=== PATIENT | female | born 1950 | race Caucasian/White ===

== ENCOUNTER 2020-06-20 19:58 | Inpatient (IN) ==
--- OUTSIDE RECORDS SUMMARY | 2020-06-20 20:01 | External Medical Summary | Continuity of Care Document ---
:1950 Author Name Kathy Alves Address Unavailable Unavailable , Care Team Providers Name Role Phone Peewee SAENZ Unavailable [email or web address] Unavailable Problems Active medical history not documented Allergies and Adverse Reactions Codeine Derivatives (Allergy) Reaction: Itching Darvocet-N 100 TABS (Allergy) Reaction: Itching Erythromycin TABS (Allergy) Reaction: It zoraida Imitrex TABS (Allergy) Reaction: Itching Penicillins (Allergy) Reaction: Itching Medications Tessalon Perles 100 MG Oral Capsule; TAKE 1 CAPSULE 3 TIMES DAILY. Refills: 0 clonazePAM 0.5 MG Oral Tablet; TAKE 1 TABLET 3 TIMES DAILY A S NEEDED. Refills: 0 Maxalt 10 MG Oral Tablet; TAKE 1 TABLET AT ONSET OF HEADACHE. MAY REPEAT EVERY 2 HOURS NEEDED. MAXIMUM 3 TABLETS IN 24 HOURS. Refills: 0 Ventolin HFA 108 (90 Base) MCG/ACT Inhal ation Aerosol Solution; INHALE 1 TO 2 PUFFS EVERY 4 TO 6 HOURS NEEDED. Refills: 0 Albuterol Sulfate NEBU Refills: 0 traMADol HCl - 50 MG Oral Tablet; once daily. Refills: 0 traZODone HCl - 150 MG Oral Tablet; TAKE 2 TABLETS AT BEDTIM E. Refills: 0 Mirtazapine 45 MG Oral Tablet; TAKE 1 TABLET AT BEDTIME. Refills: 0 PriLOSEC OTC 20 MG Oral Tablet Delayed Release; TAKE 1 TABLE T DAILY. Refills: 0 Glimepiride 1 MG Oral Tablet; once daily. Refills: 0 Effexor XR 150 MG Oral Capsule Extended Release 24 Hour; MARIN E 1 CAPSULE DAILY. Refills: 0 Simvastatin 40 MG Oral Tablet; TAKE 1 TABLET DAILY AT BEDTIM E. Quantity: 90 Refills: 3 Advair Diskus 500-50 MCG/DOSE Inhalation Aerosol Powder Breath Activated; INHALE 1 PUFF TWICE DAILY. Refills: 0 Magnesium Oxide 400 MG Oral Tablet; TAKE 1 TABLET TWICE CLAYTON Y. Refills: 0 Fenofibrate 134 MG Oral Capsule; TAKE 1 CAPSULE DAILY. Refills: 0 Procedures Procedures not documented Immunizations Immunizations not documented Plan of Treatment Planned Observations Planned Goals not documented Results No Known Results Results not documented Encounters Appointment; Ronda Vides PA-C 04-Dec-2014 15:10 Encounter Diagnosis: Problem not documented
--- NOTE | 2020-06-20 20:06 | Emergency Department Note ---
Impression & Plan Hypoglycemia, COVID-19 ED Provider Note NAME: KANA PACKER AGE: 69 SEX: F : 1950 ARRIVES VIA: Ambulance INFORMANT: Patient, ED PROVIDER(S): Patrick Hamm MD Chief Complaint: Hypoglycemia HPI: Patient reportedly was brought in by EMS due to concern for hypoglycemia. The patient did have a blood sugar in the 30s subsequently 20s was given D10 in route and upon arrival was in the 120s. Patient does take glimepiride as well as Metformin. Patient states she is had no recent changes in her medications. The patient denies any chest pain or shortness of breath. The patient does have a dry nonproductive cough and had a recent inpatient stay in quarantine after Covid. The patient was most recently discharged from [facility]. Patient is a non-smoker. Patient denies any recent travel dysuria hematuria. Patient does have chronic constipation. The patient states that she has been eating normally although she thinks her last meal was lunch time. Patient denies any diarrheal symptoms or vomiting. ROS: See HPI for pertinent positives and negatives. A total of 10 systems were reviewed and otherwise negative. Past medical history: See below Surgical history: See below Social history: See below Physical Exam: GENERAL: Wearing glasses. NAD, non-toxic. EYE EXAM: Normal conjunctiva. PERRL, no anisocoria and EOM's grossly intact w/o pain. NECK: Supple, no nuchal rigidity, no adenopathy, non-tender. No signs of meningismus. LUNGS: Clear to auscultation. Normal chest wall mechanics. HEART: Tachycardic and regular, no MRG. ABDOMEN: Abdomen soft, non-tender, normo-active bowel sounds, no masses, no rebound or guarding. BACK: No CVA TTP. SKIN: No rashes and no bruising. UPPER EXTREMITIES: Upper extremities are grossly normal. LOWER EXTREMITIES: Grossly normal, no edema. NEURO EXAM: A&O x3, cranial nerves II-XII grossly intact, normal speech, moves all 4 extremities on command w/o issue. Differential diagnoses: Infection, dehydration, metabolic abnormality, hypo/hyperglycemia, electrolyte disturbance, anemia, hypoxia, cardiac sources, intracerebral event, toxicologic, neurologic, as well as other pathologies. Course: Patient was seen and evaluated the bedside. Full history physical exam was performed. EKG: Indication: Weakness Sinus tachycardia, rate of 106, normal intervals, left axis deviation. No obvious ST changes. Imaging Studies: 1 view chest x-ray No obvious consolidation, pneumothorax or pleural effusion. Cardiac monitoring: An order was placed for continuous cardiac monitoring. The monitor shows a rate of 102 with sinus tachycardia rhythm. MDM: Patient was seen due to concern for hypoglycemia. Blood work was obtained and the patient was ordered repeat BSG in 1 hour. Patient has a normal white count H&H and platelet count. Patient did have a glucose of 45 and was given an amp of D50. The patient was started on D5 half. Repeat BSG at 302 D5 was stopped. I did speak with the patient's daughter with the patient's permission, who stated that just prior to dinnertime the patient was confused and not making sense. No recent changes in any medications but was recently discharged last from [facility] due to weakness and a week prior had been admitted due to concern for Covid. Patient with normal white count H&H and platelet count. Patient's kidney function is unremarkable. Troponin not detectable. Urinalysis without signs of obvious infection. Patient does have leuk esterase and WBCs but with numerous epithelial cells. The patient denied any dysuria. The patient still positive for Covid negative flu and RSV. Given the patient's intermittent hypoglycemia and the fact that the patient is on sulfonylureas, I did speak with the on-call hospitalist. The patient was admitted to the medicine service by Dr. Gale Critical Care: I have personally spent 37 minutes of critical care time in direct management of this patient. This includes bedside care, interpretation of diagnostic studies, and testing, discussion with consultants, patient, and family members, and other require inpatient management activities. This 37 minutes is in excess of all separately billable procedures. Past Med/Surg History Medical History Diabetes GERD (gastroesophageal reflux disease) HLD (hyperlipidemia) Social History Smoking Status: Never smoker Preferred Language: German Feels Safe at Home: Yes Allergies Allergies Allergy/AdvReac Type Severity Reaction Status Date / Time codeine Allergy Unknown Itchiness Verified 06/20/20 20:52 erythromycin base Allergy Unknown Itchiness Verified 06/20/20 20:52 Penicillins Allergy Unknown Itchiness Verified 06/20/20 20:52 propoxyphene Allergy Unknown UNKNOWN Verified 06/20/20 20:52 sumatriptan Allergy Unknown Unknown Verified 06/20/20 20:52 adhesive tape AdvReac Mild "Rips skin Unverified 06/20/20 20:52 off with it" Home Meds Home Medications Medication Instructions Recorded Confirmed albuterol sulfate 2 puff INHALATION DIRECTED PRN 06/20/20 06/20/20 celecoxib 200 mg PO QAM 06/20/20 06/20/20 cholecalciferol (vitamin D3) 2,000 unit PO QAM 06/20/20 06/20/20 [Vitamin D3] cyclobenzaprine 10 mg PO TID PRN 06/20/20 06/20/20 fenofibrate micronized 134 mg PO QAM 06/20/20 06/20/20 fluticasone propionate 1 spray INTRANASAL QAM 06/20/20 06/20/20 gabapentin 300 mg PO TID 06/20/20 06/20/20 glimepiride 4 mg PO BID 06/20/20 06/20/20 linaclotide [Linzess] 145 mcg PO QAM 06/20/20 06/20/20 magnesium oxide 400 mg PO BID 06/20/20 06/20/20 metformin 500 mg PO BID 06/20/20 06/20/20 piroxicam 20 mg PO QAM 06/20/20 06/20/20 rizatriptan 10 mg PO DIRECTED PRN 06/20/20 06/20/20 rosuvastatin 40 mg PO PM 06/20/20 06/20/20 tramadol 50 mg PO Q6H PRN 06/20/20 06/20/20 venlafaxine 150 mg PO QAM 06/20/20 06/20/20 Results & Data (ED) Vital Signs Vital Signs - 24 hr 06/20/20 20:12 06/20/20 20:27 06/20/20 20:30 Temperature Temperature Source Pulse Rate 92 H 92 H 92 H Pulse Rate [Bilateral Apical] Pulse Rate from SpO2 Sensor 91 H 92 H 92 H Pulse Rhythm Respiratory Rate 17 24 16 Respiratory Effort / Characteristics Respiratory Depth Blood Pressure 147/96 H Blood Pressure [Left Arm] Blood Pressure Mean 113 Blood Pressure Mean [Left Arm] Blood Pressure Position Pulse Oximetry 95 95 97 Oxygen Delivery Method Sepsis Recent Fever Within 48 Hours Sepsis New/Unexplained Change in Mental Status Sepsis Action Taken by Nursing 06/20/20 20:45 06/20/20 20:50 06/20/20 21:00 Temperature 36.8 C Temperature Source Oral Pulse Rate 97 H 98 H 98 H Pulse Rate [Bilateral Apical] Pulse Rate from SpO2 Sensor Pulse Rhythm Regular Respiratory Rate 20 20 19 Respiratory Effort / Characteristics Non-Labored Respiratory Depth Normal Blood Pressure Blood Pressure [Left Arm] Blood Pressure Mean Blood Pressure Mean [Left Arm] Blood Pressure Position Lying Pulse Oximetry 93 93 Oxygen Delivery Method Room Air Room Air Sepsis Recent Fever Within 48 Hours No Sepsis New/Unexplained Change in Mental Status No Sepsis Action Taken by Nursing No Action Required 06/20/20 21:16 06/20/20 21:30 06/20/20 21:31 Temperature Temperature Source Pulse Rate 100 H 97 H 96 H Pulse Rate [Bilateral Apical] Pulse Rate from SpO2 Sensor 102 H 97 H Pulse Rhythm Respiratory Rate 18 18 16 Respiratory Effort / Characteristics Respiratory Depth Blood Pressure 138/78 136/80 Blood Pressure [Left Arm] Blood Pressure Mean 98 98 Blood Pressure Mean [Left Arm] Blood Pressure Position Pulse Oximetry 96 94 Oxygen Delivery Method Sepsis Recent Fever Within 48 Hours Sepsis New/Unexplained Change in Mental Status Sepsis Action Taken by Nursing 06/20/20 22:00 06/20/20 22:01 06/20/20 23:23 Temperature Temperature Source Pulse Rate 98 H 98 H Pulse Rate [Bilateral Apical] 78 Pulse Rate from SpO2 Sensor 98 H 98 H Pulse Rhythm Respiratory Rate 20 22 20 Respiratory Effort / Characteristics Respiratory Depth Blood Pressure 137/78 Blood Pressure [Left Arm] 133/78 Blood Pressure Mean 97 Blood Pressure Mean [Left Arm] 96 Blood Pressure Position Pulse Oximetry 91 90 95 Oxygen Delivery Method Sepsis Recent Fever Within 48 Hours Sepsis New/Unexplained Change in Mental Status Sepsis Action Taken by [facility] Medications Current Medication List: was personally reviewed by me Laboratory Data Attestation: I reviewed the patient's lab results. Result diagrams: 06/20/20 19:30 06/20/20 21:08 Lab Results 06/20/20 06/20/20 06/20/20 Range/Units 19:30 19:30 19:30 WBC 7.64 (4.8-10.8) K/uL RBC 4.68 (4.2-5.4) M/uL Hgb 14.2 (12.0-16.0) g/dL Hct 40.8 (37-47) % MCV 87.2 (80-100) fL MCH 30.3 (25-34) pg MCHC 34.8 (32-36) g/dL RDW Std Deviation 45.7 (36.4-46.3) fL RDW Coeff of Rufus 14.6 H (11.5-14.5) % Plt Count 377 (130-400) K/uL MPV 10.3 (7.4-10.4) fL Immature Gran % (Auto) 0.1 % Neut % (Auto) 60.8 % Lymph % (Auto) 30.9 % Moca % (Auto) 5.8 % Eos % (Auto) 2.1 % Baso % (Auto) 0.3 % Neut # (Auto) 4.65 (1.4-6.5) K/uL Lymph # (Auto) 2.36 (1.2-3.4) K/uL Moca # (Auto) 0.44 (0.11-0.59) K/uL Eos # (Auto) 0.16 (0-0.5) K/uL Baso # (Auto) 0.02 (0-0.2) K/uL Immature Gran # (Auto) 0.01 (0.00-0.02) K/uL PT 10.6 (9.0-12.0) Seconds INR 1.0 (0.9-1.1) Sodium Cancelled Potassium Cancelled Chloride Cancelled Carbon Dioxide Cancelled Anion Gap Cancelled BUN Cancelled Creatinine Cancelled Est Cr Clr Drug Dosing Cancelled Est GFR ( Amer) Cancelled Est GFR (Non-Af Amer) Cancelled BUN/Creatinine Ratio Cancelled Glucose Cancelled POC Glucose (70-99) mg/dl Calcium Cancelled Magnesium Cancelled Total Bilirubin Cancelled AST Cancelled ALT Cancelled Alkaline Phosphatase Cancelled Troponin I Cancelled Total Protein Cancelled Albumin Cancelled Globulin Cancelled Albumin/Globulin Ratio Cancelled TSH Cancelled Urine Color Urine Appearance (Clear) Urine pH (4.5-7.5) Ur Specific Kevil (1.000-1.030) Urine Protein (Negative) Urine Glucose (UA) (Negative) Urine Ketones (Negative) Urine Blood (Negative) Urine Nitrite (Negative) Urine Bilirubin (Negative) Urine Urobilinogen (Negative) Ur Leukocyte Esterase (Negative) Urine WBC (Auto) (0-5) /hpf Urine RBC (Auto) (0-4) /hpf U Hyaline Cast (Auto) (0-5) /lpf U Epithel Cells (Auto) (0-5) /lpf Urine Bacteria (Auto) (Negative) COVID-19 Eval Order SARS-CoV-2 (PCR) (Negative) Influenza Type A (PCR) (Neg) Influenza Type B (PCR) (Neg) RSV (RT-PCR) (Neg) 06/20/20 06/20/20 06/20/20 Range/Units 20:09 20:35 20:35 WBC (4.8-10.8) K/uL RBC (4.2-5.4) M/uL Hgb (12.0-16.0) g/dL Hct (37-47) % MCV (80-100) fL MCH (25-34) pg MCHC (32-36) g/dL RDW Std Deviation (36.4-46.3) fL RDW Coeff of Rufus (11.5-14.5) % Plt Count (130-400) K/uL MPV (7.4-10.4) fL Immature Gran % (Auto) % Neut % (Auto) % Lymph % (Auto) % Moca % (Auto) % Eos % (Auto) % Baso % (Auto) % Neut # (Auto) (1.4-6.5) K/uL Lymph # (Auto) (1.2-3.4) K/uL Moca # (Auto) (0.11-0.59) K/uL Eos # (Auto) (0-0.5) K/uL Baso # (Auto) (0-0.2) K/uL Immature Gran # (Auto) (0.00-0.02) K/uL PT (9.0-12.0) Seconds INR (0.9-1.1) Sodium Potassium Chloride Carbon Dioxide Anion Gap BUN Creatinine Est Cr Clr Drug Dosing Est GFR ( Amer) Est GFR (Non-Af Amer) BUN/Creatinine Ratio Glucose POC Glucose 127 H (70-99) mg/dl Calcium Magnesium Total Bilirubin AST ALT Alkaline Phosphatase Troponin I Total Protein Albumin Globulin Albumin/Globulin Ratio TSH Urine Color Urine Appearance (Clear) Urine pH (4.5-7.5) Ur Specific Kevil (1.000-1.030) Urine Protein (Negative) Urine Glucose (UA) (Negative) Urine Ketones (Negative) Urine Blood (Negative) Urine Nitrite (Negative) Urine Bilirubin (Negative) Urine Urobilinogen (Negative) Ur Leukocyte Esterase (Negative) Urine WBC (Auto) (0-5) /hpf Urine RBC (Auto) (0-4) /hpf U Hyaline Cast (Auto) (0-5) /lpf U Epithel Cells (Auto) (0-5) /lpf Urine Bacteria (Auto) (Negative) COVID-19 Eval Order CovFluRsv at [facility] SARS-CoV-2 (PCR) POSITIVE A* (Negative) Influenza Type A (PCR) Negative (Neg) Influenza Type B (PCR) Negative (Neg) RSV (RT-PCR) Negative (Neg) 06/20/20 06/20/20 06/20/20 Range/Units 21:00 21:08 21:32 WBC (4.8-10.8) K/uL RBC (4.2-5.4) M/uL Hgb (12.0-16.0) g/dL Hct (37-47) % MCV (80-100) fL MCH (25-34) pg MCHC (32-36) g/dL RDW Std Deviation (36.4-46.3) fL RDW Coeff of Rufus (11.5-14.5) % Plt Count (130-400) K/uL MPV (7.4-10.4) fL Immature Gran % (Auto) % Neut % (Auto) % Lymph % (Auto) % Moca % (Auto) % Eos % (Auto) % Baso % (Auto) % Neut # (Auto) (1.4-6.5) K/uL Lymph # (Auto) (1.2-3.4) K/uL Moca # (Auto) (0.11-0.59) K/uL Eos # (Auto) (0-0.5) K/uL Baso # (Auto) (0-0.2) K/uL Immature Gran # (Auto) (0.00-0.02) K/uL PT (9.0-12.0) Seconds INR (0.9-1.1) Sodium 142 Potassium 3.6 Chloride 110 H Carbon Dioxide 26 Anion Gap 6.0 BUN 15 Creatinine 1.14 Est Cr Clr Drug Dosing 36.8 Est GFR ( Amer) 56.8 Est GFR (Non-Af Amer) 49.0 BUN/Creatinine Ratio 13.4 Glucose 39 L* POC Glucose 45 L* 321 H* (70-99) mg/dl Calcium 8.4 L Magnesium 2.1 Total Bilirubin 0.4 AST 34 ALT 36 Alkaline Phosphatase 39 L Troponin I < 0.015 Total Protein 6.1 L Albumin 3.6 Globulin 2.5 Albumin/Globulin Ratio 1.4 TSH 0.832 Urine Color Urine Appearance (Clear) Urine pH (4.5-7.5) Ur Specific Kevil (1.000-1.030) Urine Protein (Negative) Urine Glucose (UA) (Negative) Urine Ketones (Negative) Urine Blood (Negative) Urine Nitrite (Negative) Urine Bilirubin (Negative) Urine Urobilinogen (Negative) Ur Leukocyte Esterase (Negative) Urine WBC (Auto) (0-5) /hpf Urine RBC (Auto) (0-4) /hpf U Hyaline Cast (Auto) (0-5) /lpf U Epithel Cells (Auto) (0-5) /lpf Urine Bacteria (Auto) (Negative) COVID-19 Eval Order SARS-CoV-2 (PCR) (Negative) Influenza Type A (PCR) (Neg) Influenza Type B (PCR) (Neg) RSV (RT-PCR) (Neg) 06/20/20 06/20/20 Range/Units 22:32 22:40 WBC (4.8-10.8) K/uL RBC (4.2-5.4) M/uL Hgb (12.0-16.0) g/dL Hct (37-47) % MCV (80-100) fL MCH (25-34) pg MCHC (32-36) g/dL RDW Std Deviation (36.4-46.3) fL RDW Coeff of Rufus (11.5-14.5) % Plt Count (130-400) K/uL MPV (7.4-10.4) fL Immature Gran % (Auto) % Neut % (Auto) % Lymph % (Auto) % Moca % (Auto) % Eos % (Auto) % Baso % (Auto) % Neut # (Auto) (1.4-6.5) K/uL Lymph # (Auto) (1.2-3.4) K/uL Moca # (Auto) (0.11-0.59) K/uL Eos # (Auto) (0-0.5) K/uL Baso # (Auto) (0-0.2) K/uL Immature Gran # (Auto) (0.00-0.02) K/uL PT (9.0-12.0) Seconds INR (0.9-1.1) Sodium Potassium Chloride Carbon Dioxide Anion Gap BUN Creatinine Est Cr Clr Drug Dosing Est GFR ( Amer) Est GFR (Non-Af Amer) BUN/Creatinine Ratio Glucose POC Glucose 212 H (70-99) mg/dl Calcium Magnesium Total Bilirubin AST ALT Alkaline Phosphatase Troponin I Total Protein Albumin Globulin Albumin/Globulin Ratio TSH Urine Color Yellow Urine Appearance Clear (Clear) Urine pH 6.5 (4.5-7.5) Ur Specific Kevil 1.006 (1.000-1.030) Urine Protein Negative (Negative) Urine Glucose (UA) 1+ H (Negative) Urine Ketones Negative (Negative) Urine Blood Negative (Negative) Urine Nitrite Negative (Negative) Urine Bilirubin Negative (Negative) Urine Urobilinogen Negative (Negative) Ur Leukocyte Esterase Trace H (Negative) Urine WBC (Auto) 5-10 H (0-5) /hpf Urine RBC (Auto) 0-4 (0-4) /hpf U Hyaline Cast (Auto) 0 (0-5) /lpf U Epithel Cells (Auto) >30 H (0-5) /lpf Urine Bacteria (Auto) Negative (Negative) COVID-19 Eval Order SARS-CoV-2 (PCR) (Negative) Influenza Type A (PCR) (Neg) Influenza Type B (PCR) (Neg) RSV (RT-PCR) (Neg) Administered Medications Dextrose/Sodium Chloride (D5w And 1/2nss) 1,000 mls @ 250 mls/hr IV .Q4H MARTINA Stop: 07/20/20 21:14 Last Infusion: 06/20/20 21:44 Dose: 0 mls/hr Documented by: [id number] Admin: 06/20/20 21:16 Dose: 250 mls/hr Documented by: [id number] Discontinued Medications Dextrose (Dextrose 50% 50 Ml Syringe) Confirm Administered Dose 50 ml IV .STK- MED ONE Stop: 06/20/20 21:04 Last Admin: 06/20/20 21:06 Dose: 50 ml Documented by: [id number] Dextrose (Dextrose 50% 50 Ml Syringe) 50 ml IV NOW STA Stop: 06/20/20 21:05 Last Admin: 06/20/20 21:07 Dose: Not Given Documented by: [id number] Sodium Chloride (Nss 1000ml) 1,000 mls @ 999 mls/hr IV .Q1H1M MARTINA Stop: 06/20/20 21:30 Last Infusion: 06/20/20 21:20 Dose: 0 mls/hr Documented by: [id number] Infusion: 06/20/20 21:08 Dose: 0 mls/hr Documented by: [id number] Admin: 06/20/20 20:32 Dose: 999 mls/hr Documented by: [id number] Ondansetron HCl (Ondansetron Inj 2 Mg/Ml 2 Ml Vial) 4 mg IV NOW STA Stop: 06/20/20 20:17 Last Admin: 06/20/20 20:29 Dose: 4 mg Documented by: [id number] Discharge Plan Visit Data Chief Complaint: Hypoglycemia Stated Complaint: UNRESPONSIVE ED Provider: Patrick Hamm Discharge Problem: Hypoglycemia, COVID-19 Forms Stand Alone Forms: [facility] [employer] Prescriptions Prescriptions: No Action celecoxib 200 mg capsule 200 mg PO QAM RF: 0 cyclobenzaprine 10 mg tablet 10 mg PO TID PRN (Reason: muscle spasms) RF: 0 metformin 500 mg tablet 500 mg PO BID RF: 0 rizatriptan 10 mg tablet 10 mg PO DIRECTED PRN (Reason: Migraine Headache) RF: 0 venlafaxine 150 mg capsule,extended release 24hr 150 mg PO QAM RF: 0 tramadol 50 mg tablet 50 mg PO Q6H PRN (Reason: Pain) RF: 0 fenofibrate micronized 134 mg capsule 134 mg PO QAM RF: 0 magnesium oxide 400 mg (241.3 mg magnesium) tablet 400 mg PO BID RF: 0 glimepiride 4 mg tablet 4 mg PO BID RF: 0 gabapentin 300 mg capsule 300 mg PO TID RF: 0 albuterol sulfate 90 mcg/actuation HFA aerosol inhaler 2 puff INHALATION DIRECTED PRN (Reason: Shortness Of Breath) RF: 0 piroxicam 20 mg capsule 20 mg PO QAM RF: 0 fluticasone propionate 50 mcg/actuation spray,suspension 1 spray INTRANASAL QAM RF: 0 rosuvastatin 40 mg tablet 40 mg PO PM RF: 0 cholecalciferol (vitamin D3) [Vitamin D3] 50 mcg (2,000 unit) tablet 2,000 unit PO QAM RF: 0 Linzess 145 mcg capsule 145 mcg PO QAM RF: 0
[2020-06-20] MEDS ORDERED: ONDANSETRON INJ 2 MG/ML 2 ML VIAL IV STA (20:16)
[2020-06-20] MEDS ORDERED: SODIUM CHLORIDE 0.9% 1000ML 1,000 ML IV SCH (20:30)
[2020-06-20 20:33] LABS: Basophils # (auto) 0.02 K/uL (0-0.2); Basophils % (auto) 0.3 %; Eosinophils # (auto) 0.16 K/uL (0-0.5); Eosinophils % (auto) 2.1 %; Hematocrit (blood only) 40.8 % (37-47); Hemoglobin 14.2 g/dL (12.0-16.0); Immature Granulocytes # (auto) 0.01 K/uL (0.00-0.02); Immature Granulocytes % (auto) 0.1 %; Lymphocytes # (auto) 2.36 K/uL (1.2-3.4); Lymphocytes % (auto) 30.9 %; Mean Corpuscular Hemoglobin 30.3 pg (25-34); Mean Corpuscular Hgb Conc 34.8 g/dL (32-36); Mean Corpuscular Volume 87.2 fL (80-100); Mean Platelet Volume 10.3 fL (7.4-10.4); Monocytes # (auto) 0.44 K/uL (0.11-0.59); Monocytes % (auto) 5.8 %; Neutrophils # (auto) 4.65 K/uL (1.4-6.5); Neutrophils % (auto) 60.8 %; Platelet Count 377 K/uL (130-400); RDW Coefficient of Variation 14.6 % (11.5-14.5); RDW Standard Deviation 45.7 fL (36.4-46.3); Red Blood Count 4.68 M/uL (4.2-5.4); White Blood Count 7.64 K/uL (4.8-10.8)
[2020-06-20 20:43] LABS: Prothrombin Time 10.6 Seconds (9.0-12.0)
[2020-06-20] MEDS ORDERED: DEXTROSE 50% 50 ML SYRINGE IV ONE (21:03)
[2020-06-20] MEDS ORDERED: DEXTROSE 50% 50 ML SYRINGE IV STA (21:04)
[2020-06-20] MEDS ORDERED: D5W AND 1/2NSS 1,000 ML IV SCH (21:15)
[2020-06-20 21:26] LABS: Influenza A virus by PCR Negative (Neg); Influenza B virus by PCR Negative (Neg); RSV by PCR Negative (Neg)
[2020-06-20 21:39] LABS: Alanine Aminotransferase 36 U/L (12-78); Albumin Level 3.6 gm/dl (3.4-5.0); Aspartate Aminotransferase 34 U/L (15-37); BUN Creatinine Ratio 13.4 (10-20); Blood Urea Nitrogen 15 mg/dl (7-18); Calcium 8.4 mg/dl (8.5-10.1); Carbon Dioxide 26 mmol/L (21-32); Chloride 110 mmol/L (98-107); Creatinine Clr Calc Pharmacy 36.8 ml/min; Est GFR (African American) 56.8; Glucose 39 mg/dl (70-99); Magnesium 2.1 mg/dl (1.8-2.4); Potassium 3.6 mmol/L (3.5-5.1); Sodium 142 mmol/L (136-145)
[2020-06-20 21:39] LABS: SARS CoV2 RNA(COVID-19) InHosp POSITIVE (Negative)
[2020-06-20 21:51] LABS: Albumin Globulin Ratio 1.4 (0.9-2); Alkaline Phosphatase 39 U/L (45-117); Bilirubin,Total 0.4 mg/dl (0.2-1); Globulin 2.5 gm/dl (2.5-4.0); Thyroid Stimulating Hormone 0.832 uIu/ml (0.300-4.500); Total Protein 6.1 gm/dl (6.4-8.2); Troponin I < 0.015 ng/ml (0-0.045)
[2020-06-20 22:49] LABS: Appearance Urine Clear (Clear); Bilirubin Urine Negative (Negative); Blood Urine Negative (Negative); Color Urine Yellow; Glucose Urine UA 1+ (Negative); Ketones Urine Negative (Negative); Leukocyte Esterase Urine Trace (Negative); Nitrite Urine Negative (Negative); Protein Urine Negative (Negative); Specific Gravity Urine 1.006 (1.000-1.030); Urobilinogen Urine Negative (Negative); pH Urine 6.5 (4.5-7.5)
[2020-06-20 23:00] LABS: Bacteria Urine Automated Negative (Negative); Cast Urine Automated 0 /lpf (0-5); Epithelial Cell Urine Auto >30 /lpf (0-5); RBC Urine Automated 0-4 /hpf (0-4)
--- NOTE | 2020-06-20 23:52 | History & Physical Report ---
Date of Service June 20, 2020 Assessment & Plan (1) Diabetes mellitus with hypoglycemia: Hold glimepiride and Metformin. Place on D5 normal saline plus KCl 20 mEq at [address] on Accu-Cheks before meals and at bedtime with NovoLog coverage for scale Check hemoglobin A1c Unclear at this time as to why patient became hypoglycemic. She did report decreased oral intake earlier today, and patient was somewhat confused about medications when talking with the techs in the ED Present on Admission?: Yes (2) COVID-19: COVID-19 infection with hypoxia- Chest x-ray appears normal, however, will keep in isolation at this time until records can be reviewed Pulse ox on room air variable from 90 to 95%. Nasal cannula oxygen, titrate to keep pulse ox 94 to 95% Patient reportedly was in [facility] twice in the recent interval, with most recent discharge a few days ago, for treatment of COVID-19. Patient does test positive for COVID-19 in the ED this evening, but does not appear to have significant symptoms at this time. Zinc sulfate 220 mg p.o. every morning Vitamin D 2000 international units p.o. every morning Ventolin HFA 2 puffs every 2 hours as needed, and DuoNebs every 2 hours as needed. Present on Admission?: Yes (3) Hypoxia: See above Present on Admission?: Yes (4) HLD (hyperlipidemia): Continue fenofibrate 145 mg p.o. daily and rosuvastatin 40 mg p.o. every evening Present on Admission?: Yes (5) Depression: Continue venlafaxine 150 mg p.o. daily in the a.m. Present on Admission?: Yes (6) Muscle spasm: Continue cyclobenzaprine 10 mg p.o. 3 times daily as needed Present on Admission?: Yes (7) Migraine headache: Continue rizatriptan as needed Present on Admission?: Yes (8) Peripheral neuropathy: Continue gabapentin 300 mg p.o. 3 times daily Present on Admission?: Yes (9) Arthritis: Continue Celebrex 200 mg p.o. every morning. Hold piroxicam. Continue tramadol 50 mg p.o. every 6 hours as needed moderate pain Present on Admission?: Yes History of Present Illness Chief Complaint: The patient was brought into the emergency department by EMS after having a blood sugar in the 20s and 30s in the outpatient setting. Primary Care Provider: PT DECLINED The patient is a 69-year-old female with a past medical history including muscle spasm, hyperlipidemia, peripheral neuropathy, diabetes mellitus, diabetic gastroparesis, osteoarthritis, migraine headache, depression and chronic pain syndrome. Her HPI is somewhat limited as the patient is confused in the emergency department, but she was brought into the emergency department by EMS due to low blood sugars in the 20s to 30sand after being given D10 en route her blood sugar was 120s upon arrival in the ED. The patient denies taking any extra diabetic medications, and she does remember eating oatmeal for breakfast in the morning, but cannot contributing further at this point. She does report that she was in [facility] twice for treatment for COVID-19 infection, and was discharged from there a few days ago. She cannot say how she was treated and for what interval of times. Allergies Allergy/AdvReac Type Severity Reaction Status Date / Time codeine Allergy Unknown Itchiness Verified 06/20/20 20:52 erythromycin base Allergy Unknown Itchiness Verified 06/20/20 20:52 Penicillins Allergy Unknown Itchiness Verified 06/20/20 20:52 propoxyphene Allergy Unknown UNKNOWN Verified 06/20/20 20:52 sumatriptan Allergy Unknown Unknown Verified 06/20/20 20:52 adhesive tape AdvReac Mild "Rips skin Unverified 06/20/20 20:52 off with it" Home Medications Medication Instructions Recorded Confirmed Type albuterol sulfate 2 puff INHALATION DIRECTED PRN 06/20/20 06/20/20 History celecoxib 200 mg PO QAM 06/20/20 06/20/20 History cholecalciferol (vitamin D3) 2,000 unit PO QAM 06/20/20 06/20/20 History [Vitamin D3] cyclobenzaprine 10 mg PO TID PRN 06/20/20 06/20/20 History fenofibrate micronized 134 mg PO QAM 06/20/20 06/20/20 History fluticasone propionate 1 spray INTRANASAL QAM 06/20/20 06/20/20 History gabapentin 300 mg PO TID 06/20/20 06/20/20 History glimepiride 4 mg PO BID 06/20/20 06/20/20 History linaclotide [Linzess] 145 mcg PO QAM 06/20/20 06/20/20 History magnesium oxide 400 mg PO BID 06/20/20 06/20/20 History metformin 500 mg PO BID 06/20/20 06/20/20 History piroxicam 20 mg PO QAM 06/20/20 06/20/20 History rizatriptan 10 mg PO DIRECTED PRN 06/20/20 06/20/20 History rosuvastatin 40 mg PO PM 06/20/20 06/20/20 History tramadol 50 mg PO Q6H PRN 06/20/20 06/20/20 History venlafaxine 150 mg PO QAM 06/20/20 06/20/20 History Past Med/Surg History Medical History Diabetes GERD (gastroesophageal reflux disease) HLD (hyperlipidemia) Social History Smoking Status: Never smoker Hx Alcohol Use: No Hx Substance Use: No Preferred Language: [place]ijani Communication Ability: Effective Solution Spec Required: No Beliefs That Will Affect Care: None Current Living Situation: Alone Other Information That Helps Us Care for You: No Feels Safe at Home: Yes Safety Concerns: Feels Safe At This Time Assistive Devices: Denture - Upper and Glasses Review of Systems Review of Systems: Unobtainable due to cognitive status Physical Exam Physical Exam: The patient is awake, confused, normocephalic and atraumatic, lying in bed and in no acute distress. HEENT--PERRL, EOMI, mucous membranes and oropharynx dry. Neck--supple. No JVD. No bruits. Thyroid normal, trachea midline, no adenopathy. Heart--normal S1 and S2. No murmurs, rubs or gallops. Lungs--clear bilaterally, no respiratory distress, no accessory muscle use. Abdomen--normal bowel sounds and soft. Nontender. Nondistended, no hernias or masses, no organomegaly. Extremities--no cyanosis or clubbing. No edema. Dermatologic--normal skin turgor, normal color, no abnormal lymph nodes, no rash. Neurologic--cranial nerves II through XII grossly intact. Rheumatologic--normal range of motion. Psychiatric--normal affect, but confused Results & Data Results & Data ([place]) Vital Signs (Past 12 Hours) Vital Signs Temp Pulse Pulse Resp BP BP Pulse Ox 06/20/20 23:23 78 20 133/78 95 06/20/20 22:01 98 H 22 90 06/20/20 22:00 98 H 20 137/78 91 06/20/20 21:31 96 H 16 06/20/20 21:30 97 H 18 136/80 94 06/20/20 21:16 100 H 18 138/78 96 06/20/20 21:00 98 H 19 06/20/20 20:50 98 H 20 93 06/20/20 20:45 98.2 F 97 H 20 93 06/20/20 20:30 92 H 16 97 06/20/20 20:27 92 H 24 95 06/20/20 20:12 92 H 17 147/96 H 95 Laboratory Results Laboratory Results WBC 7.64 K/uL (4.8-10.8) 06/20/20 19:30 RBC 4.68 M/uL (4.2-5.4) 06/20/20 19:30 Hgb 14.2 g/dL (12.0-16.0) 06/20/20 19:30 Hct 40.8 % (37-47) 06/20/20 19:30 MCV 87.2 fL (80-100) 06/20/20 19:30 MCH 30.3 pg (25-34) 06/20/20 19:30 MCHC 34.8 g/dL (32-36) 06/20/20 19:30 RDW Std Deviation 45.7 fL (36.4-46.3) 06/20/20 19:30 RDW Coeff of Rufus 14.6 % (11.5-14.5) H 06/20/20 19:30 Plt Count 377 K/uL (130-400) 06/20/20 19:30 MPV 10.3 fL (7.4-10.4) 06/20/20 19:30 Immature Gran % (Auto) 0.1 % 06/20/20 19:30 Neut % (Auto) 60.8 % 06/20/20 19:30 Lymph % (Auto) 30.9 % 06/20/20 19:30 Orange % (Auto) 5.8 % 06/20/20 19:30 Eos % (Auto) 2.1 % 06/20/20 19:30 Baso % (Auto) 0.3 % 06/20/20 19:30 Neut # (Auto) 4.65 K/uL (1.4-6.5) 06/20/20 19:30 Lymph # (Auto) 2.36 K/uL (1.2-3.4) 06/20/20 19:30 Orange # (Auto) 0.44 K/uL (0.11-0.59) 06/20/20 19:30 Eos # (Auto) 0.16 K/uL (0-0.5) 06/20/20 19:30 Baso # (Auto) 0.02 K/uL (0-0.2) 06/20/20 19:30 Immature Gran # (Auto) 0.01 K/uL (0.00-0.02) 06/20/20 19:30 PT 10.6 Seconds (9.0-12.0) 06/20/20 19: INR 1.0 (0.9-1.1) 06/20/20 19:30 Sodium 142 mmol/L (136-145) 06/20/20 21:08 Potassium 3.6 mmol/L (3.5-5.1) 06/20/20 21:08 Chloride 110 mmol/L (98-107) H 06/20/20 21:08 Carbon Dioxide 26 mmol/L (21-32) 06/20/20 21:08 Anion Gap 6.0 (3-11) 06/20/20 21:08 BUN 15 mg/dl (7-18) 06/20/20 21:08 Creatinine 1.14 mg/dl (0.6-1.2) 06/20/20 21:08 Est Cr Clr Drug Dosing 36.8 ml/min 06/20/20 21:08 Est GFR ( Amer) 56.8 06/20/20 21:08 Est GFR (Non-Af Amer) 49.0 06/20/20 21:08 BUN/Creatinine Ratio 13.4 (10-20) 06/20/20 21:08 Glucose 39 mg/dl (70-99) L* 06/20/20 21:08 POC Glucose 150 mg/dl (70-99) H 06/21/20 02:00 Calcium 8.4 mg/dl (8.5-10.1) L 06/20/20 21:08 Magnesium 2.1 mg/dl (1.8-2.4) 06/20/20 21:08 Total Bilirubin 0.4 mg/dl (0.2-1) 06/20/20 21:08 AST 34 U/L (15-37) 06/20/20 21:08 ALT 36 U/L (12-78) 06/20/20 21:08 Alkaline Phosphatase 39 U/L (45-117) L 06/20/20 21:08 Troponin I < 0.015 ng/ml (0-0.045) 06/20/20 21:08 Total Protein 6.1 gm/dl (6.4-8.2) L 06/20/20 21:08 Albumin 3.6 gm/dl (3.4-5.0) 06/20/20 21:08 Globulin 2.5 gm/dl (2.5-4.0) 06/20/20 21:08 Albumin/Globulin Ratio 1.4 (0.9-2) 06/20/20 21:08 TSH 0.832 uIu/ml (0.300-4.500) 06/20/20 21:08 Urine Color Yellow 06/20/20 22:40 Urine Appearance Clear (Clear) 06/20/20 22:40 Urine pH 6.5 (4.5-7.5) 06/20/20 22:40 Ur Specific [place] 1.006 (1.000-1.030) 06/20/20 22:40 Urine Protein Negative (Negative) 06/20/20 22:40 Urine Glucose (UA) 1+ (Negative) H 06/20/20 22:40 Urine Ketones Negative (Negative) 06/20/20 22:40 Urine Blood Negative (Negative) 06/20/20 22:40 Urine Nitrite Negative (Negative) 06/20/20 22:40 Urine Bilirubin Negative (Negative) 06/20/20 22:40 Urine Urobilinogen Negative (Negative) 06/20/20 22:40 Ur Leukocyte Esterase Trace (Negative) H 06/20/20 22:40 Urine WBC (Auto) 5-10 /hpf (0-5) H 06/20/20 22:40 Urine RBC (Auto) 0-4 /hpf (0-4) 06/20/20 22:40 U Hyaline Cast (Auto) 0 /lpf (0-5) 06/20/20 22:40 U Epithel Cells (Auto) >30 /lpf (0-5) H 06/20/20 22:40 Urine Bacteria (Auto) Negative (Negative) 06/20/20 22:40 COVID-19 Eval Order CovFluRsv at [facility] 06/20/20 20:35 SARS-CoV-2 (PCR) POSITIVE (Negative) A* 06/20/20 20:35 Influenza Type A (PCR) Negative (Neg) 06/20/20 20:35 Influenza Type B (PCR) Negative (Neg) 06/20/20 20:35 RSV (RT-PCR) Negative (Neg) 06/20/20 20:35 Code Status & VTE Plan Code Status Full code VTE Prophylaxis Plan VTE Prophylaxis will be ordered: Yes PG Care Time/CCT Total # of Minutes Spent Total Time Spent with Patient: Total time spent is greater than 50% in coordination of care (as documented) at patient's floor/unit and/or counseling patient: Coding Level of Care Code 35480 Initial Inpt Care Lvl 3 Diagnoses Diabetes mellitus with hypoglycemia E11.649 COVID-19 U07.1 Hypoxia R09.02 HLD (hyperlipidemia) E78.5 Depression F32.9 Muscle spasm M62.838 Migraine headache G43.909 Peripheral neuropathy G62.9 Arthritis M19.90
[2020-06-21] MEDS ORDERED: traMADol HCL 50 MG TABLET PO PRN (01:06)
[2020-06-21] MEDS ORDERED: GLUCAGON FOR INJ 1 MG VIAL SQ PRN (01:06)
[2020-06-21] MEDS ORDERED: RIZATRIPTAN BENZOATE 10 MG TAB PO PRN (01:06)
[2020-06-21] MEDS ORDERED: GLUCOSE 10 TABS/TUBE PO PRN (01:06)
[2020-06-21] MEDS ORDERED: ONDANSETRON INJ 2 MG/ML 2 ML VIAL IV PRN (01:06)
[2020-06-21] MEDS ORDERED: GLUCOSE 40% GEL 15 GM TUBE PO PRN (01:06)
[2020-06-21] MEDS ORDERED: ALBUTEROL HFA 8 GM INHALER INH PRN (01:06)
[2020-06-21] MEDS ORDERED: ACETAMINOPHEN 325 MG TAB PO PRN (01:06)
[2020-06-21] MEDS ORDERED: CARBOHYDRATES FOR HYPOGLYCEMIA PO PRN (01:06)
[2020-06-21] MEDS ORDERED: DEXTROSE 50% 50 ML SYRINGE IV ONE (01:08)
[2020-06-21] MEDS ORDERED: CYCLOBENZAPRINE HCL 10 MG TAB PO PRN (01:09)
[2020-06-21] MEDS: DEXTROSE 50% 50 ML SYRINGE IV PRN ×2 (01:12→04:10)
[2020-06-21] MEDS: D5NSS + 20MEQ KCL 20 MEQ/1,000 ML BAG IV SCH ×2 (01:23→10:22)
--- NOTE | 2020-06-21 07:08 | XRay Report ---
XR chest 1V portable CLINICAL HISTORY: weakness COMPARISON STUDY: Chest radiograph and chest CT November 02, 2014. FINDINGS: Lung volumes are normal. Linear bilateral opacities favor atelectasis or scarring. There is no pneumothorax or pleural effusion. Cardiac size is normal. Mediastinal contours are normal. There is no evidence for pulmonary edema. IMPRESSION: No acute cardiopulmonary findings. ACT 112: Negative or not required by law. Electronically signed by: Fausto Yoon M.D. 06/21/2020 7:06 AM
[2020-06-21 08:08] LABS: Basophils # (auto) 0.02 K/uL (0-0.2); Basophils % (auto) 0.3 %; Eosinophils # (auto) 0.22 K/uL (0-0.5); Eosinophils % (auto) 3.7 %; Hematocrit (blood only) 35.9 % (37-47); Hemoglobin 12.2 g/dL (12.0-16.0); Immature Granulocytes # (auto) 0.01 K/uL (0.00-0.02); Immature Granulocytes % (auto) 0.2 %; Lymphocytes # (auto) 2.56 K/uL (1.2-3.4); Lymphocytes % (auto) 43.1 %; Mean Corpuscular Volume 88.4 fL (80-100); Mean Platelet Volume 9.9 fL (7.4-10.4); Monocytes # (auto) 0.47 K/uL (0.11-0.59); Monocytes % (auto) 7.9 %; Neutrophils # (auto) 2.66 K/uL (1.4-6.5); Neutrophils % (auto) 44.8 %; Platelet Count 317 K/uL (130-400); RDW Coefficient of Variation 14.9 % (11.5-14.5); RDW Standard Deviation 47.5 fL (36.4-46.3); Red Blood Count 4.06 M/uL (4.2-5.4); White Blood Count 5.94 K/uL (4.8-10.8)
[2020-06-21] MEDS: TRICOR~ORDER AWAITING ACTION SCH ×3 (08:12→21:53)
[2020-06-21] MEDS: MAGNESIUM OXIDE 400 MG TAB PO SCH ×2 (08:13→19:59)
[2020-06-21] MEDS: VENLAFAXINE HCL XR 150 MG CAPXR PO SCH (08:13)
[2020-06-21] MEDS: ZINC SULFATE 220 MG CAPSULE PO SCH (08:13)
[2020-06-21] MEDS: CeleBREX 200 MG CAP PO SCH (08:13)
[2020-06-21] MEDS: GABAPENTIN 300 MG CAP PO SCH ×3 (08:13→19:59)
[2020-06-21] MEDS: CHOLECALCIFEROL 1,000 UNITS 25 MCG TAB PO SCH (08:13)
[2020-06-21] MEDS: LINACLOTIDE 145 MCG CAPSULE PO SCH (08:14)
[2020-06-21] MEDS: INSULIN ASPART 100 UNITS/ML 3 ML PEN SC SCH ×4 (08:18→20:57)
[2020-06-21 08:46] LABS: Albumin Level 3.4 gm/dl (3.4-5.0); BUN Creatinine Ratio 12.4 (10-20); Calcium 8.7 mg/dl (8.5-10.1); Creatinine Clr Calc Pharmacy 39.6 ml/min; Est GFR (Non-African American) 53.5; Potassium 3.8 mmol/L (3.5-5.1)
[2020-06-21 08:49] LABS: Albumin Globulin Ratio 1.4 (0.9-2); Bilirubin,Total 0.4 mg/dl (0.2-1); Globulin 2.5 gm/dl (2.5-4.0); Total Protein 5.9 gm/dl (6.4-8.2)
[2020-06-21 09:00] LABS: Estimated Average Glucose 157 mg/dl; Hemoglobin A1C 7.1 % (4.5-5.6)
--- NOTE | 2020-06-21 12:24 | Electrocardiogram Report ---
Test Reason : Blood Pressure : / mmHG Vent. Rate : 106 BPM Atrial Rate : 106 BPM P-R Int : 168 ms QRS Dur : 074 ms QT Int : 334 ms P-R-T Axes : 040 -53 036 degrees QTc Int : 443 ms Sinus tachycardia Left axis deviation Anterior infarct (cited on or before 02-NOV-2014) Abnormal ECG When compared with ECG of 02-NOV-2014 21:11, No significant change was found Confirmed by Bimal Zuniga ([id number]) on 06/21/2020 12:24:46 PM Referred By: REFERRED SELF Confirmed By:Bimal Zuniga
--- NOTE | 2020-06-21 17:10 | Magnetic Resonance Report ---
MRI OF THE BRAIN WITHOUT IV CONTRAST CLINICAL HISTORY: Migraine headache. Shaking spells. Recent Covid infection. COMPARISON STUDY: No priors. TECHNIQUE: MRI of the brain was performed utilizing various T1 and T2-weighted sequences in the axial , sagittal, and coronal planes. IV contrast was not administered for this examination. FINDINGS: Brain parenchyma: There is age-related involutional change noting moderate subcortical and periventri cular microangiopathic disease. There is no hemorrhage or mass effect. There is no restricted diffusi on to suggest acute ischemia. Ritchie-white matter differentiation is preserved. No extra-axial fluid co llection is seen. The cerebellar tonsils are normal in configuration. Mineralization is noted in the basal ganglia. Ventricles, sulci, and cisterns: Prominent secondary to involutional change. Pituitary and sella: Unremarkable. Intracranial vasculature: Normal flow voids are maintained at the skull base. Orbits: The bony orbits are grossly intact. Orbital contents are normal in appearance noting bilatera l ocular lens implants. Sinuses and mastoids: There is a 1.4 cm retention cyst in the left maxillary antrum. The paranasal si nuses are otherwise clear. The mastoid air cells are well pneumatized. Calvarium: Unremarkable. Cervical cord: Partially visualized cervical spinal cord is normal in morphology and signal intensity . IMPRESSION: No acute intracranial abnormality. ACT 112: Negative or not required by law. Electronically signed by: Zeeshan Weeks M.D. 06/21/2020 5:08 PM
[2020-06-21] MEDS ORDERED: dexAMETHasone 4 MG TAB PO ONE (19:00)
[2020-06-21] MEDS: ROSUVASTATIN CALCIUM 20 MG TAB PO SCH (19:59)
[2020-06-21] MEDS ORDERED: ENOXAPARIN INJ 40 MG/0.4 ML SYR SQ ONE (20:45)
--- NOTE | 2020-06-21 21:09 | Hospitalist Progress Note ---
Date of Service June 21, 2020 Assessment & Plan (1) Seizure-like activity: Daughter witnessed 3 discrete episodes of such. Very well could have been tremors/shakiness from severe hypoglycemia or actual seizure events from same. Cannot rule out seizure like activity in the setting of COVID infection and [employer]OCK[employer] effects from such. MRI brain ordered. EEG ordered. (2) Diabetes mellitus with hypoglycemia: a1c 7.1% daughter reports patient had been on additional meds beyond metformin and glimepiride - those additional meds were stopped sometime in the recent past. presenting severe hypoglycemia - suspect combination of anorexia in the setting of COVID illness along with sulfonylurea use. oral meds now on hold. hypoglycemia resolved. stop IV fluids. suspect BSGs will now become elevated with steroid use for COVID - see below. obtain DM education consult. (3) COVID-19: dx 06/06/20 upon admission to [facility]. Hospitalized 06/06/20 to 06/08/20, d/c to home. Readmitted to [facility] 06/15 and d/c again back to home on 06/17. Was sick with COVID symptoms several days prior to 06/06/20. Although cxr was negative at admission, she has ongoing cough along with b/l rales on exam c/w pneumonitis. I cannot find record of dexamethasone use during the above admissions nor from pharmacy records. Thus, start dexamethasone 6mg po daily x 10 days, first dose now. Albuterol prn. Consider adding low-dose aspirin for the next several weeks to prevent complications from COVID. can d/c airborne - 15-20 days out from start of illness. d/w infection quality control representative. (4) Metabolic encephalopathy: 2nd to hypoglycemia. Resolved. Mental status seems to be at baseline today. (5) HLD (hyperlipidemia): Continue fenofibrate 145 mg p.o. daily and rosuvastatin 40 mg p.o. every evening (6) Depression: Continue venlafaxine 150 mg p.o. daily in the a.m. (7) Muscle spasm: Continue cyclobenzaprine 10 mg p.o. 3 times daily as needed (8) Migraine headache: Continue rizatriptan as needed (9) Peripheral neuropathy: Continue gabapentin 300 mg p.o. 3 times daily Presumed diabetic polyneuropathy (10) Arthritis: Continue Celebrex 200 mg p.o. every morning. Hold piroxicam. Continue tramadol 50 mg p.o. every 6 hours as needed moderate pain. (11) DVT prophylaxis: lovenox daily daughter updated by phone today Admission and Anticipated Discharge Date Admission Date: June 20, 2020 Subjective Patient's daughter reports that patient had 3 "staring spells" in the 24 hours leading up to this admission. First episode was Sunday pm, then had 1 yesterday am and another yesterday afternoon. Arms/legs would shake, was altered during these spells, then would become lethargic after. Shaking spells lasted about 15 minutes each. Lethargy was 30-60 minutes or more after spell. Upon EMS arrival to her home yesterday her BSG was 34. Since early this am her BSGs have been wnl. Patient was hospitalized twice since 06/06 for COVID illness at [facility]. Patient reports no dexamethasone use upon discharge from either hospitalization. Med rec history also does not show steroids. She continues with cough - mainly dry, and has SMITH. No dyspnea at rest. Has been a diabetic "for a long time" and also reports a personal history of asthma. Review of Systems Constitutional: + fatigue and + anorexia; no fever, no chills and no body aches Ear, Nose, Mouth, Throat: denies loss of taste/smell Respiratory: no sputum production Cardiovascular: no chest pain Gastrointestinal: no abdominal pain and no diarrhea/loose stools Physical Exam Constitutional: + thin; no acute distress, not ill appearing and no altered mental status coughing ENMT: external ear and nose normal, oropharynx normal Respiratory: no respiratory distress Auscultation: + rales; no wheezes Cardiovascular: Rate/Rhythm: regular rhythm and + tachycardic Heart Sounds: normal S1 and normal S2; no murmur Vessels: posterior tibial pulses present and dorsalis pedis pulses present; no JVD Extremities: no edema Gastrointestinal (Abdomen): normal bowel sounds, soft, nontender, no hepatosplenomegaly Neurologic: moves all extremities and awake; no focal motor deficits and not confused Psychiatric: A+Ox3, euthymic affect Results & Data Results & Data ([facility]) Vital Signs (Past 12 Hours) Vital Signs Temp Pulse Pulse Pulse Resp BP BP 06/21/20 20:00 37 C 101 H 18 161/88 H 06/21/20 16:00 99 H 06/21/20 15:45 37.2 C 99 H 20 146/90 H 06/21/20 12:27 37.3 C 98 H 18 135/77 Pulse Ox 06/21/20 20:00 95 06/21/20 16:00 06/21/20 15:45 93 06/21/20 12:27 95 Laboratory Results Laboratory Results - last 24 hr 06/20/20 06/20/20 06/20/20 20:35 21:08 21:32 WBC RBC Hgb Hct MCV MCH MCHC RDW Std Deviation RDW Coeff of Rufus Plt Count MPV Immature Gran % (Auto) Neut % (Auto) Lymph % (Auto) Victoria % (Auto) Eos % (Auto) Baso % (Auto) Neut # (Auto) Lymph # (Auto) Victoria # (Auto) Eos # (Auto) Baso # (Auto) Immature Gran # (Auto) Sodium 142 Potassium 3.6 Chloride 110 H Carbon Dioxide 26 Anion Gap 6.0 BUN 15 Creatinine 1.14 Est Cr Clr Drug Dosing 36.8 Est GFR ( Amer) 56.8 Est GFR (Non-Af Amer) 49.0 BUN/Creatinine Ratio 13.4 Glucose 39 L* POC Glucose 321 H* Estimat Average Glucose Hemoglobin A1c Calcium 8.4 L Magnesium 2.1 Total Bilirubin 0.4 AST 34 ALT 36 Alkaline Phosphatase 39 L Troponin I < 0.015 Total Protein 6.1 L Albumin 3.6 Globulin 2.5 Albumin/Globulin Ratio 1.4 TSH 0.832 Urine Color Urine Appearance Urine pH Ur Specific Fork Urine Protein Urine Glucose (UA) Urine Ketones Urine Blood Urine Nitrite Urine Bilirubin Urine Urobilinogen Ur Leukocyte Esterase Urine WBC (Auto) Urine RBC (Auto) U Hyaline Cast (Auto) U Epithel Cells (Auto) Urine Bacteria (Auto) SARS-CoV-2 (PCR) POSITIVE A* Influenza Type A (PCR) Negative Influenza Type B (PCR) Negative RSV (RT-PCR) Negative 06/20/20 06/20/20 06/20/20 22:32 22:40 23:21 WBC RBC Hgb Hct MCV MCH MCHC RDW Std Deviation RDW Coeff of Rufus Plt Count MPV Immature Gran % (Auto) Neut % (Auto) Lymph % (Auto) Victoria % (Auto) Eos % (Auto) Baso % (Auto) Neut # (Auto) Lymph # (Auto) Victoria # (Auto) Eos # (Auto) Baso # (Auto) Immature Gran # (Auto) Sodium Potassium Chloride Carbon Dioxide Anion Gap BUN Creatinine Est Cr Clr Drug Dosing Est GFR ( Amer) Est GFR (Non-Af Amer) BUN/Creatinine Ratio Glucose POC Glucose 212 H 182 H Estimat Average Glucose Hemoglobin A1c Calcium Magnesium Total Bilirubin AST ALT Alkaline Phosphatase Troponin I Total Protein Albumin Globulin Albumin/Globulin Ratio TSH Urine Color Yellow Urine Appearance Clear Urine pH 6.5 Ur Specific Fork 1.006 Urine Protein Negative Urine Glucose (UA) 1+ H Urine Ketones Negative Urine Blood Negative Urine Nitrite Negative Urine Bilirubin Negative Urine Urobilinogen Negative Ur Leukocyte Esterase Trace H Urine WBC (Auto) 5-10 H Urine RBC (Auto) 0-4 U Hyaline Cast (Auto) 0 U Epithel Cells (Auto) >30 H Urine Bacteria (Auto) Negative SARS-CoV-2 (PCR) Influenza Type A (PCR) Influenza Type B (PCR) RSV (RT-PCR) 06/21/20 06/21/20 06/21/20 00:13 01:04 01:26 WBC RBC Hgb Hct MCV MCH MCHC RDW Std Deviation RDW Coeff of Rufus Plt Count MPV Immature Gran % (Auto) Neut % (Auto) Lymph % (Auto) Victoria % (Auto) Eos % (Auto) Baso % (Auto) Neut # (Auto) Lymph # (Auto) Victoria # (Auto) Eos # (Auto) Baso # (Auto) Immature Gran # (Auto) Sodium Potassium Chloride Carbon Dioxide Anion Gap BUN Creatinine Est Cr Clr Drug Dosing Est GFR ( Amer) Est GFR (Non-Af Amer) BUN/Creatinine Ratio Glucose POC Glucose 99 33 L* 171 H Estimat Average Glucose Hemoglobin A1c Calcium Magnesium Total Bilirubin AST ALT Alkaline Phosphatase Troponin I Total Protein Albumin Globulin Albumin/Globulin Ratio TSH Urine Color Urine Appearance Urine pH Ur Specific Fork Urine Protein Urine Glucose (UA) Urine Ketones Urine Blood Urine Nitrite Urine Bilirubin Urine Urobilinogen Ur Leukocyte Esterase Urine WBC (Auto) Urine RBC (Auto) U Hyaline Cast (Auto) U Epithel Cells (Auto) Urine Bacteria (Auto) SARS-CoV-2 (PCR) Influenza Type A (PCR) Influenza Type B (PCR) RSV (RT-PCR) 06/21/20 06/21/20 06/21/20 02:00 03:01 04:06 WBC RBC Hgb Hct MCV MCH MCHC RDW Std Deviation RDW Coeff of Rufus Plt Count MPV Immature Gran % (Auto) Neut % (Auto) Lymph % (Auto) Victoria % (Auto) Eos % (Auto) Baso % (Auto) Neut # (Auto) Lymph # (Auto) Victoria # (Auto) Eos # (Auto) Baso # (Auto) Immature Gran # (Auto) Sodium Potassium Chloride Carbon Dioxide Anion Gap BUN Creatinine Est Cr Clr Drug Dosing Est GFR ( Amer) Est GFR (Non-Af Amer) BUN/Creatinine Ratio Glucose POC Glucose 150 H 117 H 57 L* Estimat Average Glucose Hemoglobin A1c Calcium Magnesium Total Bilirubin AST ALT Alkaline Phosphatase Troponin I Total Protein Albumin Globulin Albumin/Globulin Ratio TSH Urine Color Urine Appearance Urine pH Ur Specific Fork Urine Protein Urine Glucose (UA) Urine Ketones Urine Blood Urine Nitrite Urine Bilirubin Urine Urobilinogen Ur Leukocyte Esterase Urine WBC (Auto) Urine RBC (Auto) U Hyaline Cast (Auto) U Epithel Cells (Auto) Urine Bacteria (Auto) SARS-CoV-2 (PCR) Influenza Type A (PCR) Influenza Type B (PCR) RSV (RT-PCR) 06/21/20 06/21/20 06/21/20 04:23 05:00 06:00 WBC RBC Hgb Hct MCV MCH MCHC RDW Std Deviation RDW Coeff of Rufus Plt Count MPV Immature Gran % (Auto) Neut % (Auto) Lymph % (Auto) Victoria % (Auto) Eos % (Auto) Baso % (Auto) Neut # (Auto) Lymph # (Auto) Victoria # (Auto) Eos # (Auto) Baso # (Auto) Immature Gran # (Auto) Sodium Potassium Chloride Carbon Dioxide Anion Gap BUN Creatinine Est Cr Clr Drug Dosing Est GFR ( Amer) Est GFR (Non-Af Amer) BUN/Creatinine Ratio Glucose POC Glucose 123 H 80 98 Estimat Average Glucose Hemoglobin A1c Calcium Magnesium Total Bilirubin AST ALT Alkaline Phosphatase Troponin I Total Protein Albumin Globulin Albumin/Globulin Ratio TSH Urine Color Urine Appearance Urine pH Ur Specific Fork Urine Protein Urine Glucose (UA) Urine Ketones Urine Blood Urine Nitrite Urine Bilirubin Urine Urobilinogen Ur Leukocyte Esterase Urine WBC (Auto) Urine RBC (Auto) U Hyaline Cast (Auto) U Epithel Cells (Auto) Urine Bacteria (Auto) SARS-CoV-2 (PCR) Influenza Type A (PCR) Influenza Type B (PCR) RSV (RT-PCR) 06/21/20 06/21/20 06/21/20 07:11 07:31 07:31 WBC 5.94 RBC 4.06 L Hgb 12.2 Hct 35.9 L MCV 88.4 MCH 30.0 MCHC 34.0 RDW Std Deviation 47.5 H RDW Coeff of Rufus 14.9 H Plt Count 317 MPV 9.9 Immature Gran % (Auto) 0.2 Neut % (Auto) 44.8 Lymph % (Auto) 43.1 Victoria % (Auto) 7.9 Eos % (Auto) 3.7 Baso % (Auto) 0.3 Neut # (Auto) 2.66 Lymph # (Auto) 2.56 Victoria # (Auto) 0.47 Eos # (Auto) 0.22 Baso # (Auto) 0.02 Immature Gran # (Auto) 0.01 Sodium 145 Potassium 3.8 Chloride 114 H Carbon Dioxide 27 Anion Gap 5.0 BUN 13 Creatinine 1.06 Est Cr Clr Drug Dosing 39.6 Est GFR ( Amer) 62.0 Est GFR (Non-Af Amer) 53.5 BUN/Creatinine Ratio 12.4 Glucose 113 H POC Glucose 116 H Estimat Average Glucose Hemoglobin A1c Calcium 8.7 Magnesium Total Bilirubin 0.4 AST 29 ALT 33 Alkaline Phosphatase 40 L Troponin I Total Protein 5.9 L Albumin 3.4 Globulin 2.5 Albumin/Globulin Ratio 1.4 TSH Urine Color Urine Appearance Urine pH Ur Specific Fork Urine Protein Urine Glucose (UA) Urine Ketones Urine Blood Urine Nitrite Urine Bilirubin Urine Urobilinogen Ur Leukocyte Esterase Urine WBC (Auto) Urine RBC (Auto) U Hyaline Cast (Auto) U Epithel Cells (Auto) Urine Bacteria (Auto) SARS-CoV-2 (PCR) Influenza Type A (PCR) Influenza Type B (PCR) RSV (RT-PCR) 06/21/20 06/21/20 06/21/20 07:31 08:10 09:30 WBC RBC Hgb Hct MCV MCH MCHC RDW Std Deviation RDW Coeff of Rufus Plt Count MPV Immature Gran % (Auto) Neut % (Auto) Lymph % (Auto) Victoria % (Auto) Eos % (Auto) Baso % (Auto) Neut # (Auto) Lymph # (Auto) Victoria # (Auto) Eos # (Auto) Baso # (Auto) Immature Gran # (Auto) Sodium Potassium Chloride Carbon Dioxide Anion Gap BUN Creatinine Est Cr Clr Drug Dosing Est GFR ( Amer) Est GFR (Non-Af Amer) BUN/Creatinine Ratio Glucose POC Glucose 122 H 106 H Estimat Average Glucose 157 Hemoglobin A1c 7.1 H Calcium Magnesium Total Bilirubin AST ALT Alkaline Phosphatase Troponin I Total Protein Albumin Globulin Albumin/Globulin Ratio TSH Urine Color Urine Appearance Urine pH Ur Specific Fork Urine Protein Urine Glucose (UA) Urine Ketones Urine Blood Urine Nitrite Urine Bilirubin Urine Urobilinogen Ur Leukocyte Esterase Urine WBC (Auto) Urine RBC (Auto) U Hyaline Cast (Auto) U Epithel Cells (Auto) Urine Bacteria (Auto) SARS-CoV-2 (PCR) Influenza Type A (PCR) Influenza Type B (PCR) RSV (RT-PCR) 06/21/20 06/21/20 06/21/20 10:24 11:32 12:33 WBC RBC Hgb Hct MCV MCH MCHC RDW Std Deviation RDW Coeff of Rufus Plt Count MPV Immature Gran % (Auto) Neut % (Auto) Lymph % (Auto) Victoria % (Auto) Eos % (Auto) Baso % (Auto) Neut # (Auto) Lymph # (Auto) Victoria # (Auto) Eos # (Auto) Baso # (Auto) Immature Gran # (Auto) Sodium Potassium Chloride Carbon Dioxide Anion Gap BUN Creatinine Est Cr Clr Drug Dosing Est GFR ( Amer) Est GFR (Non-Af Amer) BUN/Creatinine Ratio Glucose POC Glucose 110 H 105 H 102 H Estimat Average Glucose Hemoglobin A1c Calcium Magnesium Total Bilirubin AST ALT Alkaline Phosphatase Troponin I Total Protein Albumin Globulin Albumin/Globulin Ratio TSH Urine Color Urine Appearance Urine pH Ur Specific Fork Urine Protein Urine Glucose (UA) Urine Ketones Urine Blood Urine Nitrite Urine Bilirubin Urine Urobilinogen Ur Leukocyte Esterase Urine WBC (Auto) Urine RBC (Auto) U Hyaline Cast (Auto) U Epithel Cells (Auto) Urine Bacteria (Auto) SARS-CoV-2 (PCR) Influenza Type A (PCR) Influenza Type B (PCR) RSV (RT-PCR) 06/21/20 06/21/20 06/21/20 13:41 14:31 15:42 WBC RBC Hgb Hct MCV MCH MCHC RDW Std Deviation RDW Coeff of Rufus Plt Count MPV Immature Gran % (Auto) Neut % (Auto) Lymph % (Auto) Victoria % (Auto) Eos % (Auto) Baso % (Auto) Neut # (Auto) Lymph # (Auto) Victoria # (Auto) Eos # (Auto) Baso # (Auto) Immature Gran # (Auto) Sodium Potassium Chloride Carbon Dioxide Anion Gap BUN Creatinine Est Cr Clr Drug Dosing Est GFR ( Amer) Est GFR (Non-Af Amer) BUN/Creatinine Ratio Glucose POC Glucose 128 H 128 H 120 H Estimat Average Glucose Hemoglobin A1c Calcium Magnesium Total Bilirubin AST ALT Alkaline Phosphatase Troponin I Total Protein Albumin Globulin Albumin/Globulin Ratio TSH Urine Color Urine Appearance Urine pH Ur Specific Fork Urine Protein Urine Glucose (UA) Urine Ketones Urine Blood Urine Nitrite Urine Bilirubin Urine Urobilinogen Ur Leukocyte Esterase Urine WBC (Auto) Urine RBC (Auto) U Hyaline Cast (Auto) U Epithel Cells (Auto) Urine Bacteria (Auto) SARS-CoV-2 (PCR) Influenza Type A (PCR) Influenza Type B (PCR) RSV (RT-PCR) 06/21/20 06/21/20 16:22 20:48 WBC RBC Hgb Hct MCV MCH MCHC RDW Std Deviation RDW Coeff of Rufus Plt Count MPV Immature Gran % (Auto) Neut % (Auto) Lymph % (Auto) Victoria % (Auto) Eos % (Auto) Baso % (Auto) Neut # (Auto) Lymph # (Auto) Victoria # (Auto) Eos # (Auto) Baso # (Auto) Immature Gran # (Auto) Sodium Potassium Chloride Carbon Dioxide Anion Gap BUN Creatinine Est Cr Clr Drug Dosing Est GFR ( Amer) Est GFR (Non-Af Amer) BUN/Creatinine Ratio Glucose POC Glucose 127 H 172 H Estimat Average Glucose Hemoglobin A1c Calcium Magnesium Total Bilirubin AST ALT Alkaline Phosphatase Troponin I Total Protein Albumin Globulin Albumin/Globulin Ratio TSH Urine Color Urine Appearance Urine pH Ur Specific Fork Urine Protein Urine Glucose (UA) Urine Ketones Urine Blood Urine Nitrite Urine Bilirubin Urine Urobilinogen Ur Leukocyte Esterase Urine WBC (Auto) Urine RBC (Auto) U Hyaline Cast (Auto) U Epithel Cells (Auto) Urine Bacteria (Auto) SARS-CoV-2 (PCR) Influenza Type A (PCR) Influenza Type B (PCR) RSV (RT-PCR) PG Care Time/CCT Total # of Minutes Spent Total Time Spent with Patient: Total time spent is greater than 50% in coordination of care (as documented) at patient's floor/unit and/or counseling patient: Coding Level of Care Code 41004 Subseq Hosp Care Lvl 3 Diagnoses Seizure-like activity R56.9 Diabetes mellitus with hypoglycemia E11.649 COVID-19 U07.1 Metabolic encephalopathy G93.41 HLD (hyperlipidemia) E78.5 Depression F32.9 Muscle spasm M62.838 Migraine headache G43.909 Peripheral neuropathy G62.9 Arthritis M19.90 DVT prophylaxis Z29.9
[2020-06-22 06:11] LABS: Basophils # (auto) 0.03 K/uL (0-0.2); Basophils % (auto) 0.5 %; Eosinophils # (auto) 0.01 K/uL (0-0.5); Eosinophils % (auto) 0.2 %; Hematocrit (blood only) 41.9 % (37-47); Hemoglobin 14.7 g/dL (12.0-16.0); Immature Granulocytes # (auto) 0.01 K/uL (0.00-0.02); Immature Granulocytes % (auto) 0.2 %; Lymphocytes # (auto) 0.92 K/uL (1.2-3.4); Lymphocytes % (auto) 16.6 %; Mean Corpuscular Hemoglobin 30.9 pg (25-34); Mean Corpuscular Hgb Conc 35.1 g/dL (32-36); Mean Corpuscular Volume 88.2 fL (80-100); Mean Platelet Volume 10.2 fL (7.4-10.4); Monocytes # (auto) 0.06 K/uL (0.11-0.59); Monocytes % (auto) 1.1 %; Neutrophils % (auto) 81.4 %; Platelet Count 316 K/uL (130-400); RDW Coefficient of Variation 14.5 % (11.5-14.5); RDW Standard Deviation 46.3 fL (36.4-46.3); Red Blood Count 4.75 M/uL (4.2-5.4); White Blood Count 5.53 K/uL (4.8-10.8)
[2020-06-22 06:17] LABS: D Dimer 350 ug/L FEU (0-500)
[2020-06-22 06:41] LABS: BUN Creatinine Ratio 17.1 (10-20); Calcium 9.3 mg/dl (8.5-10.1); Creatinine Clr Calc Pharmacy 38.2 ml/min; Est GFR (African American) 59.3; Est GFR (Non-African American) 51.2; Potassium 4.7 mmol/L (3.5-5.1)
[2020-06-22 06:43] LABS: Albumin Globulin Ratio 1.1 (0.9-2); Bilirubin,Total 0.6 mg/dl (0.2-1); Globulin 3.7 gm/dl (2.5-4.0); Total Protein 7.7 gm/dl (6.4-8.2)
[2020-06-22] MEDS: TRICOR~ORDER AWAITING ACTION SCH ×2 (07:56→15:59)
[2020-06-22] MEDS ORDERED: dexAMETHasone 1 MG TAB PO SCH (09:00)
[2020-06-22] MEDS ORDERED: INSULIN GLARGINE SOLOSTAR 100 UNITS/ML 3 ML PEN SC SCH (09:00)
[2020-06-22] MEDS: VENLAFAXINE HCL XR 150 MG CAPXR PO SCH (09:08)
[2020-06-22] MEDS: MAGNESIUM OXIDE 400 MG TAB PO SCH ×2 (09:08→19:44)
[2020-06-22] MEDS: CHOLECALCIFEROL 1,000 UNITS 25 MCG TAB PO SCH (09:08)
[2020-06-22] MEDS: CeleBREX 200 MG CAP PO SCH (09:08)
[2020-06-22] MEDS: ZINC SULFATE 220 MG CAPSULE PO SCH (09:09)
[2020-06-22] MEDS: LINACLOTIDE 145 MCG CAPSULE PO SCH (09:09)
[2020-06-22] MEDS: GABAPENTIN 300 MG CAP PO SCH ×3 (09:09→19:44)
[2020-06-22] MEDS: INSULIN ASPART 100 UNITS/ML 3 ML PEN SC SCH ×4 (09:11→21:34)
--- NOTE | 2020-06-22 09:18 | Electroencephalogram ---
EEG Procedure Note Date of Service June 22, 2020 Start / End Times Start Time: 6:18 AM End Time: 6:38 AM Referring Physician Edu Medina History Seizure-like episode Home Medication List Medication Instructions Recorded Confirmed Type albuterol sulfate 2 puff INHALATION DIRECTED PRN 06/20/20 06/20/20 History celecoxib 200 mg PO QAM 06/20/20 06/20/20 History cholecalciferol (vitamin D3) 2,000 unit PO QAM 06/20/20 06/20/20 History [Vitamin D3] cyclobenzaprine 10 mg PO TID PRN 06/20/20 06/20/20 History fenofibrate micronized 134 mg PO QAM 06/20/20 06/20/20 History fluticasone propionate 1 spray INTRANASAL QAM 06/20/20 06/20/20 History gabapentin 300 mg PO TID 06/20/20 06/20/20 History glimepiride 4 mg PO BID 06/20/20 06/20/20 History linaclotide [Linzess] 145 mcg PO QAM 06/20/20 06/20/20 History magnesium oxide 400 mg PO BID 06/20/20 06/20/20 History metformin 500 mg PO BID 06/20/20 06/20/20 History piroxicam 20 mg PO QAM 06/20/20 06/20/20 History rizatriptan 10 mg PO DIRECTED PRN 06/20/20 06/20/20 History rosuvastatin 40 mg PO PM 06/20/20 06/20/20 History tramadol 50 mg PO Q6H PRN 06/20/20 06/20/20 History venlafaxine 150 mg PO QAM 06/20/20 06/20/20 History Inpatient Medication List Celecoxib (Celebrex 200 Mg Cap) 200 mg PO QAM MARTINA Stop: 07/21/20 08:59 Last Admin: 06/22/20 09:08 Dose: 200 mg Documented by: [id number] Admin: 06/21/20 08:13 Dose: 200 mg Documented by: [id number] Dextrose (Dextrose 50% 50 Ml Syringe) 25 - 50 ml IV UD PRN; Protocol PRN Reason: Hypoglycemia Protocol Stop: 07/21/20 01:05 Last Admin: 06/21/20 04:10 Dose: 25 ml Documented by: [id number] Admin: 06/21/20 01:12 Dose: 50 ml Documented by: [id number] Gabapentin (Gabapentin 300 Mg Cap) 300 mg PO TID [facility] Stop: 07/21/20 08:59 Last Admin: 06/22/20 09:09 Dose: 300 mg Documented by: [id number] Admin: 06/21/20 19:59 Dose: 300 mg Documented by: [id number] Admin: 06/21/20 13:56 Dose: 300 mg Documented by: [id number] Admin: 06/21/20 08:13 Dose: 300 mg Documented by: [id number] Insulin Aspart (Insulin Aspart 100 Units/Ml 3 Ml Pen) 0 units SC ACHS MARTINA Stop: 07/21/20 07:29 Last Admin: 06/21/20 20:57 Dose: Not Given Documented by: [id number] Admin: 06/21/20 17:19 Dose: Not Given Documented by: [id number] Admin: 06/21/20 12:43 Dose: Not Given Documented by: [id number] Admin: 06/21/20 08:18 Dose: Not Given Documented by: [id number] Linaclotide (Linaclotide 145 Mcg Capsule) 145 mcg PO QAM [facility] Stop: 07/21/20 08:59 Last Admin: 06/22/20 09:09 Dose: 145 mcg Documented by: [id number] Admin: 06/21/20 08:14 Dose: 145 mcg Documented by: [id number] Magnesium Oxide (Magnesium Oxide 400 Mg Tab) 400 mg PO BID [facility] Stop: 07/21/20 08:59 Last Admin: 06/22/20 09:08 Dose: 400 mg Documented by: [id number] Admin: 06/21/20 19:59 Dose: 400 mg Documented by: [id number] Admin: 06/21/20 08:13 Dose: 400 mg Documented by: [id number] Miscellaneous (Tricor~Order Awaiting Action) 1 ea N/A QS [facility] Stop: 07/21/20 07:59 Last Admin: 06/22/20 07:56 Dose: Not Given Documented by: [id number] Admin: 06/21/20 21:53 Dose: Not Given Documented by: [id number] Admin: 06/21/20 16:35 Dose: Not Given Documented by: [id number] Admin: 06/21/20 08:12 Dose: Not Given Documented by: [id number] Rosuvastatin Calcium (Rosuvastatin Calcium 20 Mg Tab) 40 mg PO PM MARTINA Stop: 07/21/20 20:59 Last Admin: 06/21/20 19:59 Dose: 40 mg Documented by: [id number] Venlafaxine HCl (Venlafaxine Hcl Xr 150 Mg Capxr) 150 mg PO [facility] Stop: 07/21/20 08:59 Last Admin: 06/22/20 09:08 Dose: 150 mg Documented by: [id number] Admin: 06/21/20 08:13 Dose: 150 mg Documented by: [id number] Vitamin D (Cholecalciferol 1,000 Units 25 Mcg Tab) 2,000 units PO [facility] Stop: 07/21/20 08:59 Last Admin: 06/22/20 09:08 Dose: 2,000 units Documented by: [id number] Admin: 06/21/20 08:13 Dose: 2,000 units Documented by: [id number] Zinc Sulfate (Zinc Sulfate 220 Mg Capsule) 220 mg PO [facility] Stop: 07/21/20 08:59 Last Admin: 06/22/20 09:09 Dose: 220 mg Documented by: [id number] Admin: 06/21/20 08:13 Dose: 220 mg Documented by: [id number] Discontinued Medications Dexamethasone (Dexamethasone 4 Mg Tab) 6 mg PO NOW ONE Stop: 06/21/20 19:01 Last Admin: 06/21/20 19:55 Dose: 6 mg Documented by: [id number] Dextrose (Dextrose 50% 50 Ml Syringe) Confirm Administered Dose 50 ml IV .STK- MED ONE Stop: 06/20/20 21:04 Last Admin: 06/20/20 21:06 Dose: 50 ml Documented by: [id number] Dextrose (Dextrose 50% 50 Ml Syringe) 50 ml IV NOW STA Stop: 06/20/20 21:05 Last Admin: 06/20/20 21:07 Dose: Not Given Documented by: [id number] Dextrose (Dextrose 50% 50 Ml Syringe) Confirm Administered Dose 50 ml IV .STK- MED ONE Stop: 06/21/20 01:09 Last Admin: 06/21/20 01:13 Dose: Not Given Documented by: [id number] Enoxaparin Sodium (Enoxaparin Inj 40 Mg/0.4 Ml Syr) 40 mg SQ NOW ONE Stop: 06/21/20 20:46 Last Admin: 06/21/20 21:23 Dose: 40 mg Documented by: [id number] Sodium Chloride (Nss 1000ml) 1,000 mls @ 999 mls/hr IV .Q1H1M MARTINA Stop: 06/20/20 21:30 Last Infusion: 06/20/20 21:20 Dose: 0 mls/hr Documented by: [id number] Infusion: 06/20/20 21:08 Dose: 0 mls/hr Documented by: [id number] Admin: 06/20/20 20:32 Dose: 999 mls/hr Documented by: [id number] Dextrose/Sodium Chloride (D5w And 1/2nss) 1,000 mls @ 250 mls/hr IV .Q4H [facility]INA Stop: 07/20/20 21:14 Last Infusion: 06/21/20 01:33 Dose: 0 mls/hr Documented by: [id number] Infusion: 06/20/20 21:44 Dose: 0 mls/hr Documented by: [id number] Admin: 06/20/20 21:16 Dose: 250 mls/hr Documented by: [id number] Potassium Chloride/Dextrose/Sod Cl (D5nss + 20meq Kcl) 20 meq in 1,000 mls @ 100 mls/hr IV .Q10H MARTINA Stop: 07/21/20 01:05 Last Infusion: 06/21/20 19:40 Dose: 0 mls/hr Documented by: [id number] Admin: 06/21/20 10:22 Dose: 100 mls/hr Documented by: [id number] Infusion: 06/21/20 10:22 Dose: 100 mls/hr Documented by: [id number] Admin: 06/21/20 01:23 Dose: 100 mls/hr Documented by: [id number] Ondansetron HCl (Ondansetron Inj 2 Mg/Ml 2 Ml Vial) 4 mg IV NOW STA Stop: 06/20/20 20:17 Last Admin: 06/20/20 20:29 Dose: 4 mg Documented by: [id number] Description This is a 21 electrode EEG with a single channel dedicated to limited EKG. The electrodes were placed in accordance with the International 10-20 system. There is a posterior dominant rhythm of 10 Hz which is symmetrically distributed and attenuates with eye opening. There is a normal anterior to posterior organization. Photic stimulation is unremarkable. Hyperventilation was not performed. There is a symmetric frontal beta rhythm. There is admixed generalized polymorphic theta activity. No focal or lateralized slowing. No changes suggestive of sleep. Interpretation Normal-appearing awake/drowsy EEG. A normal EEG does not completely exclude a diagnosis of epilepsy. Further clinical correlation may be needed. [facility] EEG Procedure Codes Indication for Procedure (1) Seizure-like activity: Neurology Neurology: 29769 EEG include record awake & drowsy
--- NOTE | 2020-06-22 15:26 | Hospitalist Progress Note ---
Date of Service June 22, 2020 Assessment & Plan (1) Seizure-like activity: Daughter witnessed 3 discrete episodes of such before admission. Very well could have been tremors/shakiness from severe hypoglycemia or actual seizure events from same. 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 Again when EMS arrived to pt's house BSG was 34 and daughter had just witnessed one of the spells. Thus, likely hypoglycemic-related. (2) Diabetes mellitus with hypoglycemia: a1c 7.1% presenting severe hypoglycemia - suspect combination of anorexia in the setting of COVID illness along with sulfonylurea use. oral meds now on hold. hypoglycemia resolved. now hyperglycemic from steroids. patient's body habitus and lability suggest T1DM. safest option for her post-d/c may be basal-bolus insulin. will continue to monitor. DM education consult appreciated. (3) COVID-19: dx 06/06/20 upon admission to [facility]. Hospitalized 06/06/20 to 06/08/20, d/c to home. Readmitted to [facility] 06/15 and d/c again back to home on 06/17. Was sick with COVID symptoms several days prior to 06/06/20. Although cxr was negative at admission, she has ongoing cough along with b/l rales on exam c/w pneumonitis. I cannot find record of dexamethasone use during the above admissions nor from pharmacy records. Thus, started dexamethasone 6mg po daily x 10 days yesterday. This was lowered to 4mg today due to severe hyperglycemia - continue with 4mg dose. Albuterol prn. Consider adding low-dose aspirin for the next several weeks to prevent complications from COVID. can d/c airborne - 15-20 days out from start of illness. 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 (4) Metabolic encephalopathy: 2nd to hypoglycemia. Resolved. (5) HLD (hyperlipidemia): Continue fenofibrate 145 mg p.o. daily and rosuvastatin 40 mg p.o. every evening (6) Depression: Continue venlafaxine 150 mg p.o. daily in the a.m. (7) Muscle spasm: Continue cyclobenzaprine 10 mg p.o. 3 times daily as needed (8) Migraine headache: Continue rizatriptan as needed (9) Peripheral neuropathy: Continue gabapentin 300 mg p.o. 3 times daily Presumed diabetic polyneuropathy (10) Arthritis: Continue Celebrex 200 mg p.o. every morning. Hold piroxicam. Continue tramadol 50 mg p.o. every 6 hours as needed moderate pain. (11) DVT prophylaxis: lovenox daily daughter updated by phone 06/21 and 06/22 if BSGs are reasonable tomorrow possible d/c then Admission and Anticipated Discharge Date Admission Date: June 20, 2020 Subjective pt's cough much improved tachycardic on monitoring but patient w/o symptoms or palpitations appetite better today no further low sugars - now high due to steroids worked with PT/OT - did well, home PT/OT advised overall she is progressing Review of Systems Constitutional: + fatigue; no fever, no chills and no anorexia Respiratory: + cough; no sputum production Cardiovascular: no chest pain Gastrointestinal: no abdominal pain, no nausea, no vomiting and no diarrhea/loose stools Physical Exam Constitutional: + thin; no acute distress, not ill appearing and no altered mental status ENMT: external ear and nose normal, oropharynx normal Respiratory: no respiratory distress Auscultation: + rales (Minimum today); no wheezes Cardiovascular: Rate/Rhythm: regular rhythm and + tachycardic Heart Sounds: normal S1 and normal S2; no murmur Vessels: posterior tibial pulses present and dorsalis pedis pulses present; no JVD Extremities: no edema Gastrointestinal (Abdomen): normal bowel sounds, soft, nontender, no hepatosplenomegaly Neurologic: moves all extremities; no focal motor deficits Psychiatric: A+Ox3, euthymic affect Results & Data Results & Data ([facility]) Vital Signs (Past 12 Hours) Vital Signs Temp Pulse Pulse Resp BP BP Pulse Ox 06/22/20 12:58 98 06/22/20 12:04 36.9 C 120 H 20 128/68 97 06/22/20 07:37 36.6 C 103 H 16 147/87 H 95 06/22/20 07:00 102 H 06/22/20 04:00 36.7 C 104 H 20 151/95 H 93 Laboratory Results Laboratory Results - last 24 hr 06/21/20 06/21/20 06/21/20 15:42 16:22 20:48 WBC RBC Hgb Hct MCV MCH MCHC RDW Std Deviation RDW Coeff of Rufus Plt Count MPV Immature Gran % (Auto) Neut % (Auto) Lymph % (Auto) [place] % (Auto) Eos % (Auto) Baso % (Auto) Neut # (Auto) Lymph # (Auto) [place] # (Auto) Eos # (Auto) Baso # (Auto) Immature Gran # (Auto) D-Dimer Sodium Potassium Chloride Carbon Dioxide Anion Gap BUN Creatinine Est Cr Clr Drug Dosing Est GFR ( Amer) Est GFR (Non-Af Amer) BUN/Creatinine Ratio Glucose POC Glucose 120 H 127 H 172 H Calcium Total Bilirubin AST ALT Alkaline Phosphatase Total Protein Albumin Globulin Albumin/Globulin Ratio 06/22/20 06/22/20 06/22/20 03:20 05:51 05:51 WBC 5.53 RBC 4.75 Hgb 14.7 Hct 41.9 MCV 88.2 MCH 30.9 MCHC 35.1 RDW Std Deviation 46.3 RDW Coeff of Rufus 14.5 Plt Count 316 MPV 10.2 Immature Gran % (Auto) 0.2 Neut % (Auto) 81.4 Lymph % (Auto) 16.6 [place] % (Auto) 1.1 Eos % (Auto) 0.2 Baso % (Auto) 0.5 Neut # (Auto) 4.50 Lymph # (Auto) 0.92 L [place] # (Auto) 0.06 L Eos # (Auto) 0.01 Baso # (Auto) 0.03 Immature Gran # (Auto) 0.01 D-Dimer Sodium 138 Potassium 4.7 D Chloride 110 H Carbon Dioxide 26 Anion Gap 2.0 L BUN 19 H Creatinine 1.10 Est Cr Clr Drug Dosing 38.2 Est GFR ( Amer) 59.3 Est GFR (Non-Af Amer) 51.2 BUN/Creatinine Ratio 17.1 Glucose 267 H POC Glucose 235 H Calcium 9.3 Total Bilirubin 0.6 AST 20 ALT 36 Alkaline Phosphatase 59 Total Protein 7.7 D Albumin 4.0 Globulin 3.7 Albumin/Globulin Ratio 1.1 06/22/20 06/22/20 06/22/20 05:51 07:33 11:28 WBC RBC Hgb Hct MCV MCH MCHC RDW Std Deviation RDW Coeff of Rufus Plt Count MPV Immature Gran % (Auto) Neut % (Auto) Lymph % (Auto) [place] % (Auto) Eos % (Auto) Baso % (Auto) Neut # (Auto) Lymph # (Auto) [place] # (Auto) Eos # (Auto) Baso # (Auto) Immature Gran # (Auto) D-Dimer 350 Sodium Potassium Chloride Carbon Dioxide Anion Gap BUN Creatinine Est Cr Clr Drug Dosing Est GFR ( Amer) Est GFR (Non-Af Amer) BUN/Creatinine Ratio Glucose POC Glucose 233 H 344 H* Calcium Total Bilirubin AST ALT Alkaline Phosphatase Total Protein Albumin Globulin Albumin/Globulin Ratio 06/22/20 11:29 WBC RBC Hgb Hct MCV MCH MCHC RDW Std Deviation RDW Coeff of Rufus Plt Count MPV Immature Gran % (Auto) Neut % (Auto) Lymph % (Auto) [place] % (Auto) Eos % (Auto) Baso % (Auto) Neut # (Auto) Lymph # (Auto) [place] # (Auto) Eos # (Auto) Baso # (Auto) Immature Gran # (Auto) D-Dimer Sodium Potassium Chloride Carbon Dioxide Anion Gap BUN Creatinine Est Cr Clr Drug Dosing Est GFR ( Amer) Est GFR (Non-Af Amer) BUN/Creatinine Ratio Glucose POC Glucose 368 H* Calcium Total Bilirubin AST ALT Alkaline Phosphatase Total Protein Albumin Globulin Albumin/Globulin Ratio PG Care Time/CCT Total # of Minutes Spent Total Time Spent with Patient: Total time spent is greater than 50% in coordination of care (as documented) at patient's floor/unit and/or counseling patient: Coding Level of Care Code 82961 Subseq Hosp Care Lvl 3 Diagnoses Seizure-like activity R56.9 Diabetes mellitus with hypoglycemia E11.649 COVID-19 U07.1 Metabolic encephalopathy G93.41 HLD (hyperlipidemia) E78.5 Depression F32.9 Muscle spasm M62.838 Migraine headache G43.909 Peripheral neuropathy G62.9 Arthritis M19.90 DVT prophylaxis Z29.9
[2020-06-22] MEDS: ROSUVASTATIN CALCIUM 20 MG TAB PO SCH (19:44)
[2020-06-22] MEDS: ENOXAPARIN INJ 40 MG/0.4 ML SYR SQ SCH (19:44)
[2020-06-22] MEDS ORDERED: PHARMACY GLYCEMIC MGMT CONSULT PRN (20:41)
[2020-06-22] MEDS ORDERED: INSULIN HUMAN REGULAR PER UNIT 5 UNITS in SYRINGE 4.95 ML IV ONE (21:15)
[2020-06-22] MEDS: INSULIN GLARGINE SOLOSTAR 100 UNITS/ML 3 ML PEN SC SCH (21:35)
[2020-06-23] MEDS: TRICOR~ORDER AWAITING ACTION SCH ×3 (00:04→17:10)
[2020-06-23] MEDS: INSULIN ASPART 100 UNITS/ML 3 ML PEN SC SCH ×6 (04:19→21:06)
[2020-06-23 08:06] LABS: Est GFR (African American) 62.8; Est GFR (Non-African American) 54.1; Potassium 4.2 mmol/L (3.5-5.1)
[2020-06-23] MEDS: VENLAFAXINE HCL XR 150 MG CAPXR PO SCH (08:08)
[2020-06-23] MEDS: GABAPENTIN 300 MG CAP PO SCH ×3 (08:08→21:09)
[2020-06-23] MEDS: CHOLECALCIFEROL 1,000 UNITS 25 MCG TAB PO SCH (08:08)
[2020-06-23] MEDS: LINACLOTIDE 145 MCG CAPSULE PO SCH (08:08)
[2020-06-23] MEDS: CeleBREX 200 MG CAP PO SCH (08:08)
[2020-06-23] MEDS: ZINC SULFATE 220 MG CAPSULE PO SCH (08:08)
[2020-06-23] MEDS: MAGNESIUM OXIDE 400 MG TAB PO SCH ×2 (08:08→21:08)
[2020-06-23] MEDS ORDERED: dexAMETHasone 4 MG TAB PO SCH (09:00)
[2020-06-23] MEDS: INSULIN GLARGINE SOLOSTAR 100 UNITS/ML 3 ML PEN SC SCH (09:18)
[2020-06-23] MEDS ORDERED: INSULIN GLARGINE SOLOSTAR 100 UNITS/ML 3 ML PEN SC ONE (12:15)
--- NOTE | 2020-06-23 13:16 | Hospitalist Progress Note ---
Date of Service June 23, 2020 Assessment & Plan (1) Seizure-like activity: Daughter witnessed 3 discrete episodes of such before admission. Very well could have been tremors/shakiness from severe hypoglycemia or actual seizure events from same. 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 Again when EMS arrived to pt's house BSG was 34 and daughter had just witnessed one of the spells. Thus, likely hypoglycemic-related. (2) Diabetes mellitus with hypoglycemia: a1c 7.1% presenting severe hypoglycemia - suspect combination of anorexia in the setting of COVID illness along with sulfonylurea use. Sulfonylurea has been discontinued. Lantus dosage has been down titrated. Restart Metformin. Hypoglycemia resolve. DM education consult appreciated. (3) COVID-19: dx 06/06/20 upon admission to [facility]. Hospitalized 06/06/20 to 06/08/20, d/c to home. Readmitted to [facility] 06/15 and d/c again back to home on 06/17. Was sick with COVID symptoms several days prior to 06/06/20. Now asymptomatic. Dexamethasone discontinued. On room air. (4) Metabolic encephalopathy: 2nd to hypoglycemia. Resolved. (5) HLD (hyperlipidemia): Continue fenofibrate 145 mg p.o. daily and rosuvastatin 40 mg p.o. every evening (6) Depression: Continue venlafaxine 150 mg p.o. daily in the a.m. (7) Muscle spasm: Continue cyclobenzaprine 10 mg p.o. 3 times daily as needed (8) Migraine headache: Continue rizatriptan as needed (9) Peripheral neuropathy: Continue gabapentin 300 mg p.o. 3 times daily Presumed diabetic polyneuropathy (10) Arthritis: Continue Celebrex 200 mg p.o. every morning. Hold piroxicam. Continue tramadol 50 mg p.o. every 6 hours as needed moderate pain. (11) DVT prophylaxis: lovenox daily Dispo: Probable discharge to home tomorrow, June 24 Admission and Anticipated Discharge Date Admission Date: June 20, 2020 Subjective Alert and oriented. Diabetic teaching informs me that the patient takes Lantus 80 units daily at bedtime. This has been down titrated this admission. Sulfony lurea has been discontinued. Metformin will be restarted. Decadron discontinued. Original Covid diagnosis June 06. If she remains stable, she will go home tomorrow, June 24 Review of Systems Review of Systems: All systems reviewed & are unremarkable except as noted in HPI & below Physical Exam Constitutional: WD/WN, vitals as above Eyes: PERRL, conjunctivae normal, anicteric sclerae ENMT: external ear and nose normal, oropharynx normal Neck: trachea midline, no thyromegaly Respiratory: normal respiratory effort, lungs clear to auscultation Cardiovascular: Rate/Rhythm: regular rate and regular rhythm Gastrointestinal (Abdomen): normal bowel sounds, soft, nontender, no hepatosplenomegaly Musculoskeletal: no cyanosis or clubbing, extremities motor strength 5/5 Skin: no rashes, warm and dry Neurologic: CN's II-XI intact bilaterally and moves all extremities Results & Data Results & Data ([facility] [place]) Vital Signs (Past 12 Hours) Vital Signs Temp Pulse Pulse Resp BP BP Pulse Ox 06/23/20 11:15 37.1 C 96 H 18 151/92 H 98 06/23/20 07:55 36.9 C 76 18 141/84 H 94 06/23/20 07:30 67 06/23/20 04:00 36.6 C 77 18 134/74 94 Laboratory Results 06/22/20 05:51 06/23/20 06:43 PG Care Time/CCT Total # of Minutes Spent Total Time Spent with Patient: Total time spent is greater than 50% in human resources project coordinator rdination of care (as documented) at patient's floor/unit and/or counseling patient: Coding Level of Care Code 42591 Subseq Hosp Care Lvl 3 Diagnoses Seizure-like activity R56.9 Diabetes mellitus with hypoglycemia E11.649 COVID-19 U07.1 Metabolic encephalopathy G93.41 HLD (hyperlipidemia) E78.5 Depression F32.9 Muscle spasm M62.838 Migraine headache G43.909 Peripheral neuropathy G62.9 Arthritis M19.90 DVT prophylaxis Z29.9
--- NOTE | 2020-06-23 15:08 | Pharmacy Report ---
Pharmacy Glycemic Short Note 2 - Date of Service June 23, 2020 - Glycemic Short BSG Results (Last 24 hours): 06/22/20 06/22/20 06/22/20 16:41 16:45 20:24 Glucose POC Glucose 404 H* 411 H* 426 H* 06/22/20 06/22/20 06/23/20 20:26 23:56 03:43 Glucose POC Glucose 396 H* 252 H 177 H 06/23/20 06/23/20 06/23/20 06:43 07:52 11:26 Glucose 150 H POC Glucose 141 H 339 H* 06/23/20 06/23/20 11:27 11:27 Glucose POC Glucose 258 H 295 H OUTPATIENT ANTIDIABETIC REGIMEN: * metformin, glimepiride ASSESSMENT: * 69 year old admitted with possible seizure activity, possibly related from severe hypoglycemia. Also with COVID infection. * Patient received total of 52 units of insulin yesterday, of which 20 units were basal insulin * Fasting BSG 141 mg/dL - increase to basal this AM to help with steroid coverage, also tighten CF/CR * Add scale for basal at HS if still elevated PLAN FOR INPATIENT GLYCEMIC CONTROL: * Hold outpatient oral diabetes medications * Basal insulin * Lantus 15 units Qam * Lantus 0-10 units Qpm * Bolus insulin * NovoLog per scale ACHS or Q6hrs while NPO * Goal Range: Low 110 mg/dL - High 140 mg/dL * Correction Factor: 30 mg/dL/unit * Nutritional / Prandial insulin per carb ratio of 1 unit per 8 grams CHO consumed PLAN FOR DISCHARGE: * tbd
[2020-06-23] MEDS ORDERED: INSULIN HUMAN REGULAR PER UNIT 5 UNITS in SYRINGE 4.95 ML IV ONE ×2 (15:15→21:15)
[2020-06-23] MEDS: metFORMIN HCL 500 MG TAB PO SCH (17:29)
--- NOTE | 2020-06-23 19:00 | OB/GYN Consultation ---
Date of Consultation June 23, 2020 Assessment & Plan (1) H/O cold sores: (2) Herpetic ulcer of vulva: History and lesion appearance classic for prodromal symptoms followed by onset of genital HSV lesion. Would recommend valtrex 500mg PO BID orally x5 days, and can use barrier ointment to prevent painful sticking of the lesion to diapers if patient prefers. Lesion HPV culture not indicated unless it doesn't respond to treatment, given poor sensitivity of the test and high pretest proba bility of correct diagnosis. Serum tests for HSV1/HSV2 not expected to be helpful given known oral HSV lesions in the past, which can be caused by either or both viral strains. Will sign off of patient care unless further needs are expressed by primary team. History of Present Illness Reason for Consultation: Left Labial Lesion Requesting Physician: Davy Wyman MD Attending Physician: Talia Comer MD FACOG History of Present Illness 69yo admitted to medicine service for acute hypoglycemia, recent COVID illness and multiple medical comorbidities. She has been here for 2 days and nursing staff noted today that there is a lesion on the left labium majus, for which INSTRUCTIONAL DESIGNER consultation was requested. Patient notes that she developed tingling and itching at the site of the lesion several days ago, then a red spot developed, and in the last day or so it has ulcerated and become very painful, sticking to her diaper at times. She denies ever having a lesion like this before on her bottom, but notes that she does have a history of cold sores on her mouth that feel, look and progress like this. She "did not realize you could get cold sores on your bottom." She has not been sexually active since 2005 when she from her ex-, but has been sexually active with men in this lifetime and cannot rule out having been infected with genital herpes at some point. She has been four times, with three vaginal births and one miscarriage. She has also not had gynecologic care in "can't remember how long," but does know that she had a complete hysterectomy in the past for heavy menses, and believes her ovaries were removed as well. Allergies Allergy/AdvReac Type Severity Reaction Status Date / Time codeine Allergy Unknown Itchiness Verified 06/20/20 20:52 erythromycin base Allergy Unknown Itchiness Verified 06/20/20 20:52 Penicillins Allergy Unknown Itchiness Verified 06/20/20 20:52 propoxyphene Allergy Unknown UNKNOWN Verified 06/20/20 20:52 sumatriptan Allergy Unknown Unknown Verified 06/20/20 20:52 adhesive tape AdvReac Mild "Rips skin Unverified 06/20/20 20:52 off with it" Home Medications Medication Instructions Recorded Confirmed Type albuterol sulfate 2 puff INHALATION DIRECTED PRN 06/20/20 06/20/20 History celecoxib 200 mg PO QAM 06/20/20 06/20/20 History cholecalciferol (vitamin D3) 2,000 unit PO QAM 06/20/20 06/20/20 History [Vitamin D3] cyclobenzaprine 10 mg PO TID PRN 06/20/20 06/20/20 History fenofibrate micronized 134 mg PO QAM 06/20/20 06/20/20 History fluticasone propionate 1 spray INTRANASAL QAM 06/20/20 06/20/20 History gabapentin 300 mg PO TID 06/20/20 06/20/20 History glimepiride 4 mg PO BID 06/20/20 06/20/20 History linaclotide [Linzess] 145 mcg PO QAM 06/20/20 06/20/20 History magnesium oxide 400 mg PO BID 06/20/20 06/20/20 History metformin 500 mg PO BID 06/20/20 06/20/20 History piroxicam 20 mg PO QAM 06/20/20 06/20/20 History rizatriptan 10 mg PO DIRECTED PRN 06/20/20 06/20/20 History rosuvastatin 40 mg PO PM 06/20/20 06/20/20 History tramadol 50 mg PO Q6H PRN 06/20/20 06/20/20 History venlafaxine 150 mg PO QAM 06/20/20 06/20/20 History insulin glargine U-300 conc 80 unit SUBCUT DAILY 06/23/20 06/23/20 History [Toujeo SoloStar U-300 Insulin] liraglutide [Victoza 3-Rush] 1.8 mg SUBCUT DAILY 06/23/20 06/23/20 History Patient History Medical History (Updated 06/23/20 @ 18:54 by Talia Comer MD) Arthritis Depression Diabetes GERD (gastroesophageal reflux disease) HLD (hyperlipidemia) Migraine headache Muscle spasm Peripheral neuropathy Social History Smoking Status: Never smoker Hx Alcohol Use: No Hx Substance Use: No Preferred Language: [place] Islander Communication Ability: Effective Montessori Teacher Required: No Beliefs That Will Affect Care: None Current Living Situation: Alone Other Information That Helps Us Care for You: No Feels Safe at Home: Yes Safety Concerns: Feels Safe At This Time Assistive Devices: Denture - Upper and Glasses Physical Exam Genitourinary: External genitalia with 1mm ulcer, surrounded by 3mm erythematous base, located at the medial edge of the left labium majus at its superior aspect. No other lesions. No internal exam done as patient has no relevant complaints. Results & Data ([facility]) Vital Signs (Past 12 Hours) Vital Signs Temp Pulse Pulse Resp BP Pulse Ox 06/23/20 15:18 98.6 F 100 H 18 164/90 H 94 06/23/20 11:15 98.8 F 96 H 18 151/92 H 98 06/23/20 07:55 98.4 F 76 18 141/84 H 94 06/23/20 07:30 67
[2020-06-23] MEDS ORDERED: INSULIN GLARGINE SOLOSTAR 100 UNITS/ML 3 ML PEN SC SCH (21:00)
[2020-06-23] MEDS ORDERED: MELATONIN 3 MG TAB PO SCH (21:00)
[2020-06-23] MEDS: ROSUVASTATIN CALCIUM 20 MG TAB PO SCH (21:07)
[2020-06-23] MEDS: ENOXAPARIN INJ 40 MG/0.4 ML SYR SQ SCH (21:09)
[2020-06-24] MEDS ORDERED: INSULIN ASPART 100 UNITS/ML 3 ML PEN SC SCH
[2020-06-24] MEDS: INSULIN ASPART 100 UNITS/ML 3 ML PEN SC SCH ×4 (00:16→12:11)
[2020-06-24] MEDS: GABAPENTIN 300 MG CAP PO SCH (08:43)
[2020-06-24] MEDS: CHOLECALCIFEROL 1,000 UNITS 25 MCG TAB PO SCH (08:43)
[2020-06-24] MEDS: ZINC SULFATE 220 MG CAPSULE PO SCH (08:43)
[2020-06-24] MEDS: MAGNESIUM OXIDE 400 MG TAB PO SCH (08:43)
[2020-06-24] MEDS: VENLAFAXINE HCL XR 150 MG CAPXR PO SCH (08:43)
[2020-06-24] MEDS: LINACLOTIDE 145 MCG CAPSULE PO SCH (08:43)
[2020-06-24] MEDS: CeleBREX 200 MG CAP PO SCH (08:43)
[2020-06-24] MEDS: metFORMIN HCL 500 MG TAB PO SCH (08:44)
[2020-06-24] MEDS ORDERED: FENOFIBRATE NANOCRYSTALLIZED 145 MG TABLET PO SCH (09:00)
[2020-06-24] MEDS ORDERED: valACYclovir HCL 500 MG TABLET PO SCH (09:45)
--- NOTE | 2020-06-24 11:25 | Pharmacy Report ---
Pharmacy Glycemic Short Note 2 - Date of Service June 24, 2020 - Glycemic Short BSG Results (Last 24 hours): 06/23/20 06/23/20 06/23/20 11:26 11:27 11:27 POC Glucose 339 H* 258 H 295 H 06/23/20 06/23/20 06/23/20 15:05 16:30 20:24 POC Glucose 326 H* 238 H 342 H* 06/23/20 06/24/20 06/24/20 20:25 00:13 04:14 POC Glucose 356 H* 284 H 173 H 06/24/20 06/24/20 07:51 11:15 POC Glucose 108 H 274 H OUTPATIENT ANTIDIABETIC REGIMEN: * metformin, glimepiride ASSESSMENT: 06/24 * Pt has received 66 units of insulin over the past 24hrs * 25 units of basal with Lantus * 41 units of bolus with NovoLog * BSGs [phone] mg/dl * Pt with sustained hyperglycemia secondary to dexamethasone 4mg PO QAM. Last dose was 06/23 AM. DC steroids should yield an improvement in BSGs. Will start to taper insulin. 06/23 * 69 year old admitted with possible seizure activity, possibly related from severe hypoglycemia. Also with COVID infection. * Patient received total of 52 units of insulin yesterday, of which 20 units were basal insulin * Fasting BSG 141 mg/dL - increase to basal this AM to help with steroid coverage, also tighten CF/CR * Add scale for basal at HS if still elevated PLAN FOR INPATIENT GLYCEMIC CONTROL: * Hold outpatient oral diabetes medications * Basal insulin * DC AM Lantus * Continue Lantus HS - dose based on BSG * BSG < 160 mg/dl: give Lantus 10 units (0.2 units/kg) * BSG 160 mg/dl or above: give Lantus 15 units (0.3 units/kg) * Bolus insulin: tighten CR for elevated post-prandial BSGs * NovoLog per scale ACHS or Q6hrs while NPO * Goal Range: Low 110 mg/dL - High 140 mg/dL * Correction Factor: 30 mg/dL/unit * Nutritional / Prandial insulin per carb ratio of 1 unit per 9 grams CHO consumed PLAN FOR DISCHARGE: * A1c = 7.1 % on 06/21/20 * Goal A1c = <7 % based on age and comorbidities * No changes needed to outpatient regimen as A1c is in goal range.
--- NOTE | 2020-06-24 11:55 | Hospitalist Progress Note ---
Date of Service June 24, 2020 Assessment & Plan (1) Seizure-like activity: Daughter witnessed 3 discrete episodes of such before admission. Due to severe hypoglycemia MRI brain negative, EEG negative. When EMS arrived to pt's house BSG was 34 and daughter had just witnessed one of the spells. (2) Diabetes mellitus with hypoglycemia: a1c 7.1% presenting severe hypoglycemia - suspect combination of anorexia in the setting of COVID illness along with sulfonylurea use. Sulfonylurea has been discontinued. Victoza discontinued. Lantus dosage has been down titrated. Restarted Metformin. Hypoglycemia resolved. DM education consult appreciated. (3) COVID-19: dx 06/06/20 upon admission to [facility]. Hospitalized 06/06/20 to 06/08/20, d/c to home. Readmitted to [facility] 06/15 and d/c again back to home on 06/17. Was sick with COVID symptoms several days prior to 06/06/20. Now asymptomatic. Dexamethasone discontinued. On room air. (4) Metabolic encephalopathy: 2nd to hypoglycemia. Resolved. (5) HLD (hyperlipidemia): Continue fenofibrate 145 mg p.o. daily and rosuvastatin 40 mg p.o. every evening (6) Depression: Continue venlafaxine 150 mg p.o. daily in the a.m. (7) Muscle spasm: Continue cyclobenzaprine 10 mg p.o. 3 times daily as needed (8) Migraine headache: Continue rizatriptan as needed (9) Peripheral neuropathy: Continue gabapentin 300 mg p.o. 3 times daily Presumed diabetic polyneuropathy (10) Arthritis: Continue Celebrex 200 mg p.o. every morning. Hold piroxicam. Continue tramadol 50 mg p.o. every 6 hours as needed moderate pain. (11) DVT prophylaxis: lovenox daily Dispo: Probable discharge to home tomorrow, June 24 (12) Herpes genitalis: valtrex for 5 days per Visual And Stock Associate content management consultant Admission and Anticipated Discharge Date Admission Date: June 20, 2020 Subjective Visual And Stock Associate consult noted. valtrex recommended for herpetic vulvar lesion. Glucose stable. Home today. Victoza and sulfonylurea discontinued. Review of Systems Review of Systems: All systems reviewed & are unremarkable except as noted in HPI & below Physical Exam Constitutional: WD/WN, vitals as above Eyes: PERRL, conjunctivae normal, anicteric sclerae ENMT: external ear and nose normal, oropharynx normal Neck: trachea midline, no thyromegaly Respiratory: normal respiratory effort, lungs clear to auscultation Cardiovascular: Rate/Rhythm: regular rate and regular rhythm Gastrointestinal (Abdomen): normal bowel sounds, soft, nontender, no hepatosplenomegaly Musculoskeletal: no cyanosis or clubbing, extremities motor strength 5/5 Skin: no rashes, warm and dry Neurologic: CN's II-XI intact bilaterally and moves all extremities Psychiatric: A+Ox3, euthymic affect Results & Data Results & Data ([facility]) Vital Signs (Past 12 Hours) Vital Signs Temp Pulse Pulse Resp BP Pulse Ox 06/24/20 11:02 37.1 C 115 H 20 136/81 92 06/24/20 07:51 36.9 C 90 20 127/85 96 06/24/20 07:49 71 06/24/20 04:17 36.9 C 65 16 129/66 96 06/23/20 23:59 105 H Laboratory Results 06/22/20 05:51 06/23/20 06:43 PG Care Time/CCT Total # of Minutes Spent Total Time Spent with Patient: Total time spent is greater than 50% in coordination of care (as documented) at patient's floor/unit and/or counseling patient: Coding Level of Care Code 06811 Subseq Hosp Care Lvl 3 Diagnoses Seizure-like activity R56.9 Diabetes mellitus with hypoglycemia E11.649 COVID-19 U07.1 Metabolic encephalopathy G93.41 HLD (hyperlipidemia) E78.5 Depression F32.9 Muscle spasm M62.838 Migraine headache G43.909 Peripheral neuropathy G62.9 Arthritis M19.90 DVT prophylaxis Z29.9 Herpes genitalis A60.00
--- NOTE | 2020-06-30 09:18 | Coding Query ---
To promote full compliance with coding requirements relating to patient care, provider participation is requested in all cases of conservation policy analyst uncertainty. Please assist us with the question(s) below: Coding Question(s): The diagnosis below was documented in the 06/21 and 06/22 Progress Notes, then subsequently fell off all further documentation. Please indicate if it is still a possible diagnosis or ruled out. Physician's Response(s): PNEUMONITIS - (documentation under (3) COVID-19 on Progress Notes 06/21 & 06/22 of, "Although cxr was negative at admission, she has ongoing cough along with b/l rales on exam c/w pneumonitis") ( ) Diagnosed and POA ( ) Diagnosed and not POA ( x ) Ruled out ( ) Other (please specify) MTDD
--- NOTE | 2020-06-30 09:22 | Coding Query ---
CODING QUERY To promote full compliance with coding requirements relating to patient care, provider participation is requested in all cases of grain blender uncertainty. Please assist us with the question(s) below: Coding Question(s): Diabetes is documented in the record with documentation on 06/22/20 Progress Note of, "patient's body habitus and lability suggest T1DM. safest option for her post-d/c may be basal-bolus insulin". Please specify below, in your clinical opinion, regarding the Type of Diabetes. ( ) Diabetes, Type 1 ( x ) Diabetes, Type 2 ( ) Diabetes, Other Type. Please Specify ( ) Diabetes, Unknown Likely Type Physician's Response(s): Thank you Azalea Turpin Principal Diagnosis: "that condition established after study, to be chiefly responsible for occasioning the admission of the patient to the hospital for care." Co-Existing Principal Diagnosis: "when two or more diagnoses equally meet the criteria for principal diagnosis as determined by the circumstances of admission, diagnostic work up, and/or therapy provided, and the Alphabetic Index, Tabular List, or another coding guideline does not provide sequencing direction, any one of the diagnoses may be sequenced first." "When the physician has documented what appears to be a current diagnosis in the body of the record, but has not included the diagnosis in the final diagnostic statement, the physician should be asked whether the diagnosis should be added." (Source Coding [facility] 2 QTR90. p3-4) LORENA
--- NOTE | 2020-07-22 14:09 | Discharge Summary ---
Date of Service July 22, 2020 Admission HPI Per Admitting Provider The patient is a 69-year-old female with a past medical history including muscle spasm, hyperlipidemia, peripheral neuropathy, diabetes mellitus, diabetic gastroparesis, osteoarthritis, migraine headache, depression and chronic pain syndrome. Her HPI is somewhat limited as the patient is confused in the emergency department, but she was brought into the emergency department by EMS due to low blood sugars in the 20s to 30sand after being given D10 en route her blood sugar was 120s upon arrival in the ED. The patient denies taking any extra diabetic medications, and she does remember eating oatmeal for breakfast in the morning, but cannot contributing further at this point. She does report that she was in [facility] twice for treatment for COVID-19 infection, and was discharged from there a few days ago. She cannot say how she was treated and for what interval of times. Principal Diagnosis Hypoglycemia in type 2 diabetes, herpes genitalis Discharge Data Allergies Allergy/AdvReac Type Severity Reaction Status Date / Time codeine Allergy Unknown Itchiness Verified 06/20/20 20:52 erythromycin base Allergy Unknown Itchiness Verified 06/20/20 20:52 Penicillins Allergy Unknown Itchiness Verified 06/20/20 20:52 propoxyphene Allergy Unknown UNKNOWN Verified 06/20/20 20:52 sumatriptan Allergy Unknown Unknown Verified 06/20/20 20:52 adhesive tape AdvReac Mild "Rips skin Unverified 06/20/20 20:52 off with it" Consultations 06/20/20 21:40 ED Decision to Admit Stat 06/23/20 17:58 Consult Gynecology Routine Ordered Studies 06/21/20 10:53 MR brain wo con Routine Hospital Course (1) Seizure-like activity: Daughter witnessed 3 discrete episodes of such before admission. Due to severe hypoglycemia MRI brain negative, EEG negative. When EMS arrived to pt's house BSG was 34 and daughter had just witnessed one of the spells. (2) Diabetes mellitus with hypoglycemia: a1c 7.1% presenting severe hypoglycemia - suspect combination of anorexia in the setting of COVID illness along with sulfonylurea use. Sulfonylurea has been discontinued. Victoza discontinued. Lantus dosage has been down titrated. Restarted Metformin. Hypoglycemia resolved. DM education consult appreciated. (3) COVID-19: dx 06/06/20 upon admission to [facility]. Hospitalized 06/06/20 to 06/08/20, d/c to home. Readmitted to [facility] 06/15 and d/c again back to home on 06/17. Was sick with COVID symptoms several days prior to 06/06/20. Now asymptomatic. Dexamethasone discontinued. On room air. (4) Metabolic encephalopathy: 2nd to hypoglycemia. Resolved. (5) HLD (hyperlipidemia): Continue fenofibrate 145 mg p.o. daily and rosuvastatin 40 mg p.o. every evening (6) Depression: Continue venlafaxine 150 mg p.o. daily in the a.m. (7) Muscle spasm: Continue cyclobenzaprine 10 mg p.o. 3 times daily as needed (8) Migraine headache: Continue rizatriptan as needed (9) Peripheral neuropathy: Continue gabapentin 300 mg p.o. 3 times daily Presumed diabetic polyneuropathy (10) Arthritis: Continue Celebrex 200 mg p.o. every morning. Hold piroxicam. Continue tramadol 50 mg p.o. every 6 hours as needed moderate pain. (11) DVT prophylaxis: lovenox daily Dispo: Probable discharge to home tomorrow, June 24 (12) Herpes genitalis: valtrex for 5 days per Veterinary Medicine Scientist pmo consultant Total Time Total Time Spent Total Time Spent (In Minutes): 35 minutes Total Time Includes: Examination of the Patient, Discharge Planning and Medicati on Reconciliation Discharge Plan Discharge Items Patient Disposition: Home - Home Health Services Reason For Visit: HYPOGLYCEMIA, COVID-19 INFECTION WITH HYPOXIA Discharge Diagnosis: Type 2 DM with medication induced hypoglycemia, metabolic encephalopathy, herpes genitalis Activity: Resume your previous activity Non-emergency contact: Primary Care Provider Call non-emergency contact if: you have any medication questions and your symptoms worsen Follow-up/Referrals: PT,DECLINED [Primary Care Provider] - Diet: Carb Consistent or DM2 Addtl Attending Provider Instructions: Victoza and glimeperide/glyburide discontinued. Toujeo dosage has been decreased. Metformin remains the same. Pending Studies at Discharge: No Stand-Alone Forms: My [employer], Smoking Cessation Medications and DC Order Prescriptions: New valacyclovir 500 mg Tablet 500 mg PO BID Qty: 10 RF: 0 Continued celecoxib 200 mg capsule 200 mg PO QAM RF: 0 cyclobenzaprine 10 mg tablet 10 mg PO TID PRN (Reason: muscle spasms) RF: 0 metformin 500 mg tablet 500 mg PO BID RF: 0 rizatriptan 10 mg tablet 10 mg PO DIRECTED PRN (Reason: Migraine Headache) RF: 0 venlafaxine 150 mg capsule,extended release 24hr 150 mg PO QAM RF: 0 tramadol 50 mg tablet 50 mg PO Q6H PRN (Reason: Pain) RF: 0 fenofibrate micronized 134 mg capsule 134 mg PO QAM RF: 0 magnesium oxide 400 mg (241.3 mg magnesium) tablet 400 mg PO BID RF: 0 gabapentin 300 mg capsule 300 mg PO TID RF: 0 albuterol sulfate 90 mcg/actuation HFA aerosol inhaler 2 puff INHALATION DIRECTED PRN (Reason: Shortness Of Breath) RF: 0 piroxicam 20 mg capsule 20 mg PO QAM RF: 0 fluticasone propionate 50 mcg/actuation spray,suspension 1 spray INTRANASAL QAM RF: 0 rosuvastatin 40 mg tablet 40 mg PO PM RF: 0 cholecalciferol (vitamin D3) [Vitamin D3] 50 mcg (2,000 unit) tablet 2,000 unit PO QAM RF: 0 Linzess 145 mcg capsule 145 mcg PO QAM RF: 0 Changed Toujeo SoloStar U-300 Insulin 300 unit/mL (1.5 mL) Insulin Pen 40 unit SUBCUT DAILY Qty: 0 RF: 0 Discontinued glimepiride 4 mg tablet 4 mg PO BID RF: 0 Victoza 3-Rush 0.6 mg/0.1 mL (18 mg/3 mL) Pen Injector 1.8 mg SUBCUT DAILY RF: 0 Discharge Orders: Discharge Order (Routine); Ordered 06/24/20 Ordered By: Davy Wyman Admission Data Admit Date/Time: 06/20/20 23:51 Attending Provider: Davy Wyman Admit Provider: To Ewing Primary Care Provider: CHANDU,JOSUE Other Providers: Talia Comer Other Interventions: Discharge Summary Assessment (RN) Last Done: 06/24/20 12:16 Coding Level of Care Code D/C Day Management >30 mins Diagnoses Seizure-like activity R56.9 Diabetes mellitus with hypoglycemia E11.649 COVID-19 U07.1 Metabolic encephalopathy G93.41 HLD (hyperlipidemia) E78.5 Depression F32.9 Muscle spasm M62.838 Migraine headache G43.909 Peripheral neuropathy G62.9 Arthritis M19.90 DVT prophylaxis Z29.9 Herpes genitalis A60.00
== END 2020-06-24 14:06 | disposition home health service (06) | DRG 637 ==
LOC: ED 19:58 → 2N 23:51 → SUATTDRO 23:51 → 2N 06-21 00:43

== ENCOUNTER 2024-07-05 16:03 | Inpatient (IN) ==
--- OUTSIDE RECORDS SUMMARY | 2024-07-05 16:07 | External Medical Summary | Summary of Care ---
Author Name Unknown Organization [facility] [address] [address] Phone [phone] Care Team Providers Care Supervisor Printing And Stamping Name Role Phone Romeoalisha Luzmaria ISSA Primary Care Provid er Reason for Visit * Reason Onset Date Comments FYI 05/28/2024 Encounter Details Date Type Department Care Team (Late st Contact Info) Description 05/28/2024 Telephone [facility], [facility] [address] [place] [address] [place] Mar[place] [id number] [facility], [address] [place] [address] FYI Allergies Active Allergy Reactions Criticality Noted Date Comments Erythromycin Base 10/01/1997 upset stomach Morphine And Codeine 10/01/1997 stomach upset Penicillins 10/01/1997 rash Propoxyphene Napsylate 10/01/1997 sick/shakey Sumatriptan Succinate 09/05/1999 upset stomach,shaky,headache worsened documented as of this encounter (statuses as of 05/28/2024) Medications ALBUTEROL AERS 90 MCG/ACT INIndications:As thma, allergic 2 puffs every 4 hours as needed for breathing 2 5 2 Active GLUCOPHAGE 500 MG OR TABSIndications: DM type 2, not at goal (HCC) one tab by mouth 2 times a day 60 5 3 Active NITROGLYCERIN 0.3 MG SL SUBLIndications: Other chest pain one tab under tongue as needed for chest pain maximum 3 doses 25 0 3 Active AMBIEN 5 MG OR TABSIndications: Insomnia, unspecified 1 tab by mouth at bedtime as needed for sleep 15 3 3 Active DICLOFENAC TABS 75 MG ORIndications:Ba ckache,Calculus of kidney 1 po bid pc 60 5 3 Active NEURONTIN 300 MG OR CAPSIndications: Depressive disorder, not elsewhere classified 1 po qd 30 5 3 Active TOUJEO SOLOSTAR 300 UNIT/ML SOPN 8 Active VICTOZA 18 MG/3ML SOPN 9 Active traZODone (DESYREL) 150 MG Tablet 9 Active glimepiride (AMARYL) 4 MG Tablet 9 Active venlafaxine XR (EFFEXOR XR) 150 MG CP24 9 Active Fenofibrate Micronized 134 MG Capsule 9 Active NOVOFINE 32G X 6 MM MISC 8 Active omeprazole (PRILOSEC) 20 MG CPDR 9 Active rosuvastatin (CRESTOR) 40 MG Tablet 9 Active LINZESS 145 MCG Capsule 9 Active fluticasone (FLONASE) 50 MCG/ACT nasal spray 8 Active Magnesium 400 MG Capsule Take 400 mg by mouth daily. Active albuterol (VENTOLIN HFA) 108 (90 BASE) MCG/ACT inhaler Inhale 2 Puffs by mouth every 6 hours as needed. Active fluticasone-salm eterol (ADVAIR DISKUS) 500-50 MCG/DOSE inhaler Inhale 1 Puff by mouth 2 times a day. Active documented as of this encounter (statuses as of 05/28/2024) Active Problems Problem Noted Date Diagnosed Date Major depressive disorder, recurrent episode 03/2002 Mixed dyslipidemia GENERAL OSTEOARTHROSIS COMMON MIGRAINE WITHOUT MENTION OF INTRACTABLE M IGRAINE Endometriosis of other specified sites Asthma with severity to be determined Overview (07/05/2015): ICD-10 update of inactive term documented as of this encounter (statuses as of 05/28/2024) Resolved Problems Problem Noted Date Diagnosed Date Resolved Date ACUTE SINUSITIS NOS 02/25/1998 05/04/19 Bacterial pneumonia 02/25/1998 05/04/19 documented as of this encounter (statuses as of 05/28/2024) Social History Tobacco Use Types Packs/Day Years Used Date Smoking Tobacco: Never Smokeless Tobacco: Never Alcohol Use Standard Drinks/Week Comments No 0 (1 standard drink = 0.6 oz pur e alcohol) Utilities Answer Date Recorded Do you have trouble paying y our heating, water, or electric bill? (Adult - for ages 18 years and over) Not on file 09/11/2023 Is your family able to pay t he heat, water, or electric bill? (Household - for ages 0-17 years) Not on file 09/11/2023 Does your family have access to good internet? (Household - for ages 0-17 years) Not on file 09/11/2023 Social Connections Answer Date Recorded How often do you feel lonely or isolated from those around you? 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 Answer Date of Assessment Author No 05/16/2018 11:00 AM Latoya Etienne HARSHA * Are you blind or do you have serious difficulty seeing, even when wearing glasses? Answer Date of Assessment Author No 05/16/2018 11:00 AM Latoya Etienne HARSHA * Do you have serious difficulty walking or climbing stairs? (5 years old or older) Answer Date of Assessment Author Yes 05/16/2018 11:00 AM Latoya Etienne HARSHA * Do you have difficulty dressing or bathing? (5 years old or older) Answer Date of Assessment Author Yes 05/16/2018 11:00 AM Latoya Etienne HARSHA * Because of a physical, mental, or emotional condition, do you have difficulty doing errands alone such as visiting a doctor’s office or shopping? (15 years old or older) Answer Date of Assessment Author No 05/16/2018 11:00 AM EST Latoya Tellez HARSHA documented as of this encounter Mental Status * Because of a physical, mental, or emotional condition, do you have serious difficulty concentrating, remembering, or making decisions? (5 years old or older) Answer Entry Date Author No 05/16/2018 11:00 AM EST Latoya Tellez, HARSHA documented in this encounter Miscellaneous Notes * Telephone Encounter - Marie Eng PHARM Tech - 05/28/2024 3:00 PM EST Patient calling to request if her ins was accepted by dermatology. Transferred pt to scheduling forfurther assistance. Thank You, Marie Eng [facility] Bus Transportation Manager III [facility] ([facility]) 05/28/2024, 3:00 PM documented in this encounter Plan of Treatment Health Maintenance Due Date Last Done Comments DXA Scan 1950 Depression Monitoring 1962 Hepatitis C Screening 1968 DTap/Tdap Vaccines (1 - Tdap) 1969 Pneumococcal Vaccine: 50+ Years (2 of 2 - PCV) 12/23/1993 12/23/1992 Cologuard 06/27/1995 Colonoscopy 06/27/1995 Sigmoidoscopy 06/27/1995 Colorectal Cancer Screening 05/06/2000 Fecal Occult Blood Test 05/06/2000 05/06/1999 Zoster Vaccines (1 of 2) 2000 Mammogram 09/14/2001 09/14/2000, 10/25, 11/04/1999 Lipid Panel 04/09/2007 04/09/2002, 01/14/2002 COVID-19 Vaccine ( season) 2023 Influenza Vaccine (FLU shot) (#1) 2023 01/27/1999, 01/27/1999, 01/14/1997, Additional history exists HPV (Gardasil) Vaccine Aged Out No lo nger eligible based on patient's age to complete this topic Hepatitis B Vaccine Aged Out No longe r eligible based on patient's age to complete this topic MENINGOCOCCAL (MENACTRA/MENVEO) Aged Out No longer eligible based on patient's age to complete this topic Meningitis B Vaccine (Bexsero/Trumemba) Aged Out No longer eligible based on patient's age to complete this topic documented as of this encounter Medical Devices Not on filedocumented as of this encounter Care Teams Supervisor Printing And Stamping Relationship Specialty Start Date End Date Luzmaria Alvarez CRNP [address] [place] [phone] PCP - General Nurse Practitioner 05/23/24 documented as of this encounter
--- OUTSIDE RECORDS SUMMARY | 2024-07-05 16:07 | External Medical Summary | Summary of Care ---
Author Name Unknown Organization [facility] Address [address] [place] [address] Phone [phone] Care Team Providers Care Handle Sander Operator Name Role Phone Luzmaria Alvarez Primary Care Provid er Reason for Referral * Evaluate & Treat - Unlimited Visits (Within 10 days (routine)) - Authorized Specialty Diagnoses / Procedures Referred By Amy walters Referred To Contact Dermatology Diagnoses Non-scarring hair loss Luzmaria Alvarez CRNP [address] [place] [address] Phone: tel: fax: Referral ID Status Reason Start Date Expiration Date Visits Requested Visits Authorized [id number] Authorized Specialty Services Required 05/23/2024 [id number] Question Answer Referral Priority Within 10 days (routine) Where should this appointment be scheduled? [facility] Are you referring the patient for Mohs Surgery and have a current positive skin cancer biopsy result? No What is the reason for the patient referral? Rash/Skin Check/Eval of Lesion or Mole Encounter Details Date Type Department Care Team (Late st Contact Info) Description 05/23/2024 Orders Only Access Center, [place] [address] [facility] *DO NOT REMOVE THIS DEPARTMENT* [place] [address] Request, External Referral Non-scarring hair loss* Allergies Active Allergy Reactions Criticality Noted Date Comments Erythromycin Base 10/01/1997 upset stomach Morphine And Codeine 10/01/1997 stomach upset Penicillins 10/01/1997 rash Propoxyphene Napsylate 10/01/1997 sick/shakey Sumatriptan Succinate 09/05/1999 upset stomach,shaky,headache worsened documented as of this encounter (statuses as of 05/23/2024) Medications ALBUTEROL AERS 90 MCG/ACT INIndications:As thma, [...] as of this encounter (statuses as of 05/23/2024) Active Problems Problem Noted Date Diagnosed Date Major depressive disorder, recurrent episode 03/2002 Mixed dyslipidemia GENERAL OSTEOARTHROSIS COMMON MIGRAINE WITHOUT MENTION OF INTRACTABLE M IGRAINE Endometriosis of other specified sites Asthma with severity to be determined Overview (07/05/2015): ICD-10 update of inactive term documented as of this encounter (statuses as of 05/23/2024) Resolved Problems Problem Noted Date Diagnosed Date Resolved Date ACUTE SINUSITIS NOS 02/25/1998 05/04/19 Bacterial pneumonia 02/25/1998 05/04/19 documented as of this encounter (statuses as of 05/23/2024) Social History Tobacco Use Types Packs/Day Years [...] No 05/16/2018 11:00 AM Latoya Etienne HARSHA documented as of this encounter Mental Status * Because of a physical, mental, or emotional condition, do you have serious difficulty concentrating, remembering, or making decisions? (5 years old or older) Answer Entry Date Author No 05/16/2018 11:00 AM Latoya Etienne HARSHA documented in this encounter Plan of Treatment Scheduled Referrals Name Type Priority Associated Diagnoses Orde r Schedule DERMATOLOGY REFERRAL OP Referral Within 10 days (routine) Non-scarring hair loss Ordered: 05/23/2024 Health Maintenance Due Date Last Done Comments [...] Not on filedocumented as of this encounter Visit Diagnoses Diagnosis Non-scarring hair loss- Primary Other alopecia documented in this encounter Care Teams Handle Sander Operator Relationship Specialty Start Date End Date Luzmaria Alvarez CRNP [address] [place] [id number] PCP - General Nurse Practitioner 05/23/24 documented as of this encounter
[2024-07-05 16:25] LABS: Basophils # (auto) 0.05 K/uL (0.00-0.20); Basophils % (auto) 0.5 %; Eosinophils # (auto) 0.16 K/uL (0.00-0.50); Eosinophils % (auto) 1.5 %; Hematocrit (blood only) 42.3 % (37.0-47.0); Hemoglobin 14.5 g/dl (12.0-16.0); Immature Granulocytes # (auto) 0.05 K/uL (0.01-0.20); Immature Granulocytes % (auto) 0.5 %; Lymphocytes # (auto) 3.75 K/uL (1.20-3.40); Lymphocytes % (auto) 36.1 %; Mean Corpuscular Hemoglobin 29.5 pg (25.0-34.0); Mean Corpuscular Hgb Conc 34.3 g/dL (32.0-36.0); Mean Platelet Volume 9.5 fL (9.4-12.4); Monocytes % (auto) 7.7 %; Neutrophils # (auto) 5.58 K/uL (1.40-6.50); Neutrophils % (auto) 53.7 %; Platelet Count 358 K/uL (130-400); RDW Coefficient of Variation 13.5 % (11.5-14.5); RDW Standard Deviation 42.4 fL (36.4-46.3); Red Blood Count 4.92 M/uL (4.20-5.40); White Blood Count 10.39 K/ul (4.8-10.8)
[2024-07-05] MEDS: ACETAMINOPHEN 1,000 MG/100 ML VIAL IV STA (16:40)
[2024-07-05 16:42] LABS: Albumin Globulin Ratio 1.6 (0.9-2); Albumin Level 4.5 gm/dl (3.4-5.0); BUN Creatinine Ratio 11.6 (10-20); Bilirubin,Total 0.3 mg/dl (0.2-1.0); Creatinine Clr Calc Pharmacy 28.5 ml/min; Globulin 2.9 gm/dl (2.5-4.0); Total Protein 7.4 gm/dl (6.0-8.3)
[2024-07-05 16:49] LABS: Troponin I High Sensitivity 6.2 pg/ml (0-14)
--- NOTE | 2024-07-05 16:49 | Emergency Department Note ---
Impression & Plan Chest pain ED Provider Note NAME: KANA PACKER AGE: 74 SEX: Female INFORMANT: Patient ED PROVIDER(S): Diogo Saunders MD CHIEF COMPLAINT: Chest pain PLAN: Disposition: Admitted Outpatient prescription management: none Referral: None MEDICAL DECISION MAKING: Patient presented because of complaints of intermittent chest pain. She had difficulty providing substantial history as she would give different answers to questions and she attributed this to her history of dementia. BioFire testing performed and was negative. Her CBC and chemistry panels were unremarkable. Cardiac troponin x 1 was negative. ECG did not reveal any acute ischemic change. Patient did receive a dose of IV Tylenol. Further evaluation and management in the hospital is appropriate. Consultation was made with Dr. [facility]. Case discussed and diagnostics were reviewed. Patient was evaluated in the ER admitted for further management. Care/management discussed with: senior program manager Level of care consideration(s): After review of the information above and other included data, I feel the patient requires escalation of care to admission. Triage Nursing notes: reviewed and agree them. Vital Signs: reviewed and remarkable for no significant abnormalities Additional History obtained from: none Chronic Medical/Social Conditions affecting care: Dementia, diabetes Prior/ Outside/ External records reviewed: none Differential Diagnosis: Infection, dehydration, metabolic abnormality, hypo/hyperglycemia, electrolyte disturbance, anemia, hypoxia, cardiac sources, intracerebral event, toxicologic, neurologic, as well as other pathologies. Diagnostics, independently interpreted by me: ECG: Twelve-lead ECG reveals a normal sinus rhythm at 97 bpm. Anterior Q waves. No ST elevation. Cardiac Monitoring: Cardiac monitoring ordered by me: The patient was placed on continuous cardiac monitoring and observed. It revealed a normal sinus rhythm at 88 beats per minute without ectopy or evidence of dysrhythmia. Medical decision rules: None Imaging studies: Chest x-ray. Findings: A chest x-ray was performed and revealed no pneumothorax, effusion, infiltrate, pulmonary edema, free air under the diaphragm, or wide mediastinum. Impression: No acute disease. CT PE study is negative for pulm embolism. HPI: 74 year old Female arrives for evaluation of chest pain described as pressure-like. This started last week per the patient however she does give some conflicting information and states to nursing it was 2 days ago. Patient states that she was seen at the [facility] and discharged. The patient also notes the following associated symptoms, diaphoresis with the chest discomfort, flulike symptoms. The patient has been given nitroglycerin x 1 by EMS for relieving factors. Current pain is rated as 0/10. Patient was only given 1 nitroglycerin noting that it did cause headache. When asked detailed questions patient is unable to give specific answers noting she does have a history of mild dementia. Pt denies LOC, headache, fevers, chills, visual changes, neck pain, chest pain, nausea, vomiting, abdominal pain, back pain, diarrhea, urinary symptoms, rash, or other complaints. PAST MEDICAL HISTORY: See Below, mild dementia, diabetes PAST SURGICAL HISTORY: See Below, SOCIAL HISTORY: See Below, former smoker HOME MEDICATIONS: See Below ALLERGIES: See Below VITALS: See Below PHYSICAL EXAMINATION: GENERAL: Awake, alert, mildly anxious-appearing, in no distress HENT: Normocephalic, atraumatic. Oropharynx unremarkable. EYES: Normal conjunctiva. Sclera non-icteric. NECK: Inspection normal. Non-tender. Supple. No nuchal rigidity. FROM. No masses. RESPIRATORY: Clear to auscultation. No wheezes. No rales. Normal respiratory effort. CARDIAC: Normal rate. Normal rhythm. No murmurs. No rubs. Extremities warm and well perfused. Pulses equal. No JVD. GI: Soft, non-distended. No tenderness to palpation. No rebound or guarding. No masses. RECTAL: Deferred. MUSCULOSKELETAL: Atraumatic. Chest examination reveals no tenderness. There is no CVA tenderness to palpation. No joint edema. LOWER EXTREMITIES: Calves are equal size bilaterally and non-tender. No edema. No discoloration. NEURO: Normal sensorium. No sensory or motor deficits noted. SKIN: No rash or jaundice noted. PROCEDURES: none CRITICAL CARE: none OBSERVATION NOTE: none Past Med/Surg History Problem List (Updated 07/05/24 @ 21:50 by Ritu Estes DO) Cough Chest pain (Acute) Osteoarthritis Memory loss Mild cognitive impairment Herpes genitalis Herpetic ulcer of vulva Metabolic encephalopathy GERD (gastroesophageal reflux disease) Diabetes mellitus with hypoglycemia Epigastric pain (Acute) Gastritis (Acute) Nausea and vomiting (Acute) Medical History Alzheimer's dementia Seasonal allergies Asthma Seizure-like activity Arthritis Peripheral neuropathy Migraine headache Muscle spasm Depression COVID-19 Diabetes HLD (hyperlipidemia) Surgical History H/O breast biopsy H/O: hysterectomy History of surgical removal of ganglion cyst Social History Smoking Status: Former smoker Second Hand Exposure: No; Do You Dip or Chew Tobacco: No; Hx Alcohol Use: No Hx Substance Use: No Preferred Language: Comoran Communication Ability: Effective 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: No Beliefs That Will Affect Care: None Current Living Situation: Alone Feels Safe at Home: Yes Assistive Devices: Glasses and Walker Allergies Allergies Allergy/AdvReac Type Severity Reaction Status Date / Time codeine Allergy Unknown Itchiness Verified 06/11/23 13:53 erythromycin base Allergy Unknown Itchiness Verified 06/11/23 13:53 Penicillins Allergy Unknown Itchiness Verified 06/11/23 13:53 propoxyphene Allergy Unknown UNKNOWN Verified 06/11/23 13:53 sumatriptan Allergy Unknown Unknown Verified 06/11/23 13:53 adhesive tape AdvReac Mild "Rips skin Unverified 06/11/23 13:53 off with it" Home Meds Home Medications Medication Instructions Recorded Confirmed cholecalciferol (vitamin D3) 50 3,000 unit PO QAM 06/20/20 07/05/24 mcg (2,000 unit) tablet (Vitamin D3) fenofibrate micronized 134 mg 134 mg PO UD 06/20/20 07/05/24 capsule metformin 500 mg tablet 500 mg PO UD 06/20/20 07/05/24 rizatriptan 10 mg tablet 10 mg PO DIRECTED PRN Migraine 06/20/20 07/05/24 Headache albuterol sulfate 2.5 mg/3 mL 2.5 mg inhalation Q6H PRN sob 03/15/23 07/05/24 (0.083 %) solution for nebulization calcium 600 mg (as 1 tab PO UD 03/15/23 07/05/24 carbonate)-vitamin D3 10 mcg (400 unit) tablet loratadine 10 mg tablet 10 mg PO DAILY 03/15/23 07/05/24 pen needle, diabetic 32 gauge x #100 ea 03/15/23 03/15/2303/29" (Easy Touch) trazodone 50 mg tablet 50 mg PO DAILY 03/15/23 07/05/24 blood-glucose sensor (Dexcom G7 #1 ea 06/11/23 06/11/23 Sensor device) pen needle, diabetic 32 gauge x #1,200 ea 06/11/23 06/11/23 5/32" (BD Carina 2nd Gen Pen Needle) albuterol sulfate 90 mcg/actuation 1 puff inhalation Q4H PRN Wheezing 07/05/24 07/05/24 aerosol inhaler duloxetine 60 mg capsule,delayed 60 mg PO UD 07/05/24 07/05/24 release insulin glargine U-300 conc 300 78 unit subcut DAILY 07/05/24 07/05/24 unit/mL (1.5 mL) subcutaneous pen (Toujeo SoloStar U-300 Insulin) levofloxacin 750 mg tablet 750 mg PO DAILY 07/05/24 07/05/24 Results & Data (ED) Vital Signs Vital Signs - 24 hr 07/05/24 16:08 07/05/24 16:17 07/05/24 16:22 Temperature 36.9 C Temperature Source Oral Pulse Rate 96 H 94 H Respiratory Rate 16 Respiratory Effort / Characteristics Non-Labored Spontaneous Respiratory Depth Normal Respiratory Pattern Regular Blood Pressure 149/96 H Blood Pressure Mean 113 Pulse Oximetry 100 97 Oxygen Delivery Method Room Air Room Air Sepsis Recent Fever Within 48 Hours No Sepsis New/Unexplained Change in Mental Status No Sepsis Action Taken by Nursing No Action Required 07/05/24 17:30 07/05/24 18:12 07/05/24 18:51 Temperature Temperature Source Pulse Rate 83 100 H 84 Respiratory Rate 24 20 24 Respiratory Effort / Characteristics Respiratory Depth Respiratory Pattern Blood Pressure 143/84 H 154/87 H 155/106 H Blood Pressure Mean 103 109 122 Pulse Oximetry 98 99 100 Oxygen Delivery Method Sepsis Recent Fever Within 48 Hours Sepsis New/Unexplained Change in Mental Status Sepsis Action Taken by Nursing 07/05/24 19:48 Temperature Temperature Source Pulse Rate 99 H Respiratory Rate 20 Respiratory Effort / Characteristics Respiratory Depth Respiratory Pattern Blood Pressure 176/118 H Blood Pressure Mean 137 Pulse Oximetry 92 Oxygen Delivery Method Sepsis Recent Fever Within 48 Hours Sepsis New/Unexplained Change in Mental Status Sepsis Action Taken by Nursing Laboratory Data 07/05/24 16:09 07/05/24 16:09 Lab Results 07/05/24 07/05/24 07/05/24 Range/Units 16:09 16:45 19:40 WBC 10.39 (4.8-10.8) K/ul RBC 4.92 (4.20-5.40) M/uL Hgb 14.5 (12.0-16.0) g/dl Hct 42.3 (37.0-47.0) % MCV 86.0 (80.0-100.0) fL MCH 29.5 (25.0-34.0) pg MCHC 34.3 (32.0-36.0) g/dL RDW Std Deviation 42.4 (36.4-46.3) fL RDW Coeff of Rfuus 13.5 (11.5-14.5) % Plt Count 358 (130-400) K/uL MPV 9.5 (9.4-12.4) fL Immature Gran % (Auto) 0.5 % Neut % (Auto) 53.7 % Lymph % (Auto) 36.1 % [place] % (Auto) 7.7 % Eos % (Auto) 1.5 % Baso % (Auto) 0.5 % Neut # (Auto) 5.58 (1.40-6.50) K/uL Lymph # (Auto) 3.75 H (1.20-3.40) K/uL [place] # (Auto) 0.80 H (0.11-0.59) K/uL Eos # (Auto) 0.16 (0.00-0.50) K/uL Baso # (Auto) 0.05 (0.00-0.20) K/uL Immature Gran # (Auto) 0.05 (0.01-0.20) K/uL Sodium 140 (136-145) mmol/L Potassium 4.0 (3.5-5.1) mmol/L Chloride 103 (98-107) mmol/L Carbon Dioxide 29 (21-32) mmol/L Anion Gap 8 (3-11) BUN 15 (6-23) mg/dl Creatinine 1.29 H (0.6-1.2) mg/dl Est Cr Clr Drug Dosing 28.5 ml/min eGFR 43.55 BUN/Creatinine Ratio 11.6 (10-20) Glucose 111 H (70-99(Fasting)) mg/dl POC Glucose 75 (70-99) mg/dl Calcium 10.0 (8.6-10.3) mg/dl Total Bilirubin 0.3 (0.2-1.0) mg/dl AST 16 (13-39) U/L ALT 9 (7-52) U/L Alkaline Phosphatase 70 (34-104) U/L Troponin I High Sens 6.2 (0-14) pg/ml Total Protein 7.4 (6.0-8.3) gm/dl Albumin 4.5 (3.4-5.0) gm/dl Globulin 2.9 (2.5-4.0) gm/dl Albumin/Globulin Ratio 1.6 (0.9-2) Lipase 16 (11-82) U/L Adenovirus (PCR) Not Detected (NotDetected) B. pertussis DNA (PCR) Not Detected (NotDetected) B.parapertussis DNA PCR Not Detected (NotDetected) C. pneumoniae DNA (PCR) Not Detected (NotDetected) Coronavirus OC43 (PCR) Not Detected (NotDetected) Coronavirus HKU1 (PCR) Not Detected (NotDetected) Coronavirus 229E (PCR) Not Detected (NotDetected) SARS-CoV-2 (PCR) Not Detected (NotDetected) Coronavirus NL63 (PCR) Not Detected (NotDetected) Human Metapneumovir PCR Not Detected (NotDetected) Influenza Type A (PCR) Not Detected (NotDetected) Influenza Type B (PCR) Not Detected (NotDetected) M. pneumoniae (PCR) Not Detected (NotDetected) Parainfluenza 1 (PCR) Not Detected (NotDetected) Parainfluenza 2 (PCR) Not Detected (NotDetected) Parainfluenza 3 (PCR) Not Detected (NotDetected) Parainfluenza 4 (PCR) Not Detected (NotDetected) RSV (PCR) Not Detected (NotDetected) Entero/Rhino (PCR) Not Detected (NotDetected) Administered Medications Insulin Aspart (Insulin Aspart Per Unit Charge) 0 units SC ACHS MARTINA Stop: 08/04/24 23:22 Last Admin: 07/06/24 00:40 Dose: 2 units Documented By: JJ Co-signed By: HM Discontinued Medications Acetaminophen (Ofirmev) 1,000 mg in 100 mls @ 400 mls/hr IV NOW STA Stop: 07/05/24 16:40 Last Infusion: 07/05/24 17:24 Dose: Infused Documented By: Admin: 07/05/24 16:40 Dose: 400 mls/hr Documented By: CHRISTINA Ioversol (Optiray 320 125ml) 118 ml IV ONCE ONE Stop: 07/05/24 19:38 Last Admin: 07/05/24 19:38 Dose: 118 ml Documented By: GES Imaging Data Radiologist's Impression: Chest X-Ray 07/05/24 16:10 EXAM: Radiograph of the Chest 1 View INDICATION: Chest pain TECHNIQUE: Frontal view of the chest. COMPARISON: 06/20/2020 FINDINGS: Lungs and pleural spaces: No consolidation or pulmonary edema. No pleural effusion or pneumothorax. Heart: Shape and configuration within normal limits allowing for technique. Mediastinum: Normal contour. Bones/joints: No fracture, erosion or dislocation. Soft tissues: No abnormality noted. No radiopaque foreign body noted. Upper abdomen: No abnormality noted. IMPRESSION: No acute cardiopulmonary disease. ACT 112: N/A Electronically signed by Klaudia Almendarez 07-05-2024 5:48 PM Chest CTA 07/05/24 19:19 CT PULMONARY ANGIOGRAM. HISTORY: Chest pain TECHNIQUE: Enhanced CT examination of the chest was performed using pulmonary embolism protocol. IV CONTRAST: 100 mL of OMNIPAQUE 300 COMPARISON: Chest radiograph from same day. FINDINGS: PULMONARY ARTERIES: No filling defect identified to the segmental level. LYMPH NODES: No lymphadenopathy by size criteria. CARDIOVASCULAR: Mildly enlarged cardiac size. No pericardial effusion. No aortic aneurysm. There are coronary artery calcifications in keeping with coronary artery disease. MEDIASTINUM: No solid or cystic mediastinal masses. The esophagus is normally decompressed. LUNGS/PLEURA: The central tracheo-bronchial tree is patent. No mass or consolidation identified. No pleural effusion or pneumothorax. A 4 mm pulmonary nodule in the left lung base (series 2, image 25). BONES: No suspicious osseous lesions. VISUALIZED LOWER NECK: Unremarkable. VISUALIZED UPPER ABDOMEN: Unremarkable IMPRESSION: No pulmonary embolism identified to the segmental level. No acute intrathoracic process detected. 4 mm pulmonary nodule in the left lung base. Surveillance CT in 6 to 12 months may be recommended Electronically signed by Will Gonzalez 07-05-2024 9:03 PM Discharge Plan Visit Data Chief Complaint: Chest Pain Stated Complaint: CHEST PRESSURE ED Provider: Diogo Saunders Discharge Problem: Chest pain Patient Disposition: Admitted As Inpatient Discharge Instructions Interventions: ED Discharge Assessment Last Done: 07/05/24 22:29
[2024-07-05 17:39] LABS: Adenovirus PCR Not Detected (NotDetected); Bordetella parapertussis PCR Not Detected (NotDetected); Bordetella pertussis PCR Not Detected (NotDetected); Chlamydia pneumoniae PCR Not Detected (NotDetected); Coronavirus 229E PCR Not Detected (NotDetected); Coronavirus CoV-2 (COVID19)PCR Not Detected (NotDetected); Coronavirus HKU1 PCR Not Detected (NotDetected); Coronavirus NL63 PCR Not Detected (NotDetected); Coronavirus OC43PCR Not Detected (NotDetected); Human Metapneumovirus PCR Not Detected (NotDetected); Influenza A PCR Not Detected (NotDetected); Influenza B PCR Not Detected (NotDetected); Mycoplasma pneumoniae PCR Not Detected (NotDetected); Parainfluenza Virus 1 PCR Not Detected (NotDetected); Parainfluenza Virus 2 PCR Not Detected (NotDetected); Parainfluenza Virus 3 PCR Not Detected (NotDetected); Parainfluenza Virus 4 PCR Not Detected (NotDetected); Respiratory Syncytial VirusPCR Not Detected (NotDetected); Rhinovirus/Enterovirus PCR Not Detected (NotDetected)
--- NOTE | 2024-07-05 17:48 | XRay Report ---
EXAM: Radiograph of the Chest 1 View INDICATION: Chest pain TECHNIQUE: Frontal view of the chest. COMPARISON: 06/20/2020 FINDINGS: Lungs and pleural spaces: No consolidation or pulmonary edema. No pleural effusion or pneumothorax. Heart: Shape and configuration within normal limits allowing for technique. Mediastinum: Normal contour. Bones/joints: No fracture, erosion or dislocation. Soft tissues: No abnormality noted. No radiopaque foreign body noted. Upper abdomen: No abnormality noted. IMPRESSION: No acute cardiopulmonary disease. ACT 112: N/A Electronically signed by Klaudia Almendarez 07-05-2024 5:48 PM
[2024-07-05] MEDS: OPTIRAY 320 125ml IV ONE (19:38)
--- NOTE | 2024-07-05 20:04 | History & Physical Report ---
Date of Service July 05, 2024 Assessment & Plan (1) Diabetes mellitus with hypoglycemia: (2) Cough: (3) Chest pain: (4) GERD (gastroesophageal reflux disease): (5) Alzheimer's dementia: Plan 74-year-old female with history of diabetes, hyper lipidemia, GERD and Alzheimer's presenting with approximately 9 days of URI symptomsdry cough with some chest heaviness And shortness of breath. Patient with diaphoresis and shaking today. #Diaphoresis and shakingthought secondary to low blood sugars. Patient's blood sugar = 75 in the ER. Patient and daughter endorse that her blood sugars usually run 200-300. It is reasonable to think that she is symptomatic at a level of 75. She reports compliance with her insulin and is written for U300 Toujeo 78 units daily as well as metformin. Last hemoglobin A1c on record = 7.1 from 2022. Patient was administered apple juice and pan crackers in the ER with improvement in her symptoms. Repeat blood sugar = 121 Daughter endorses that last time patient was ill with an upper respiratory infection her blood sugar dropped precipitously which caused seizure Admit to medical with telemetry Check blood sugar every 2 hours Glargine 25 units twice daily with insulin sliding scale. Will set higher parameters for goal blood sugar while [id number] Pharmacy glycemic management consult appreciated Check A1c in the morning #Coughpatient diagnosed with acute bronchitis at an outside facility. Was prescribed Levaquin 750 mg p.o. daily which she has been compliant with. Continue Levaquin 750 mg p.o. daily Tessalon 100 mg p.o. 3 times daily as needed for cough Tylenol as needed for pain or fever Albuterol neb every 2 hours as needed for shortness of breath or wheeze #Chest painlikely in setting of acute bronchitis. Some reproducibility on physical exam. EKG with no acute ischemic changes. Troponin x 2 within normal limits. CTA of the chest with no acute PE Tylenol as needed for pain or fever #Alzheimer's dementiapatient is able to answer questions appropriately and follow commands Frequent orientation, delirium prevention strategies Maintenance of sleep-wake cycle were able Continue trazodone History of Present Illness Chief Complaint: shaking, diaphoresis, cough, chest pressure Primary Care Provider: Jessica Dan Shala Salguero is a 74-year-old female with history of diabetes, hyperlipidemia, GERD dementia presenting from home with several complaints. She reports that she has had cough and URI symptoms ongoing since June 26. Her cough is persistent, nonproductive. She has some ongoing central chest heaviness as well as chills and sweats. She denies abdominal pain/nausea/vomiting/diarrhea.Daughter reports that patient has had worsening shortness of breath over the last several days. She has been using her home inhalers with no improvement in symptoms. She started using nebulizer treatments yesterday 4 times daily again with no improvement. Patient was seen at [facility] and was diagnosed with acute bronchitis. She received a prescription for Levaquin 750 mg daily which she has been taking as prescribed. Today patient complaining specifically of profuse diaphoresis and feeling very shaky and jittery. In the ER patient is afebrile, hemodynamically stable. Adequate oxygenation on room air ER course: Tylenol Allergies Allergy/AdvReac Type Severity Reaction Status Date / Time codeine Allergy Unknown Itchiness Verified 06/11/23 13:53 erythromycin base Allergy Unknown Itchiness Verified 06/11/23 13:53 Penicillins Allergy Unknown Itchiness Verified 06/11/23 13:53 propoxyphene Allergy Unknown UNKNOWN Verified 06/11/23 13:53 sumatriptan Allergy Unknown Unknown Verified 06/11/23 13:53 adhesive tape AdvReac Mild "Rips skin Unverified 06/11/23 13:53 off with it" Home Medications Medication Instructions Recorded Confirmed Type cholecalciferol (vitamin D3) 50 3,000 unit PO QAM 06/20/20 07/05/24 History mcg (2,000 unit) tablet (Vitamin D3) fenofibrate micronized 134 mg 134 mg PO UD 06/20/20 07/05/24 History capsule metformin 500 mg tablet 500 mg PO UD 06/20/20 07/05/24 History rizatriptan 10 mg tablet 10 mg PO DIRECTED PRN Migraine 06/20/20 07/05/24 History Headache albuterol sulfate 2.5 mg/3 mL 2.5 mg inhalation Q6H PRN sob 03/15/23 07/05/24 History (0.083 %) solution for nebulization calcium 600 mg (as 1 tab PO UD 03/15/23 07/05/24 History carbonate)-vitamin D3 10 mcg (400 unit) tablet loratadine 10 mg tablet 10 mg PO DAILY 03/15/23 07/05/24 History pen needle, diabetic 32 gauge x #100 ea 03/15/23 03/15/23 History 1/4" (Easy Touch) trazodone 50 mg tablet 50 mg PO DAILY 03/15/23 07/05/24 History blood-glucose sensor (Dexcom G7 #1 ea 06/11/23 06/11/23 History Sensor device) pen needle, diabetic 32 gauge x #1,200 ea 06/11/23 06/11/23 History 5/32" (BD Carina 2nd Gen Pen Needle) albuterol sulfate 90 mcg/actuation 1 puff inhalation Q4H PRN Wheezing 07/05/24 07/05/24 History aerosol inhaler duloxetine 60 mg capsule,delayed 60 mg PO UD 07/05/24 07/05/24 History release insulin glargine U-300 conc 300 78 unit subcut DAILY 07/05/24 07/05/24 History unit/mL (1.5 mL) subcutaneous pen (Toujeo SoloStar U-300 Insulin) levofloxacin 750 mg tablet 750 mg PO DAILY 07/05/24 07/05/24 History Past Med/Surg History Problem List (Updated 07/05/24 @ 21:50 by Ritu Estes DO) Cough Chest pain (Acute) Osteoarthritis Memory loss Mild cognitive impairment Herpes genitalis Herpetic ulcer of vulva Metabolic encephalopathy GERD (gastroesophageal reflux disease) Diabetes mellitus with hypoglycemia Epigastric pain (Acute) Gastritis (Acute) Nausea and vomiting (Acute) Medical History Alzheimer's dementia Seasonal allergies Asthma Seizure-like activity Arthritis Peripheral neuropathy Migraine headache Muscle spasm Depression COVID-19 Diabetes HLD (hyperlipidemia) Surgical History H/O breast biopsy H/O: hysterectomy History of surgical removal of ganglion cyst Social History Smoking Status: Former smoker Hx Alcohol Use: No Hx Substance Use: No Preferred Language: Bhutanese Communication Ability: Effective Molding Fitter Required: No Beliefs That Will Affect Care: None Current Living Situation: Alone Feels Safe at Home: Yes Assistive Devices: None Review of Systems Review of Systems: All systems reviewed & are unremarkable except as noted in HPI & below Physical Exam Physical Exam: General: patient appears ill,. Diaphoretic and tremulous Skin: warm, moist, intact, no rashes or lesions HEENT: NC/AT, PERRL, EOMI, anicteric sclera, conjunctiva without injection, external ear normal to inspection and nontender, nares patent, moist mucus membranes, dentition intact, no oropharyngeal lesions, neck supple, trachea midline, no LAD, no thyromegaly, no JVD Heart: +S1/S2, regular, no m/r/g, some chest wall tenderness with palpation Lungs: equal air entry bilaterally, no rales/rhonchi/wheezes Abd: +BS, soft, NT/ND, no masses/organomegaly/ascites Ext: warm, 2+ pulses in UE/LE bilaterally, no clubbing/cyanosis or edema Neuro: nonfocal, patient AA&O x 4, speech intact, no facial droop, moving all extremities on command with equal strength 5/5 Results & Data Results & Data Vital Signs (Past 12 Hours) Vital Signs Temp Pulse Resp BP Pulse Ox O2 Del Method 07/05/24 19:48 99 H 20 176/118 H 92 07/05/24 18:51 84 24 155/106 H 100 07/05/24 18:12 100 H 20 154/87 H 99 07/05/24 17:30 83 24 143/84 H 98 07/05/24 16:22 94 H 07/05/24 16:17 97 Room Air 07/05/24 16:08 36.9 C 96 H 16 149/96 H 100 Room Air Laboratory Results Laboratory Results WBC 10.39 K/ul (4.8-10.8) 07/05/24 16:09 RBC 4.92 M/uL (4.20-5.40) 07/05/24 16:09 Hgb 14.5 g/dl (12.0-16.0) 07/05/24 16:09 Hct 42.3 % (37.0-47.0) 07/05/24 16:09 MCV 86.0 fL (80.0-100.0) 07/05/24 16:09 MCH 29.5 pg (25.0-34.0) 07/05/24 16:09 MCHC 34.3 g/dL (32.0-36.0) 07/05/24 16:09 RDW Std Deviation 42.4 fL (36.4-46.3) 07/05/24 16:09 RDW Coeff of Rufus 13.5 % (11.5-14.5) 07/05/24 16:09 Plt Count 358 K/uL (130-400) 07/05/24 16:09 MPV 9.5 fL (9.4-12.4) 07/05/24 16:09 Immature Gran % (Auto) 0.5 % 07/05/24 16:09 Neut % (Auto) 53.7 % 07/05/24 16:09 Lymph % (Auto) 36.1 % 07/05/24 16:09 [place] % (Auto) 7.7 % 07/05/24 16:09 Eos % (Auto) 1.5 % 07/05/24 16:09 Baso % (Auto) 0.5 % 07/05/24 16:09 Neut # (Auto) 5.58 K/uL (1.40-6.50) 07/05/24 16:09 Lymph # (Auto) 3.75 K/uL (1.20-3.40) H 07/05/24 16:09 [place] # (Auto) 0.80 K/uL (0.11-0.59) H 07/05/24 16:09 Eos # (Auto) 0.16 K/uL (0.00-0.50) 07/05/24 16:09 Baso # (Auto) 0.05 K/uL (0.00-0.20) 07/05/24 16:09 Immature Gran # (Auto) 0.05 K/uL (0.01-0.20) 07/05/24 16:09 Sodium 140 mmol/L (136-145) 07/05/24 16:09 Potassium 4.0 mmol/L (3.5-5.1) 07/05/24 16:09 Chloride 103 mmol/L (98-107) 07/05/24 16:09 Carbon Dioxide 29 mmol/L (21-32) 07/05/24 16:09 Anion Gap 8 (3-11) 07/05/24 16:09 BUN 15 mg/dl (6-23) 07/05/24 16:09 Creatinine 1.29 mg/dl (0.6-1.2) H 07/05/24 16:09 Est Cr Clr Drug Dosing 28.5 ml/min 07/05/24 16:09 eGFR 43.55 07/05/24 16:09 BUN/Creatinine Ratio 11.6 (10-20) 07/05/24 16:09 Glucose 111 mg/dl (70-99(Fasting)) H 07/05/24 16:09 POC Glucose 121 mg/dl (70-99) H 07/05/24 20:17 Calcium 10.0 mg/dl (8.6-10.3) 07/05/24 16:09 Magnesium 1.8 mg/dl (1.7-2.4) 07/05/24 20:05 Total Bilirubin 0.3 mg/dl (0.2-1.0) 07/05/24 16:09 AST 16 U/L (13-39) 07/05/24 16:09 ALT 9 U/L (7-52) 07/05/24 16:09 Alkaline Phosphatase 70 U/L (34-104) 07/05/24 16:09 Troponin I High Sens 6.0 pg/ml (0-14) 07/05/24 20:05 Total Protein 7.4 gm/dl (6.0-8.3) 07/05/24 16:09 Albumin 4.5 gm/dl (3.4-5.0) 07/05/24 16:09 Globulin 2.9 gm/dl (2.5-4.0) 07/05/24 16:09 Albumin/Globulin Ratio 1.6 (0.9-2) 07/05/24 16:09 Lipase 16 U/L (11-82) 07/05/24 16:09 Adenovirus (PCR) Not Detected (NotDetected) 07/05/24 16:45 B. pertussis DNA (PCR) Not Detected (NotDetected) 07/05/24 16:45 B.parapertussis DNA PCR Not Detected (NotDetected) 07/05/24 16:45 C. pneumoniae DNA (PCR) Not Detected (NotDetected) 07/05/24 16:45 Coronavirus OC43 (PCR) Not Detected (NotDetected) 07/05/24 16:45 Coronavirus HKU1 (PCR) Not Detected (NotDetected) 07/05/24 16:45 Coronavirus 229E (PCR) Not Detected (NotDetected) 07/05/24 16:45 SARS-CoV-2 (PCR) Not Detected (NotDetected) 07/05/24 16:45 Coronavirus NL63 (PCR) Not Detected (NotDetected) 07/05/24 16:45 Human Metapneumovir PCR Not Detected (NotDetected) 07/05/24 16:45 Influenza Type A (PCR) Not Detected (NotDetected) 07/05/24 16:45 Influenza Type B (PCR) Not Detected (NotDetected) 07/05/24 16:45 M. pneumoniae (PCR) Not Detected (NotDetected) 07/05/24 16:45 Parainfluenza 1 (PCR) Not Detected (NotDetected) 07/05/24 16:45 Parainfluenza 2 (PCR) Not Detected (NotDetected) 07/05/24 16:45 Parainfluenza 3 (PCR) Not Detected (NotDetected) 07/05/24 16:45 Parainfluenza 4 (PCR) Not Detected (NotDetected) 07/05/24 16:45 RSV (PCR) Not Detected (NotDetected) 07/05/24 16:45 Entero/Rhino (PCR) Not Detected (NotDetected) 07/05/24 16:45 Impressions Chest X-Ray 07/05/24 16:10 EXAM: Radiograph of the Chest 1 View INDICATION: Chest pain TECHNIQUE: Frontal view of the chest. COMPARISON: 06/20/2020 FINDINGS: Lungs and pleural spaces: No consolidation or pulmonary edema. No pleural effusion or pneumothorax. Heart: Shape and configuration within normal limits allowing for technique. Mediastinum: Normal contour. Bones/joints: No fracture, erosion or dislocation. Soft tissues: No abnormality noted. No radiopaque foreign body noted. Upper abdomen: No abnormality noted. IMPRESSION: No acute cardiopulmonary disease. ACT 112: N/A Electronically signed by Klaudia Almendarez 07-05-2024 5:48 PM Chest CTA 07/05/24 19:19 CT PULMONARY ANGIOGRAM. HISTORY: Chest pain TECHNIQUE: Enhanced CT examination of the chest was performed using pulmonary embolism protocol. IV CONTRAST: 100 mL of OMNIPAQUE 300 COMPARISON: Chest radiograph from same day. FINDINGS: PULMONARY ARTERIES: No filling defect identified to the segmental level. LYMPH NODES: No lymphadenopathy by size criteria. CARDIOVASCULAR: Mildly enlarged cardiac size. No pericardial effusion. No aortic aneurysm. There are coronary artery calcifications in keeping with coronary artery disease. MEDIASTINUM: No solid or cystic mediastinal masses. The esophagus is normally decompressed. LUNGS/PLEURA: The central tracheo-bronchial tree is patent. No mass or consolidation identified. No pleural effusion or pneumothorax. A 4 mm pulmonary nodule in the left lung base (series 2, image 25). BONES: No suspicious osseous lesions. VISUALIZED LOWER NECK: Unremarkable. VISUALIZED UPPER ABDOMEN: Unremarkable IMPRESSION: No pulmonary embolism identified to the segmental level. No acute intrathoracic process detected. 4 mm pulmonary nodule in the left lung base. Surveillance CT in 6 to 12 months may be recommended Electronically signed by Will Gonzalez 07-05-2024 9:03 PM ECG Additional Comments: EKG per my independent interpretation with normal sinus rhythm at 97 bpm, left axis deviation, SD = 150, QRS = 74, QTc = 467. Poor R wave progression. No change when compared with prior study PG Care Time/CCT Total # of Minutes Spent Total Time Spent with Patient: Total time spent is greater than 50% in coordination of care (as documented) at patient's floor/unit and/or counseling patient: Coding Level of Care Code 18076 INT INP/OBS CARE MIN Diagnoses Diabetes mellitus with hypoglycemia E11.649 Cough R05.9 Chest pain R07.9 GERD (gastroesophageal reflux disease) K21.9 Alzheimer's dementia G30.9; F02.80
[2024-07-05 20:40] LABS: Magnesium 1.8 mg/dl (1.7-2.4)
--- NOTE | 2024-07-05 21:03 | CT Scan Report ---
CT PULMONARY ANGIOGRAM. HISTORY: Chest pain TECHNIQUE: Enhanced CT examination of the chest was performed using pulmonary embolism protocol. IV CONTRAST: 100 mL of OMNIPAQUE 300 COMPARISON: Chest radiograph from same day. FINDINGS: PULMONARY ARTERIES: No filling defect identified to the segmental level. LYMPH NODES: No lymphadenopathy by size criteria. CARDIOVASCULAR: Mildly enlarged cardiac size. No pericardial effusion. No aortic aneurysm. There are coronary artery calcifications in keeping with coronary artery disease. MEDIASTINUM: No solid or cystic mediastinal masses. The esophagus is normally decompressed. LUNGS/PLEURA: The central tracheo-bronchial tree is patent. No mass or consolidation identified. No pleural effusion or pneumothorax. A 4 mm pulmonary nodule in the left lung base (series 2, image 25). BONES: No suspicious osseous lesions. VISUALIZED LOWER NECK: Unremarkable. VISUALIZED UPPER ABDOMEN: Unremarkable IMPRESSION: No pulmonary embolism identified to the segmental level. No acute intrathoracic process detected. 4 mm pulmonary nodule in the left lung base. Surveillance CT in 6 to 12 months may be recommended Electronically signed by Will Gonzalez 07-05-2024 9:03 PM
[2024-07-05] MEDS ORDERED: GLUCOSE 40% GEL 15 GM TUBE PO PRN (23:23)
[2024-07-05] MEDS ORDERED: GLUCAGON FOR INJ 1 MG VIAL SQ PRN (23:23)
[2024-07-05] MEDS ORDERED: PHARMACY GLYCEMIC MGMT CONSULT PRN (23:23)
[2024-07-05] MEDS ORDERED: CARBOHYDRATES FOR HYPOGLYCEMIA PO PRN (23:23)
[2024-07-05] MEDS ORDERED: DEXTROSE 50% 50 ML SYRINGE IV PRN (23:23)
[2024-07-05] MEDS ORDERED: ALBUTEROL 0.5% NEB SOLN 2.5 MG/0.5 ML VIAL NEB PRN (23:23)
[2024-07-05] MEDS ORDERED: GLUCOSE 10 TAB/TUBE PO PRN (23:23)
[2024-07-06] MEDS: INSULIN ASPART PER UNIT CHARGE SC SCH (00:40)
[2024-07-06] MEDS: traZODone HCL 50 MG TAB PO ONE (02:30)
[2024-07-06] MEDS: ACETAMINOPHEN 325 MG TAB PO PRN (06:07)
[2024-07-06 06:50] LABS: Hematocrit (blood only) 46.4 % (37.0-47.0); Hemoglobin 16.2 g/dl (12.0-16.0); Mean Corpuscular Hemoglobin 29.9 pg (25.0-34.0); Mean Corpuscular Hgb Conc 34.9 g/dL (32.0-36.0); Mean Corpuscular Volume 85.8 fL (80.0-100.0); Mean Platelet Volume 9.6 fL (9.4-12.4); Platelet Count 354 K/uL (130-400); RDW Coefficient of Variation 13.5 % (11.5-14.5); RDW Standard Deviation 41.6 fL (36.4-46.3); Red Blood Count 5.41 M/uL (4.20-5.40)
[2024-07-06] MEDS: CeleBREX 200 MG CAP PO ONE (07:04)
[2024-07-06 07:16] LABS: BUN Creatinine Ratio 11.6 (10-20); Calcium 10.3 mg/dl (8.6-10.3); Creatinine Clr Calc Pharmacy 39.1 ml/min; Potassium 3.9 mmol/L (3.5-5.1)
[2024-07-06 07:24] LABS: Estimated Average Glucose 237 mg/dl; Hemoglobin A1C 9.9 % (4.5-5.6)
[2024-07-06] MEDS: DULoxetine HCL 60 MG CAP PO SCH (08:49)
[2024-07-06] MEDS: levoFLOXacin 750 MG TAB PO SCH (08:49)
[2024-07-06] MEDS ORDERED: LANTUS PER UNIT CHARGE SQ SCH (09:00)
--- NOTE | 2024-07-06 09:32 | Electrocardiogram Report ---
Test Reason : Blood Pressure : */* mmHG Vent. 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
--- NOTE | 2024-07-06 11:05 | Pharmacy Report ---
Pharmacy Glycemic Short Note 2 - Date of Service July 06, 2024 - Glycemic Short BSG Results (Last 24 hours): 07/05/24 07/05/24 07/05/24 16:09 19:40 20:17 Glucose 111 H POC Glucose 75 121 H 07/06/24 07/06/24 07/06/24 00:25 01:51 06:00 Glucose 56 L POC Glucose 183 H 142 H 07/06/24 07/06/24 07:22 08:15 Glucose POC Glucose 72 119 H OUTPATIENT ANTIDIABETIC REGIMEN: * Toujeo 78 units SC daily * Metformin 500 mg PO daily A1c = 9.9% (07/06/24) ASSESSMENT: * 74 yo with PMH of diabetes, hyperlipidemia, GERD, and Alzheimer's presenting with URI symptoms, SOB, diaphoresis and shaking. BSG of 75 mg/dL in the ER. Family reports BSG typically runs around 200-300 mg/dL. BSG did trend up to 121 and 183 mg/dL throughout the evening. Patient received a total of 2 units of Novolog 4 PM. * Fasting BSG 07/06 resulted at 72 mg/dL thus it was decided to delay resumption of basal insulin until further evidence of BSG recovery. Will order basal insulin per BGS scale to start this evening. * Will loosen Novolog parameters due to hypoglycemia following breakfast insulin coverage. PLAN FOR INPATIENT GLYCEMIC CONTROL: * Hold outpatient oral diabetes medications * Basal insulin * Lantus 0-5-10 units SQ BID (only to be given for BSG > 140 mg/dL) * Bolus insulin * NovoLog per scale ACHS or Q6hrs while NPO * Goal Range: Low 120 mg/dL - High 160 mg/dL * Correction Factor: 45 mg/dL/unit * Nutritional / Prandial insulin per carb ratio of 1 unit per 15 grams CHO consumed
--- NOTE | 2024-07-06 12:21 | Hospitalist Progress Note ---
Date of Service July 06, 2024 Assessment & Plan (1) Diabetes mellitus with hypoglycemia: (2) Cough: (3) Chest pain: (4) GERD (gastroesophageal reflux disease): (5) Alzheimer's dementia: Plan 74-year-old female with history of diabetes, hyper lipidemia, GERD and Alzheimer's. She presented with approximately 9 days of URI symptoms dry cough with some chest heaviness and shortness of breath. Patient with diaphoresis and shaking on day of presentation and was found to have a blood sugar of 75 in the ER. Patient and daughter endorse that her blood sugars usually run 200-300. It is reasonable to think that she is symptomatic at a level of 75. She reports compliance with her insulin and is written for U300 Toujeo 78 units daily as well as metformin. Daughter endorses that last time patient was ill with an upper respiratory infection her blood sugar dropped precipitously which caused seizure. Patient was administered apple juice and pan crackers in the ER with improvement in her symptoms. #Hypoglycemia, DM T2 with associated diaphoresis and tremors. A1c elevated at 9.9% Home diabetic regimen of Toujeo 78 units SC daily and Metformin 500 mg PO daily Pharmacy glycemic management consult appreciated. Will set higher parameters for goal blood sugar while inpatient: 140-180 Will delay resumption of basal insulin until further data available #Cough/Acute bronchitis patient diagnosed with acute bronchitis at an outside facility. Was prescribed Levaquin 750 mg p.o. daily which she has been compliant with Continue Levaquin 750 mg p.o. daily Continue supportive measures of Tylenol as needed for pain or fever, Tessalon 100 mg p.o. 3 times daily as needed for cough Albuterol neb every 2 hours as needed for shortness of breath or wheeze #Chest pain likely in setting of acute bronchitis Some reproducibility on physical exam. EKG with no acute ischemic changes. Troponin x 2 within normal limits CTA of the chest with no acute PE Tylenol as needed for pain or fever #Alzheimer's dementia patient is able to answer questions appropriately and follow commands Frequent orientation, delirium prevention strategies, maintenance of sleep-wake cycle Continue trazodone Dispo: Anticipate discharge in next 24 hours after more stabilized blood sugar values Admission and Anticipated Discharge Date Admission Date: July 05, 2024 Subjective Patient seen and evaluated at bedside. She reports feeling "shaky" at the oment, similar to though not as bad as how she felt yesterday evening. Asked RN to check BSG and provide juice if needed. She denies chest pain, shortness of breath, difficulty breathing, headache, nausea. She continues to have a dry non-productive cough. We discussed the result of her A1c and needing further data points to properly adjust her insulin regimen. Will keep overnight for further monitoring and adjustment. She denies any additional complaints or concerns at this time. Physical Exam Physical Exam: General: No acute distress, nondiaphoretic, well-developed, well-nourished. Cardiac: Mild tachycardic rate in 90s and regular rhythm without murmurs gallops or rubs. Pulm: Clear to auscultation bilaterally without wheezes, rales or rhonchi. Normal respiratory effort. 93% on room air. Abdominal: Soft, nontender, nondistended. Bowel sounds present. Neuro: A&O x3. No focal neurological deficits. Results & Data Results & Data Vital Signs (Past 12 Hours) Vital Signs Temp Pulse Pulse Resp BP Pulse Ox O2 Del Method 07/06/24 11:33 98.2 F 95 H 18 149/80 H 93 Room Air 07/06/24 08:28 98.2 F 92 H 16 125/72 95 Room Air 07/06/24 07:16 Room Air 07/06/24 06:57 91 H Laboratory Results Reviewed CBC with differential Reviewed BMP Reviewed A1c Diagnostic Findings Reviewed CXR Reviewed Chest CTA PG Care Time/CCT Total # of Minutes Spent Total Time Spent with Patient: Total time spent is greater than 50% in coordination of care (as documented) at patient's floor/unit and/or counseling patient: Coding Level of Care Code 63605 SUB INP/OBS CARE 2/35MIN Diagnoses Diabetes mellitus with hypoglycemia E11.649 Cough R05.9 Chest pain R07.9 GERD (gastroesophageal reflux disease) K21.9 Alzheimer's dementia G30.9; F02.80
[2024-07-06] MEDS: traZODone HCL 50 MG TAB PO SCH (20:38)
[2024-07-06] MEDS: LANTUS PER UNIT CHARGE SQ SCH (20:38)
[2024-07-06 21:09] LABS: Appearance Urine Cloudy (Clear); Bacteria Urine Automated None Seen (None Seen); Bilirubin Urine Negative (Negative); Blood Urine Trace (Negative); Cast Urine Automated 0-2 /lpf (0-2); Color Urine Yellow; Epithelial Cell Urine Auto 0-2 /hpf (0-2); Glucose Urine UA 3+ (Negative); Ketones Urine Negative (Negative); Leukocyte Esterase Urine 1+ (Negative); Nitrite Urine Negative (Negative); Protein Urine Negative (Negative); RBC Urine Automated >20 /hpf (0-2); Specific Gravity Urine 1.021 (1.000-1.030); Urobilinogen Urine Negative (Negative); pH Urine 6.5 (4.5-7.5)
[2024-07-07 06:25] LABS: Hematocrit (blood only) 46.3 % (37.0-47.0); Hemoglobin 15.7 g/dl (12.0-16.0); Mean Corpuscular Hemoglobin 29.5 pg (25.0-34.0); Mean Corpuscular Hgb Conc 33.9 g/dL (32.0-36.0); Mean Platelet Volume 9.4 fL (9.4-12.4); Platelet Count 311 K/uL (130-400); RDW Coefficient of Variation 13.9 % (11.5-14.5); RDW Standard Deviation 43.8 fL (36.4-46.3); Red Blood Count 5.32 M/uL (4.20-5.40); White Blood Count 7.83 K/ul (4.8-10.8)
--- NOTE | 2024-07-07 11:33 | Hospitalist Progress Note ---
Date of Service July 07, 2024 Assessment & Plan (1) Diabetes mellitus with hypoglycemia: (2) Cough: (3) Chest pain: (4) GERD (gastroesophageal reflux disease): (5) Alzheimer's dementia: Plan 74-year-old female with history of diabetes, hyper lipidemia, GERD and Alzheimer's. She presented with approximately 9 days of URI symptoms dry cough with some chest heaviness and shortness of breath. Patient with diaphoresis and shaking on day of presentation and was found to have a blood sugar of 75 in the ER. Patient and daughter endorse that her blood sugars usually run 200-300. It is reasonable to think that she is symptomatic at a level of 75. She reports compliance with her insulin and is written for U300 Toujeo 78 units daily as well as metformin. Daughter endorses that last time patient was ill with an upper respiratory infection her blood sugar dropped precipitously which caused seizure. Patient was administered apple juice and pan crackers in the ER with improvement in her symptoms. #Hypoglycemia, DM T2 with associated diaphoresis and tremors. A1c elevated at 9.9% Home diabetic regimen of Toujeo 78 units SC daily and Metformin 500 mg PO daily Pharmacy glycemic management consult appreciated. Will set higher parameters for goal blood sugar while inpatient: 140-180 Requiring significantly less insulin here compared to home regimen #Cough/Acute bronchitis patient diagnosed with acute bronchitis at an outside facility. Was prescribed Levaquin 750 mg p.o. daily which she has been compliant with Continue Levaquin 750 mg p.o. daily Continue supportive measures of Tylenol as needed for pain or fever, Tessalon 100 mg p.o. 3 times daily as needed for cough, fluter valve Albuterol neb every 2 hours as needed for shortness of breath or wheeze PT/OT evals ordered - patient reports generalized weakness; lives at home alone and worried about returning home feeling this weak #Chest pain likely in setting of acute bronchitis Some reproducibility on physical exam. EKG with no acute ischemic changes. Troponin x 2 within normal limits CTA of the chest with no acute PE Mild tachycardia - consider rate control medication outpatient if persists Tylenol as needed for pain or fever #Alzheimer's dementia patient is able to answer questions appropriately and follow commands Frequent orientation, delirium prevention strategies, maintenance of sleep-wake cycle Continue trazodone Dispo: Now pending PT/OT evals. Continue to monitor BSG for adjustments to insulin regimen Discussed diabetic regimen with pharmacy Ordered PT/OT Admission and Anticipated Discharge Date Admission Date: July 05, 2024 Subjective Patient seen and evaluated at bedside. She reports feeling worse today, describing generalized malaise and weakness. She denies symptoms of hypoglycemia including diaphoresis or tremors. She denies headache, shortness of breath, or chest pain. She continues to have a dry non-productive cough, and is using her flutter valve routinely. She reports she lives at home alone and worries about returning home feeling this weak. We discussed getting PT/OT to evaluate her. No additional complaints or concerns at this time. Physical Exam Physical Exam: General: No acute distress, nondiaphoretic, well-developed, well-nourished. Cardiac: Mild tachycardic rate in 100s and regular rhythm without murmurs gallops or rubs. Pulm: Clear to auscultation bilaterally without wheezes, rales or rhonchi. Normal respiratory effort. 93% on room air. Abdominal: Soft, nontender, nondistended. Bowel sounds present. Neuro: A&O x3. No focal neurological deficits. Results & Data Results & Data Vital Signs (Past 12 Hours) Vital Signs Temp Pulse Pulse Resp BP Pulse Ox O2 Del Method 07/07/24 09:56 Room Air 07/07/24 07:38 98.2 F 104 H 20 121/77 93 Room Air 07/07/24 07:21 104 H 07/07/24 04:55 98.1 F 93 H 18 164/87 H 96 Room Air 07/07/24 00:10 98.1 F 118 H 18 129/81 96 Room Air Laboratory Results Reviewed CBC Reviewed POC glucoses Reviewed UA PG Care Time/CCT Total # of Minutes Spent Total Time Spent with Patient: Total time spent is greater than 50% in coordination of care (as documented) at patient's floor/unit and/or counseling patient: Coding Level of Care Code 26136 SUB INP/OBS CARE 2/35MIN Diagnoses Diabetes mellitus with hypoglycemia E11.649 Cough R05.9 Chest pain R07.9 GERD (gastroesophageal reflux disease) K21.9 Alzheimer's dementia G30.9; F02.80
[2024-07-07] MEDS: LANTUS PER UNIT CHARGE SQ SCH (12:33)
--- NOTE | 2024-07-07 14:20 | Pharmacy Report ---
Pharmacy Glycemic Short Note 2 - Date of Service July 07, 2024 - Glycemic Short BSG Results (Last 24 hours): 07/06/24 07/06/24 07/06/24 15:20 17:12 20:28 POC Glucose 202 H 197 H 205 H 07/07/24 07/07/24 07:57 11:58 POC Glucose 138 H 236 H OUTPATIENT ANTIDIABETIC REGIMEN: * Toujeo 78 units SC daily * Metformin 500 mg PO daily A1c = 9.9% (07/06/24) ASSESSMENT: 07/07/24: * Blood sugars labile yesterday, ranging 60-205 mg/dL * Received 21 units of insulin yesterday (10 units of basal and 11 units of prandial/correctional bolus) * Significant difference between inpatient and outpatient insulin dosing thus far * Will make only conservative adjustments today given hypoglycemia yesterday 07/06/24: * 74 yo with PMH of diabetes, hyperlipidemia, GERD, and Alzheimer's presenting with URI symptoms, SOB, diaphoresis and shaking. BSG of 75 mg/dL in the ER. Family reports BSG typically runs around 200-300 mg/dL. BSG did trend up to 121 and 183 mg/dL throughout the evening. Patient received a total of 2 units of Novolog 4/ PM. * Fasting BSG 07/06 resulted at 72 mg/dL thus it was decided to delay resumption of basal insulin until further evidence of BSG recovery. Will order basal insulin per BGS scale to start this evening. * Will loosen Novolog parameters due to hypoglycemia following breakfast insulin coverage. PLAN FOR INPATIENT GLYCEMIC CONTROL: * Hold outpatient oral diabetes medications * Basal insulin * Lantus 0-5-10 units SQ BID (see EHR for details) * Bolus insulin * NovoLog per scale ACHS or Q6hrs while NPO * Goal Range: Low 120 mg/dL - High 150 mg/dL * Correction Factor: 40 * mg/dL/unit * Nutritional / Prandial insulin per carb ratio of 1 unit per 12 grams CHO consumed
[2024-07-07] MEDS: CeleBREX 200 MG CAP PO ONE (20:11)
[2024-07-07] MEDS ORDERED: LANTUS PER UNIT CHARGE SQ SCH (21:00)
--- NOTE | 2024-07-08 07:39 | Hospitalist Progress Note ---
Date of Service July 08, 2024 Assessment & Plan (1) Diabetes mellitus with hypoglycemia: (2) Cough: (3) Chest pain: (4) GERD (gastroesophageal reflux disease): (5) Alzheimer's dementia: Plan 74-year-old female with history of diabetes, hyper lipidemia, GERD and Alzheimer's. She presented with approximately 9 days of URI symptoms dry cough with some chest heaviness and shortness of breath. Patient with diaphoresis and shaking on day of presentation and was found to have a blood sugar of 75 in the ER. Patient and daughter endorse that her blood sugars usually run 200-300. It is reasonable to think that she is symptomatic at a level of 75. She reports compliance with her insulin and is written for U300 Toujeo 78 units daily as well as metformin. Daughter endorses that last time patient was ill with an upper respiratory infection her blood sugar dropped precipitously which caused seizure. Patient was administered apple juice and pan crackers in the ER with improvement in her symptoms. #Hypoglycemia, DM T2 with associated diaphoresis and tremors with BSG in 70s, without awareness prior. A1c elevated to 9.9 Home regimen Toujeo 78u SC daily and metformin 500mg daily * Further discussion with patient 07/08 -- she reports had dexcom in past but no longer using. Prior admission 2020 w/ COVID/seizures and hypoglycemia but was on sulfonylurea at that time. Further discussion with patient she was on Moujaro vs Ozempic in the fall/winter but was stopped due to GI issues/constipation. 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 Utilizing significantly less insulin here compared to home (also making lots of sweet tea at home which likely causing elevations) and parameters set higher w/ goal 140-180s Pharmacy consulted for assistance, DM educator as well BSGs have been stable but in 200s today - appreciate pharmacy/glycemic consult and messaged about Jardiance use to see about potentially resuming/trending w/ resumption vs holding off Further discussion also w/ req to switch endocrinology provider and Cm notified to see if any openings closer to her home, ?[place] location Monitor BSG/adjustment to insulin at dc recommended pending trend and highly encouraged to check BSGs more frequently and have PCP Per DM educator "She reported having additional sensors at home but she was unsure if she has the tank truck milk receiver/reader at home" -- "I told her to notify her provider if she cannot find this so that they can order her a new one. Her phone is not compatible to download the renny" Will need continued f/u at dc PT/OT consults pending #Cough/Acute bronchitis recent dx acute bronchitis at outside facility and rx levaquin daily (reported compliance w/ such), ?reflux related - levaquin renally dosed and has another day left for course - remains on RA, tylenol available as well as tessalon pears. Continue incentive spirometer/flutter valve - Mag 1.7, 1gm IV ordered Albuterol neb every 2 hours as needed for shortness of breath or wheeze Also notable below to be on PPI per GI prior reports and added pepcid PT/OT evals ordered - patient reports generalized weakness; lives at home alone and worried about returning home feeling this weak #Chest pain likely in setting of acute bronchitis, some reproducibility on exam. EKG w/o acute ischemic changes and trop negative x 2. CTA negative for PE, does have some mild tachycardia and considering BB if persists but will monitor w/ mag replacement. Has been NSR, some aspect of anxiety suspected as well Patient w/ reports chest heaviness on admission w/ prior GI reports w/ recs for PPI indefinitely. Add pepcid for now but do not see recent rx and has not been on such, also on celebrex/naproxen in past for OA No Cp 07/08 and will monitor w/ ongoing pepcid #Alzheimer's dementia patient is able to answer questions appropriately and follow commands and continues on trazodone for sleep. TSH/B12 wnl - Frequent orientation/delirium prevention strategies. Dispo: continued inpatient stay, PT/OT consults pending consideration to HOLD Jardiance at dc until f/u discussions w/ PCP vs resuming inpatient and monitoring BSGs Admission and Anticipated Discharge Date Admission Date: July 07, 2024 Supervising Physician Co-Signing Physician Notes The patient was not seen by me. The chart was reviewed. Case discussed with TRICIA Montemayor. Agree with assessment and plan Subjective Eval this morning, pepcid ordered for possible reflux, no CP reported during eval and will continue. Discussed insulin and oral meds -- she reports she's been on that "weight loss shot" in the fall/winter but was discontinued. Also rx linzess for constipation and has issues moving bowels at times for a week at a time. Got prune juice and had +BM today. Discussed she also had Mary monitor in the past but no longer covered? She reports recent rx for Jardiance and has been taking daily. Discussed possible issue with oral agents - she reports following w/ a "sugar doctor" in [place] but wanting to switch. Will see about CM assisting w arranging f/u appt. Results & Data Results & Data Vital Signs (Past 12 Hours) Vital Signs Temp Pulse Pulse Resp BP Pulse Ox O2 Del Method 07/08/24 07:31 106 H 07/08/24 03:35 36.7 C 115 H 18 106/69 95 Room Air 07/07/24 23:55 36.9 C 111 H 18 131/77 92 Room Air 07/07/24 22:10 110 H 07/07/24 21:57 36.8 C 113 H 18 134/81 93 Room Air PG Care Time/CCT Total # of Minutes Spent Total Time Spent with Patient: Total time spent is greater than 50% in coordination of care (as documented) at patient's floor/unit and/or counseling patient: Coding Level of Care Code 76546 SUB INP/OBS CARE 3/50MIN Diagnoses Diabetes mellitus with hypoglycemia E11.649 Cough R05.9 Chest pain R07.9 GERD (gastroesophageal reflux disease) K21.9 Alzheimer's dementia G30.9; F02.80
[2024-07-08] MEDS: FAMOTIDINE 20 MG TAB PO SCH (09:33)
[2024-07-08 11:05] LABS: Calcium 9.4 mg/dl (8.6-10.3); Magnesium 1.7 mg/dl (1.7-2.4); Potassium 4.1 mmol/L (3.5-5.1)
[2024-07-08 11:11] LABS: BUN Creatinine Ratio 27.6 (10-20); Creatinine Clr Calc Pharmacy 38.7 ml/min
[2024-07-08 11:21] LABS: Thyroid Stimulating Hormone 1.09 uIu/ml (0.300-4.500)
[2024-07-08] MEDS ORDERED: RIZATRIPTAN BENZOATE 10 MG TAB PO PRN (14:43)
[2024-07-08] MEDS: LORATADINE 10 MG TAB PO SCH (16:59)
[2024-07-08] MEDS: MAGNESIUM SULFATE / D5W 1 GM/100 ML BAG IV ONE (16:59)
--- NOTE | 2024-07-09 07:37 | Hospitalist Progress Note ---
Date of Service July 09, 2024 Assessment & Plan (1) Diabetes mellitus with hypoglycemia: (2) Cough: (3) Chest pain: (4) GERD (gastroesophageal reflux disease): (5) Alzheimer's dementia: Plan 74-year-old female with history of diabetes, hyper lipidemia, GERD and Alzheimer's. She presented with approximately 9 days of URI symptoms dry cough with some chest heaviness and shortness of breath. Patient with diaphoresis and shaking on day of presentation and was found to have a blood sugar of 75 in the ER. Patient and daughter endorse that her blood sugars usually run 200-300. It is reasonable to think that she is symptomatic at a level of 75. She reports compliance with her insulin and is written for U300 Toujeo 78 units daily as well as metformin. Daughter endorses that last time patient was ill with an upper respiratory infection her blood sugar dropped precipitously which caused seizure. Patient was administered apple juice and pan crackers in the ER with improvement in her symptoms. #Hypoglycemia, DM T2 with associated diaphoresis and tremors with BSG in 70s, without awareness prior. A1c elevated to 9.9. Home regimen Toujeo 78u SC daily and metformin 500mg daily Further discussion with patient 07/08 -- she reports had dexcom in past but no longer using --> Prior admission 2020 w/ COVID/seizures and hypoglycemia but was on sulfonylurea at that time. Further discussion with patient she was on Moujaro or Ozempic in the fall/winter but was stopped due to GI issues/constipation but also notes has been on JARDIANCE since as well and could contribute Utilizing significantly less insulin here compared to home (also making lots of sweet tea at home which likely causing elevations) and parameters set higher w/ goal 140-180s however improvement in PO intake and pharmacy on consult and INCREASING BASAL/BOLUS insulin today (07/09) and will monitor. 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 [facility] pending [facility] serial measurements and PO intake. Metformin to resume this evening. Likely hold jardiance at [facility] until discuss w/ PCP in f/u PT/OT consulted and rec rehab, [facility] referral in place CM working to see about ref to [facility] #Chest pain/tachycardia in setting of bronchitis w/ some reproducibility on exam. Reported "chest heaviness" on admission Trop negative x 2, EKG w/o ischemic changes. CTA negative for PE. Has been NSR w/ sinus tach on monitor PRIOR REVIEW EGD [address] Mon indicative for gastritis and rec for PPI INDEFINITELY -> Had not been ordered PPI or pepcid on admission Pepcid added 4/15 and no CP reported but today having reflux/epigastric pain and PPI IVP x 1 ordered Added protonix 40mg PO daily and would continue at [facility], recent use Celebrex/naproxen for joint pain/arthritis and reported gastritis in past w/ aspirin use (did get one time celebrex for headache 2 nights ago) -Also added low dose metoprolol 12.5mg BID added today for HR 110-120s--> HR improved and will monitor on such but likely rx at [facility] #Cough/Bronchitis Recent diagnosis and on Levaquin (renally dosed) and to complete course (1 more dose). No fever/hypoxia and remains on room air. Tessalon pearls available (hasn't used), albuterol neb (hasn't used). Mag stable 1.8 No sx reported 4/15 of CP/cough but did add pepcid as below for prior GI rec (also recent Celebrex/NSAID use) however w/ increased discomfort after eating today/reflux suspected and PPI as outlined. Did add mucinex BID for mucus/congestion possible. IS encouraged/re-ordered as did not note one in room with patient. CXR for completeness. #Alzheimer's dementia Patient is able to answer questions appropriately and follow commands and continues on trazodone for sleep. TSH/B12 wnl. Additiona trazodone 50mg HS prn if difficult with sleep this evening Continue frequent orientation/delirium prevention strategies. Dispo: continued inpatient stay and therapy recs for rehab. Ref to [facility] placed and CM following Insulin dosing TBD at [facility] pending repeat measurements/needs, will need new rx for Dexcom 7 housekeeper/laundry assistant [facility] and consider holding PO Jardiance. Will plan to resume her metformin today to get back on home regimen Endo ref for [facility] F/u CXR, mucinex BID added and tessalon pearls/neb available if needed Admission and Anticipated Discharge Date Admission Date: July 07, 2024 Supervising Physician Co-Signing Physician Notes The patient was not seen by me. The chart was reviewed. Case discussed with TRICIA Montemayor. Agree with assessment and plan Subjective Eval this afternoon, resting in bed. Didn't get much sleep due to neighbor. No significant sweating or tremor reported, BSGs stable. Did resume pepcid yesterday however does report to have on life long pill (as discussed yesterday) and will give protonix IVP x 1 and resume PO QAM for tomorrow. PT/OT rec for rehab, Cm following ref to [facility] in place and discussed will follow up on such. Questions/concerns addressed at htis time. Physical Exam 2 Physical Exam: General: 74yo female laying in bed, mask on while sleeping, NAD, reports feeling pretty well except some mild central/epigastric discomfort/reports reflux HEENT; head atraumatic, normocephalic, mmm, trachea midline Resp: even/unlabored, faint bibasilar crackles, no wheezing/rales, on room air, occ cough CV: regular, tachy to 110-120s this morning, sinus, no significant m/r/g, no pitting edema/calf tenderness GI: +BS, soft, mild tenderness epigastric region without rebound or guarding : no nazario MSK/Neuro: generalized weakness but nonfocal, answering questions appropriately Psych: alert to person/place/time, cooperative but fatigued appearing (didn't get good sleep) Results & Data Results & Data Vital Signs (Past 12 Hours) Vital Signs Temp Pulse Pulse Resp BP Pulse Ox O2 Del Method 07/09/24 07:00 108 H 07/09/24 02:27 36.7 C 107 H 16 120/79 96 Room Air 07/08/24 22:31 36.6 C 98 H 18 115/78 97 Room Air 07/08/24 22:17 101 H 07/08/24 20:00 Room Air Laboratory Results 07/07/24 05:34 07/09/24 09:47 Mag 1.8 PG Care Time/CCT Total # of Minutes Spent Total Time Spent with Patient: Total time spent is greater than 50% in coordination of care (as documented) at patient's floor/unit and/or counseling patient: Coding Level of Care Code 53712 SUB INP/OBS CARE 350MIN Diagnoses Diabetes mellitus with hypoglycemia E11.649 Cough R05.9 Chest pain R07.9 GERD (gastroesophageal reflux disease) K21.9 Alzheimer's dementia G30.9; F02.80
[2024-07-09] MEDS: LANTUS PER UNIT CHARGE SQ SCH (08:17)
[2024-07-09] MEDS: METOPROLOL TARTRATE 25 MG TAB PO SCH (09:17)
[2024-07-09] MEDS: ONDANSETRON INJ 2 MG/ML 2 ML VIAL IV PRN (09:51)
[2024-07-09 10:29] LABS: Calcium 9.7 mg/dl (8.6-10.3); Magnesium 1.8 mg/dl (1.7-2.4); Potassium 4.1 mmol/L (3.5-5.1)
[2024-07-09 10:35] LABS: BUN Creatinine Ratio 26.4 (10-20); Creatinine Clr Calc Pharmacy 38.7 ml/min
--- NOTE | 2024-07-09 12:51 | Pharmacy Report ---
Pharmacy Glycemic Short Note 2 - Date of Service July 09, 2024 - Glycemic Short BSG Results (Last 24 hours): 07/08/24 07/08/24 07/09/24 17:10 20:11 08:10 Glucose POC Glucose 155 H 258 H 159 H 07/09/24 07/09/24 09:47 11:57 Glucose 280 H POC Glucose 275 H OUTPATIENT ANTIDIABETIC REGIMEN: * Toujeo 78 units SC daily * Metformin 500 mg PO daily A1c = 9.9% (07/06/24) ASSESSMENT: 07/09/24: * Blood sugars trended up throughout the day yesterday w/ elevated fasting blood sugar this morning (159 mg/dL) * Will increase basal insulin and bolus carb ratio today * Patient is awaiting placement 07/07/24: * Blood sugars labile yesterday, ranging 60-205 mg/dL * Received 21 units of insulin yesterday (10 units of basal and 11 units of prandial/correctional bolus) * Significant difference between inpatient and outpatient insulin dosing thus far * Will make only conservative adjustments today given hypoglycemia yesterday 07/06/24: * 74 yo with PMH of diabetes, hyperlipidemia, GERD, and Alzheimer's presenting with URI symptoms, SOB, diaphoresis and shaking. BSG of 75 mg/dL in the ER. Family reports BSG typically runs around 200-300 mg/dL. BSG did trend up to 121 and 183 mg/dL throughout the evening. Patient received a total of 2 units of Novolog 4/12 PM. * Fasting BSG 07/06 resulted at 72 mg/dL thus it was decided to delay resumption of basal insulin until further evidence of BSG recovery. Will order basal insulin per BGS scale to start this evening. * Will loosen Novolog parameters due to hypoglycemia following breakfast insulin coverage. PLAN FOR INPATIENT GLYCEMIC CONTROL: * Hold outpatient oral diabetes medications * Basal insulin * Lantus 10 units SC x 1 this morning * Lantus 15 units SC x 1 this afternoon * Lantus 0-5-10 units SC HS (see protocol text) * Reassess in AM * Bolus insulin * NovoLog per scale ACHS or Q6hrs while NPO * Goal Range: Low 120 mg/dL - High 150 mg/dL * Correction Factor: 40 mg/dL/unit * Nutritional / Prandial insulin per carb ratio of 1 unit per 10 grams CHO consumed
[2024-07-09] MEDS: LANTUS PER UNIT CHARGE SQ ONE ×2 (13:01→21:50)
[2024-07-09] MEDS ORDERED: traZODone HCL 50 MG TAB PO PRN (14:19)
[2024-07-09] MEDS: PANTOprazole 40 MG/10 ML SYR IV ONE (14:24)
--- NOTE | 2024-07-09 17:20 | XRay Report ---
Chest radiograph, one view History: Chest pain Comparison: June 20, 2020 Findings: Single AP view of the chest performed. No focal consolidation or pleural effusion. No pneumothorax. The cardiomediastinal silhouette is within normal limits. Normal pulmonary vascularity. No evidence for lymphadenopathy. No visualized bony or soft tissue abnormality. Impression: Normal chest radiograph Electronically signed by Danny Jacobson 07-09-2024 5:20 PM
[2024-07-09] MEDS: guaiFENesin 600 MG TABCR PO SCH (17:36)
[2024-07-09] MEDS: metFORMIN HCL ER 500 MG TABCR PO SCH (17:36)
[2024-07-10 07:44] LABS: Hematocrit (blood only) 41.4 % (37.0-47.0); Mean Corpuscular Hemoglobin 29.4 pg (25.0-34.0); Mean Corpuscular Hgb Conc 33.8 g/dL (32.0-36.0); Mean Platelet Volume 9.4 fL (9.4-12.4); Platelet Count 286 K/uL (130-400); RDW Coefficient of Variation 13.8 % (11.5-14.5); RDW Standard Deviation 43.7 fL (36.4-46.3); Red Blood Count 4.76 M/uL (4.20-5.40); White Blood Count 10.27 K/ul (4.8-10.8)
--- NOTE | 2024-07-10 07:51 | Hospitalist Progress Note ---
Date of Service July 10, 2024 Assessment & Plan (1) Diabetes mellitus with hypoglycemia: (2) Cough: (3) Chest pain: (4) GERD (gastroesophageal reflux disease): (5) Alzheimer's dementia: Plan 74yo female presented with 9 days URI sx with dry cough with associated chest heaviness and shortness of breath with diaphoresis and shaking with BSG 75 on Toujeo 78u daily with new rx for Jardiance reported. Prior lows w/ URI w/ seizure in the past. Recently placed on levaquin for suspected bronchitis and CXR and CTA obtained on admission which were negative for PE or pneumonia. Had been continued on Levaquin for UTI/bronchitis on admission and EKG w/o ischemic changes and troponin negative x 2. Further discussion with patient given cough w/ eating, reviewed prior EGD 2014 w/ Dr Case and reported LIFELONG NEED FOR PPI THERAPY. at that time was on ASA however do note does take naproxen/Celebrex on occasion for arthritis and was not on PPI or pepcid when I picked her up on 07/08. I suspect her "CP/bronchitis and cough" are more related to REFLUX I added pepcid BID w/ improvement in symptoms 07/08 - return of epigastric discomfort on 07/09 and improvement with protonix daily Today improvement w/ diet but ongoing issues in evening hours and have increased to BID/consulted GI. Have also consulted speech as denied issues w/ pain w/ swallowing for me, HOWEVER she did report some issues to speech therapy. --> Diet has been adjusted to make easier to chew. Aspiration precautions. Continued increased PPI BID for today, pepcid BID. Nystatin ordered for possible thrush as well She reports she is to have outpt EGD and will need to ensure arranged. (Hx gastric ulcers) #Hypoglycemia, DM T2 suspected cause for admission with associated diaphoresis and tremors with BSG in 70s, without awareness prior. Home regimen Toujeo 78u SC daily and metformin 500mg daily, NEW rx Jardiance Feb A1c 9.9 on repeat Pharmacy assisting w/ glycemic control, have resumed metformin 07/09 w/ improvement in BSGs and would hold OFF resumption of jardiance at dc until f/u with PCP DM educator saw, plan for NEW DEXCOM 7 rx at ri working to see about [facility] endo f/u if available Insulin dosing TBD at ri #Chest pain/bronchitis/cough in setting of bronchitis w/ some reproducibility on exam HOWEVER see above I suspect his is more related to reflux CXR negative (again on repeat 07/09), CTA negative for PE As above, improvement in sx since pepcid but increasing protonix and benefit from outpatient EGD Levaquin has been discontinued as completed 5 day course based on renal function AVOID NSAIDS (got celebrex 2-3 days ago for headache) #Tachycardia - as above, troponin negative and CTA negative for PE. Ongoing issue and metoprolol 12.5mg BID added for BP and HR control and have had improvement in rates since last evening and BP stable. #Alzheimer's dementia Patient is able to answer questions appropriately and follow commands and continues on trazodone for sleep. TSH/B12 wnl. Additional trazodone 50mg HS prn if difficult with sleep 07/09 (did not use) Continue frequent orientation/delirium prevention strategies. Dispo: continued inpatient stay -speech consulted/diet adjusted, aspiration precautions to continue and PPI increased to BID and added nystatin. [facility] or closer to her home) Possible [facility] vs home w/ HH services as patient now feeling better and hopeful ri for her grandson's bday republican this weekend. Will need rx Dexcom and f/u PCP/endo at ri Admission and Anticipated Discharge Date Admission Date: July 07, 2024 Supervising Physician Co-Signing Physician Notes The patient was not seen by me. The chart was reviewed. Case discussed with TRICIA Montemayor. Agree with assessment and plan Subjective Eval this morning, doing well, BSGs better controlled and metformin resumed. Diet acceptable. No BM in 2-3 days, normal for her. Not like miralax texture but agreeable to colace/senna. Discussed cough after eating, shes not positive ongoing and reports improvement since protonix but still wakes up w/ cough.Will increase PPI to BID. Of note, she does report is to have EGD w/ GI upcoming, initially thought in September but maybe moved up to July? [place] vs [place]. She is considering home w/ hh services as has grandson's bday republican in 2 days if continued improvement w/ increase PPI. Physical Exam 2 Physical Exam: General: 74yo female laying in bed, NAD and eating breakfast, occ cough but no distress/hypoxia HEENT: head atraumatic, normocephalic, mm stable, ?posterior throat fungal appearance/thrush? Resp: even/unlabored, no wheezing/rales, on room air, occ cough (nonproductive) CV: rates improved w/ BB, sinus, no significant m/r/g, no pitting edema or calf tenderness GI: +BS, soft/slight distension but no overt tenderness no nazario MSK/Neuro: generalized weakness but nonfocal, answering questions appropriately Psych: alert to person/place/time, intermittent memory issues at times but cooperative/pleasant during encounter, less fatigued appearing Results & Data Results & Data Vital Signs (Past 12 Hours) Vital Signs Temp Pulse Pulse Resp BP BP Pulse Ox 07/10/24 07:36 36.6 C 69 20 119/72 93 07/10/24 03:08 36.7 C 81 16 105/61 94 07/09/24 23:14 36.7 C 74 18 120/63 95 07/09/24 22:31 72 07/09/24 22:00 O2 Del Method 07/10/24 07:36 Room Air 07/10/24 03:08 Room Air 07/09/24 23:14 Room Air 07/09/24 22:31 07/09/24 22:00 Room Air Laboratory Results 07/10/24 07:08 07/10/24 07:08 Mag 1.7 Diagnostic Findings Chest X-Ray 07/09/24 16:07 Chest radiograph, one view History: Chest pain Comparison: June 20, 2020 Findings: Single AP view of the chest performed. No focal consolidation or pleural effusion. No pneumothorax. The cardiomediastinal silhouette is within normal limits. Normal pulmonary vascularity. No evidence for lymphadenopathy. No visualized bony or soft tissue abnormality. Impression: Normal chest radiograph Electronically signed by Danny Jacobson 07-09-2024 5:20 PM PG Care Time/CCT Total # of Minutes Spent Total Time Spent with Patient: Total time spent is greater than 50% in coordination of care (as documented) at patient's floor/unit and/or counseling patient: Coding Level of Care Code 12859 SUB INP/OBS CARE 3/50MIN Diagnoses Diabetes mellitus with hypoglycemia E11.649 Cough R05.9 Chest pain R07.9 GERD (gastroesophageal reflux disease) K21.9 Alzheimer's dementia G30.9; F02.80
[2024-07-10 08:04] LABS: Calcium 9.3 mg/dl (8.6-10.3); Magnesium 1.7 mg/dl (1.7-2.4); Potassium 4.3 mmol/L (3.5-5.1)
[2024-07-10 08:10] LABS: BUN Creatinine Ratio 27.7 (10-20); Creatinine Clr Calc Pharmacy 40.6 ml/min
[2024-07-10] MEDS: PANTOprazole 40 MG TAB PO SCH ×2 (09:41→21:38)
[2024-07-10] MEDS: DOCUSATE SODIUM/SENNA 50/8.6MG TAB PO SCH (09:47)
[2024-07-10] MEDS: LANTUS PER UNIT CHARGE SQ SCH (09:48)
--- NOTE | 2024-07-10 10:36 | Gastrointestinal Consultation ---
Date of Consultation July 10, 2024 Assessment & Plan (1) GERD (gastroesophageal reflux disease): -Continue Protonix 40 mg BID -Continue Famotidine 20 mg BID -Proceed with outpatient EGD as scheduled when recovered from bronchitis Supervising Physician Co-Signing Physician Notes I examined the patient and reviewed patient's chart , laboratory data and imaging studies. I agree with with assessment and plan of care as suggested by advanced practice provider History of Present Illness Reason for Consultation: Gastritis Attending Physician: Davy Wyman MD History of Present Illness Patient is a 74 yo female admitted for bronchitis. She notes a history of GERD. She is not on a PPI at home. She notes she is scheduled for an endoscopy in the outpatient setting to see if her ongoing cough is related to esophageal issues. She denies melena, hematemesis, hematochezia. She notes infrequent dysphagia. She is currently under hospitalist care for the treatment of her bronchitis. She is presently prescribed Pantoprazole 40 mg BID and Famotidine 20 mg BID. Allergies Allergy/AdvReac Type Severity Reaction Status Date / Time codeine Allergy Unknown Itchiness Verified 06/11/23 13:53 erythromycin base Allergy Unknown Itchiness Verified 06/11/23 13:53 Penicillins Allergy Unknown Itchiness Verified 06/11/23 13:53 propoxyphene Allergy Unknown UNKNOWN Verified 06/11/23 13:53 sumatriptan Allergy Unknown Unknown Verified 06/11/23 13:53 adhesive tape AdvReac Mild "Rips skin Unverified 06/11/23 13:53 off with it" Home Medications Medication Instructions Recorded Confirmed Type cholecalciferol (vitamin D3) 50 3,000 unit PO QAM 06/20/20 07/05/24 History mcg (2,000 unit) tablet (Vitamin D3) fenofibrate micronized 134 mg 134 mg PO UD 06/20/20 07/05/24 History capsule metformin 500 mg tablet 500 mg PO UD 06/20/20 07/05/24 History rizatriptan 10 mg tablet 10 mg PO DIRECTED PRN Migraine 06/20/20 07/05/24 History Headache albuterol sulfate 2.5 mg/3 mL 2.5 mg inhalation Q6H PRN sob 03/15/23 07/05/24 History (0.083 %) solution for nebulization calcium 600 mg (as 1 tab PO UD 03/15/23 07/05/24 History carbonate)-vitamin D3 10 mcg (400 unit) tablet loratadine 10 mg tablet 10 mg PO DAILY 03/15/23 07/05/24 History pen needle, diabetic 32 gauge x #100 ea 03/15/23 03/15/23 History 1/4" (Easy Touch) trazodone 50 mg tablet 50 mg PO DAILY 03/15/23 07/05/24 History blood-glucose sensor (Dexcom G7 #1 ea 06/11/23 06/11/23 History Sensor device) pen needle, diabetic 32 gauge x #1,200 ea 06/11/23 06/11/23 History 32" (BD Carina 2nd Gen Pen Needle) albuterol sulfate 90 mcg/actuation 1 puff inhalation Q4H PRN Wheezing 07/05/24 07/05/24 History aerosol inhaler duloxetine 60 mg capsule,delayed 60 mg PO UD 07/05/24 07/05/24 History release insulin glargine U-300 conc 300 78 unit subcut DAILY 07/05/24 07/05/24 History unit/mL (1.5 mL) subcutaneous pen (Toujeo SoloStar U-300 Insulin) levofloxacin 750 mg tablet 750 mg PO DAILY 07/05/24 07/05/24 History Patient History Medical History Alzheimer's dementia Seasonal allergies Asthma Seizure-like activity Arthritis Peripheral neuropathy Migraine headache Muscle spasm Depression COVID-19 Diabetes HLD (hyperlipidemia) Surgical History H/O breast biopsy H/O: hysterectomy History of surgical removal of ganglion cyst Social History Smoking Status: Former smoker Second Hand Exposure: No; Do You Dip or Chew Tobacco: No; Hx Alcohol Use: No Hx Substance Use: No Preferred Language: Kyrgyz Communication Ability: Effective Energy Rater Required: No Beliefs That Will Affect Care: None Current Living Situation: Alone Other Information That Helps Us Care for You: No Feels Safe at Home: Yes Safety Concerns: Feels Safe At This Time Assistive Devices: Walker Review of Systems Gastrointestinal: no abdominal pain, no heartburn, no dysphagia and no blood in stools Physical Exam Constitutional: well developed Respiratory: normal respiratory effort Gastrointestinal (Abdomen): normal bowel sounds, soft, nontender, no hepatosplenomegaly Psychiatric: Orientation: alert and oriented x 3 Results & Data Vital Signs (Past 12 Hours) Vital Signs Temp Pulse Pulse Resp BP BP Pulse Ox 07/10/24 10:01 07/10/24 10:00 96 H 07/10/24 07:36 36.6 C 69 20 119/72 93 07/10/24 03:08 36.7 C 81 16 105/61 94 07/09/24 23:14 36.7 C 74 18 120/63 95 O2 Del Method 07/10/24 10:01 Room Air 07/10/24 10:00 07/10/24 07:36 Room Air 07/10/24 03:08 Room Air 07/09/24 23:14 Room Air PG Care Time/CCT Total # of Minutes Spent Total Time Spent with Patient: Total time spent is greater than 50% in coordination of care (as documented) at patient's floor/unit and/or counseling patient: Coding Level of Care Code 99510 INT INP/OBS CARE 75MIN Diagnoses GERD (gastroesophageal reflux disease) K21.9
[2024-07-10] MEDS: NYSTATIN SUSP 500,000 U/5 ML UDC PO SCH (13:35)
[2024-07-11] MEDS: INSULIN ASPART PER UNIT CHARGE SC SCH ×2 (09:13→13:44)
[2024-07-11 10:02] LABS: BUN Creatinine Ratio 27.5 (10-20); Calcium 9.8 mg/dl (8.6-10.3); Magnesium 1.6 mg/dl (1.7-2.4); Potassium 4.4 mmol/L (3.5-5.1)
[2024-07-11] MEDS: MAGNESIUM SULFATE / D5W 1 GM/100 ML BAG IV ONE (11:03)
--- NOTE | 2024-07-11 13:58 | Pharmacy Report ---
Pharmacy Glycemic Short Note 2 - Date of Service July 11, 2024 - Glycemic Short BSG Results (Last 24 hours): 07/10/24 07/10/24 07/11/24 17:27 20:24 08:18 Glucose POC Glucose 99 118 H 114 H 07/11/24 07/11/24 08:51 12:04 Glucose 121 H POC Glucose 132 H OUTPATIENT ANTIDIABETIC REGIMEN: * Toujeo 78 units SC daily * Metformin 500 mg PO daily A1c = 9.9% (07/06/24) ASSESSMENT: 07/11/24: * Shala received 43 units of insulin yesterday (20 were basal) * Fasting BSG this AM acceptable, continue current basal regimen * Metformin restarted per provider, utilizing tighter breakfast NovoLog brad etgabrielle, BSGs stable, continue. * She continues on Levaquin. 07/09/24: * Blood sugars trended up throughout the day yesterday w/ elevated fasting blood sugar this morning (159 mg/dL) * Will increase basal insulin and bolus carb ratio today * Patient is awaiting placement 07/07/24: * Blood sugars labile yesterday, ranging 60-205 mg/dL * Received 21 units of insulin yesterday (10 units of basal and 11 units of prandial/correctional bolus) * Significant difference between inpatient and outpatient insulin dosing thus far * Will make only conservative adjustments today given hypoglycemia yesterday 07/06/24: * 74 yo with PMH of diabetes, hyperlipidemia, GERD, and Alzheimer's presenting with URI symptoms, SOB, diaphoresis and shaking. BSG of 75 mg/dL in the ER. Family reports BSG typically runs around 200-300 mg/dL. BSG did trend up to 121 and 183 mg/dL throughout the evening. Patient received a total of 2 units of Novolog 4 PM. * Fasting BSG 07/06 resulted at 72 mg/dL thus it was decided to delay resumption of basal insulin until further evidence of BSG recovery. Will order basal insulin per BGS scale to start this evening. * Will loosen Novolog parameters due to hypoglycemia following breakfast insulin coverage. PLAN FOR INPATIENT GLYCEMIC CONTROL: * Hold outpatient oral diabetes medications * Basal insulin * Lantus 20 units SC daily * Bolus insulin * NovoLog per scale QDB * Goal Range: Low 120 mg/dL - High 150 mg/dL * Correction Factor: 35 mg/dL/unit * Nutritional / Prandial insulin per carb ratio of 1 unit per 8 grams CHO consumed * Bolus insulin * NovoLog per scale QDL, QDD, and TID or Q6hrs while NPO * Goal Range: Low 120 mg/dL - High 150 mg/dL * Correction Factor: 40 mg/dL/unit * Nutritional / Prandial insulin per carb ratio of 1 unit per 10 grams CHO consumed
--- NOTE | 2024-07-11 17:55 | Hospitalist Progress Note ---
Date of Service July 11, 2024 Assessment & Plan (1) Diabetes mellitus with hypoglycemia: (2) Cough: (3) Chest pain: (4) GERD (gastroesophageal reflux disease): (5) Alzheimer's dementia: Plan 74yo female presented with 9 days URI sx with dry cough with associated chest heaviness and shortness of breath with diaphoresis and shaking with BSG 75 on Toujeo 78u daily with new rx for Jardiance reported. Prior lows w/ URI w/ seizure in the past. Recently placed on levaquin for suspected bronchitis and CXR and CTA obtained on admission which were negative for PE or pneumonia. Had been continued on Levaquin for UTI/bronchitis on admission and EKG w/o ischemic changes and troponin negative x 2. Further discussion with patient given cough w/ eating, reviewed prior EGD 2014 w/ Dr Case and reported LIFELONG NEED FOR PPI THERAPY. at that time was on ASA however do note does take naproxen/Celebrex on occasion for arthritis and was not on PPI or pepcid when I picked her up on 07/08. I suspect her "CP/bronchitis and cough" are more related to REFLUX -improved continue bid pepcid and bid PPI -she says the EGD has been scheduled for July -recommended elevating HOB #Hypoglycemia, DM T2 suspected cause for admission with associated diaphoresis and tremors with BSG in 70s, without awareness prior. Home regimen Toujeo 78u SC daily and metformin 500mg daily, NEW rx Jardiance Feb A1c 9.9 on repeat Sees an race relations professor in [place]. Potentially interested in [place] endo follow up Using only apx 40 units insulin / day and Home Troujeo dose is 78 - related to inconsistently taking? and drinking sweet tea -metformin resumed. will resume SGLT2 so we can find out her true insulin needs while in rehab #Chest pain/bronchitis/cough in setting of bronchitis w/ some reproducibility on exam HOWEVER see above I suspect his is more related to reflux CXR negative (again on repeat 07/09), CTA negative for PE Completed 5d levaquin. See above #Tachycardia - as above, troponin negative and CTA negative for PE. Ongoing issue and metoprolol 12.5mg BID added for BP and HR control and have had improvement in rates since last evening and BP stable. #Alzheimer's dementia Patient is able to answer questions appropriately and follow commands and continues on trazodone for sleep. TSH/B12 wnl. Additional trazodone 50mg HS prn if difficult with sleep 07/09 (did not use) Continue frequent orientation/delirium prevention strategies. Dispo: referred to SNF near home, discussed with care coord no bed today I wrote her an Rx for Dexcom 7 sensor Admission and Anticipated Discharge Date Admission Date: July 07, 2024 Subjective Feeling pretty good. Cough improved and no chest pain Willing to go to rehab and her daughter agrees Physical Exam 2 Physical Exam: Last 24h vitals reviewed GEN: no acute distress, sitting up in chair HEENT: pupils equal, sclerae anicteric, moist MM RESP: normal WOB, CTAB. occasional dry coughing CV: reg no mrg ABD: soft/nt/nd +BT : no nazario SKIN: warm and dry, no generalized rashes NEURO: AOx person, place, and situation. Face symmetric, speech normal, moves 4 ext spontaneously and equally Results & Data Results & Data Vital Signs (Past 12 Hours) Vital Signs Temp Pulse Pulse Resp BP BP Pulse Ox 07/11/24 15:20 36.7 C 86 16 121/75 92 07/11/24 15:00 72 07/11/24 10:55 36.6 C 82 16 100/66 128/70 93 07/11/24 08:07 36.6 C 82 16 128/70 93 07/11/24 07:24 07/11/24 07:10 81 O2 Del Method 07/11/24 15:20 Room Air 07/11/24 15:00 07/11/24 10:55 07/11/24 08:07 Room Air 07/11/24 07:24 Room Air 07/11/24 07:10 Laboratory Results 07/10/24 07:08 07/11/24 08:51 PG Care Time/CCT Total # of Minutes Spent Total Time Spent with Patient: Total time spent is greater than 50% in coordination of care (as documented) at patient's floor/unit and/or counseling patient: Coding Level of Care Code 04006 SUB INP/OBS CARE 2/35MIN Diagnoses Diabetes mellitus with hypoglycemia E11.649 Cough R05.9 Chest pain R07.9 GERD (gastroesophageal reflux disease) K21.9 Alzheimer's dementia G30.9; F02.80
[2024-07-12] MEDS: LANTUS PER UNIT CHARGE SQ SCH (10:29)
[2024-07-12] MEDS: EMPAGLIFLOZIN 10 MG TAB PO SCH (10:45)
--- NOTE | 2024-07-12 14:23 | Hospitalist Progress Note ---
Date of Service July 12, 2024 Assessment & Plan (1) Diabetes mellitus with hypoglycemia: (2) Cough: (3) Chest pain: (4) GERD (gastroesophageal reflux disease): (5) Alzheimer's dementia: Plan 74yo female presented with 9 days URI sx with dry cough with associated chest heaviness and shortness of breath with diaphoresis and shaking with BSG 75 on Toujeo 78u daily with new rx for Jardiance reported. Prior lows w/ URI w/ seizure in the past. Recently placed on levaquin for suspected bronchitis and CXR and CTA obtained on admission which were negative for PE or pneumonia. Had been continued on Levaquin for UTI/bronchitis on admission and EKG w/o ischemic changes and troponin negative x 2. #Chest pain/bronchitis/cough CXR negative (again on repeat 07/09), CTA negative for PE. no evidence of acute coronary syndrome some component of the chest pain was musculoskeletal and reproducible on palpation, however, mainly it seemed related to GERD -completed 5d levaquin. # GERD, hiatal hernia history of cough w/ eating, prior EGD 2014 w/ Dr Case and reported LIFELONG NEED FOR PPI THERAPY. was not on PPI or H2 kari prior to admission - improved, continue twice daily Pepcid and twice daily PPI -she says the EGD has been scheduled for July -recommended elevating HOB - avoid NSAIDs #Hypoglycemia, DM T2 suspected cause for admission with associated diaphoresis and tremors with BSG in 70s, without awareness prior. Home regimen Toujeo 78u SC daily and metformin 500mg daily, NEW rx Jardiance Fe A1c 9.9 on repeat Sees an pairer substandard in [place]. Potentially interested in [facility] endo follow up Using only apx 40 units insulin / day and Home Troujeo dose is 78 - related to inconsistently taking? and drinking sweet tea -metformin resumed. on discharge will utilize 10-20 units of glargine and resume jardiance at the 10 mg dose, further adjustment while in SNF rehab -she has early june prescriptions for jardiance 10 mg and jardiance 25 mg - unclear which one she was taking #Tachycardia - as above, troponin negative and CTA negative for PE. Ongoing issue and metoprolol 12.5mg BID added for BP and HR control and have had improvement in rates since last evening and BP stable. #Alzheimer's dementia Patient is able to answer questions appropriately and follow commands and continues on trazodone for sleep. TSH/B12 wnl. Additional trazodone 50mg HS prn if difficult with sleep 07/09 (did not use) Continue frequent orientation/delirium prevention strategies. DVT ppx - enoxaparin Dispo: referred to SNF near home, discussed with care coord no bed today I wrote her an Rx for Dexcom 7 sensor Admission and Anticipated Discharge Date Admission Date: July 07, 2024 Subjective Shala has not had any more chest pain occasionally a feeling of tightness, her cough is unchanged, blood sugars have been excellent for last 24 hours Physical Exam 2 Physical Exam: Last 24h vitals reviewed GEN: awake sitting in bed HEENT: pupils equal, sclerae anicteric, moist MM RESP: normal WOB, CTAB. frequent dry cough CV: reg no mrg ABD: soft nondistended : no nazario SKIN: warm and dry, no generalized rashes NEURO: AOx person, place, and situation. Face symmetric, speech normal, moves 4 ext spontaneously and equally Results & Data Results & Data Vital Signs (Past 12 Hours) Vital Signs Temp Pulse Pulse Resp BP BP Pulse Ox 07/12/24 11:16 36.9 C 82 18 124/77 96 07/12/24 09:44 07/12/24 07:33 36.8 C 102 H 18 111/78 99 07/12/24 07:00 83 07/12/24 03:41 36.4 C L 68 16 98/60 L 97 O2 Del Method 07/12/24 11:16 Room Air 07/12/24 09:44 Room Air 07/12/24 07:33 Room Air 07/12/24 07:00 07/12/24 03:41 Room Air Laboratory Results 07/10/24 07:08 07/11/24 08:51 PG Care Time/CCT Total # of Minutes Spent Total Time Spent with Patient: Total time spent is greater than 50% in coordination of care (as documented) at patient's floor/unit and/or counseling patient: Coding Level of Care Code 05324 SUB INP/OBS CARE 2/35MIN Diagnoses Diabetes mellitus with hypoglycemia E11.649 Cough R05.9 Chest pain R07.9 GERD (gastroesophageal reflux disease) K21.9 Alzheimer's dementia G30.9; F02.80
[2024-07-12] MEDS: ENOXAPARIN INJ 40 MG/0.4 ML SYR SQ SCH (14:56)
--- NOTE | 2024-07-13 16:17 | Hospitalist Progress Note ---
Date of Service July 13, 2024 Assessment & Plan (1) Diabetes mellitus with hypoglycemia: (2) Cough: (3) Chest pain: (4) GERD (gastroesophageal reflux disease): (5) Alzheimer's dementia: Plan 74yo female presented with 9 days URI sx with dry cough with associated chest heaviness and shortness of breath with diaphoresis and shaking with BSG 75 on Toujeo 78u daily with new rx for Jardiance reported. Prior lows w/ URI w/ seizure in the past. Recently placed on levaquin for suspected bronchitis and CXR and CTA obtained on admission which were negative for PE or pneumonia. Had been continued on Levaquin for UTI/bronchitis on admission and EKG w/o ischemic changes and troponin negative x 2. #Chest pain/bronchitis/cough CXR negative (again on repeat 07/09), CTA negative for PE. no evidence of acute coronary syndrome some component of the chest pain was musculoskeletal and reproducible on palpation, however, mainly it seemed related to GERD -completed 5d levaquin. # GERD, hiatal hernia history of cough w/ eating, prior EGD 2014 w/ Dr Case and reported LIFELONG NEED FOR PPI THERAPY. was not on PPI or H2 kari prior to admission - improved, continue twice daily Pepcid and twice daily PPI -she says the EGD has been scheduled for July -recommended elevating HOB - avoid NSAIDs #Hypoglycemia, DM T2 suspected cause for admission with associated diaphoresis and tremors with BSG in 70s, without awareness prior. Home regimen Toujeo 78u SC daily and metformin 500mg daily, NEW rx Jardiance Apr A1c 9.9 on repeat Sees an drill foreman in [place]. Potentially interested in [facility] follow up Home Troujeo dose is 78 - related to inconsistently taking? and drinking sweet tea - used 26 units total insulin past 24 hours -metformin resumed. on discharge will utilize 10-15 units of glargine and resume jardiance at the 10 mg dose, further adjustment while in SNF rehab -she has early june prescriptions for jardiance 10 mg and jardiance 25 mg - unclear which one she was taking #Tachycardia - as above, troponin negative and CTA negative for PE. blood pressure and heart rate improved on metoprolol 12.5mg BID - continue #Alzheimer's dementia Patient is able to answer questions appropriately and follow commands TSH/B12 wnl. Additional trazodone 50mg HS prn sleep Continue frequent orientation/delirium prevention strategies. DVT ppx - enoxaparin Dispo: referred to SNF hoping for a bed at [facility] soon I wrote her an Rx for Dexcom 7 sensor Admission and Anticipated Discharge Date Admission Date: July 07, 2024 Subjective cough same otherwise feels fine, occasionally has some heartburn but overall much improved no fabi chest pain Physical Exam Physical Exam: Last 24h vitals reviewed GEN: awake alert watching TV HEENT: pupils equal, sclerae anicteric, moist MM RESP: normal WOB, CTAB. frequent dry cough persists CV: reg no mrg ABD: soft nondistended : no nazario SKIN: warm and dry, no generalized rashes NEURO: AOx person, place, and situation. Face symmetric, speech normal, moves 4 ext spontaneously and equally Results & Data Results & Data Vital Signs (Past 12 Hours) Vital Signs Temp Pulse Pulse Resp BP BP Pulse Ox 07/13/24 15:50 36.7 C 74 18 131/73 92 07/13/24 14:00 70 07/13/24 11:22 36.9 C 76 17 99/63 L 93 07/13/24 07:39 36.8 C 71 16 103/65 93 07/13/24 07:02 61 O2 Del Method 07/13/24 15:50 Room Air 07/13/24 14:00 07/13/24 11:22 Room Air 07/13/24 07:39 Room Air 07/13/24 07:02 PG Care Time/CCT Total # of Minutes Spent Total Time Spent with Patient: Total time spent is greater than 50% in coordination of care (as documented) at patient's floor/unit and/or counseling patient: Coding Level of Care Code 44002 SUB INP/OBS CARE 2/35MIN Diagnoses Diabetes mellitus with hypoglycemia E11.649 Cough R05.9 Chest pain R07.9 GERD (gastroesophageal reflux disease) K21.9 Alzheimer's dementia G30.9; F02.80
--- NOTE | 2024-07-14 13:47 | Pharmacy Report ---
Pharmacy Glycemic Short Note 2 - Date of Service July 14, 2024 - Glycemic Short BSG Results (Last 24 hours): 07/13/24 07/13/24 07/14/24 15:53 17:24 08:17 POC Glucose 122 H 93 91 07/14/24 12:02 POC Glucose 108 H OUTPATIENT ANTIDIABETIC REGIMEN: * Toujeo 78 units SC daily * Metformin 500 mg PO daily A1c = 9.9% (07/06/24) ASSESSMENT: 07/14/24: * Blood sugars have been tightly controlled over past 48 hours w/ decreasing insulin requirements * Fasting blood sugar of 91 mg/dL this morning - will decrease basal further today to decrease risk of hypoglycemia 07/11/24: * Shala received 43 units of insulin yesterday (20 were basal) * Fasting BSG this AM acceptable, continue current basal regimen * Metformin restarted per provider, utilizing tighter breakfast NovoLog parameters, BSGs stable, continue. * She continues on Levaquin. 07/09/24: * Blood sugars trended up throughout the day yesterday w/ elevated fasting blood sugar this morning (159 mg/dL) * Will increase basal insulin and bolus carb ratio today * Patient is awaiting placement 07/07/24: * Blood sugars labile yesterday, ranging 60-205 mg/dL * Received 21 units of insulin yesterday (10 units of basal and 11 units of prandial/correctional bolus) * Significant difference between inpatient and outpatient insulin dosing thus far * Will make only conservative adjustments today given hypoglycemia yesterday 07/06/24: * 74 yo with PMH of diabetes, hyperlipidemia, GERD, and Alzheimer's presenting with URI symptoms, SOB, diaphoresis and shaking. BSG of 75 mg/dL in the ER. Family reports BSG typically runs around 200-300 mg/dL. BSG did trend up to 121 and 183 mg/dL throughout the evening. Patient received a total of 2 units of Novolog 07/05 PM. * Fasting BSG 07/06 resulted at 72 mg/dL thus it was decided to delay resumption of basal insulin until further evidence of BSG recovery. Will order basal insulin per BGS scale to start this evening. * Will loosen Novolog parameters due to hypoglycemia following breakfast insulin coverage. PLAN FOR INPATIENT GLYCEMIC CONTROL: * Metformin 500 mg PO daily w/ dinner * Basal insulin * Lantus 0-5-10 units SC HS * Bolus insulin * NovoLog per scale QDB * Goal Range: Low 120 mg/dL - High 150 mg/dL * Correction Factor: 35 mg/dL/unit * Nutritional / Prandial insulin per carb ratio of 1 unit per 8 grams CHO consumed * Bolus insulin * NovoLog per scale QDL, QDD, and TID or Q6hrs while NPO * Goal Range: Low 120 mg/dL - High 150 mg/dL * Correction Factor: 40 mg/dL/unit * Nutritional / Prandial insulin per carb ratio of 1 unit per 10 grams CHO consumed
--- NOTE | 2024-07-14 16:26 | Hospitalist Progress Note ---
Date of Service July 14, 2024 Assessment & Plan (1) Diabetes mellitus with hypoglycemia: (2) Cough: (3) Chest pain: (4) GERD (gastroesophageal reflux disease): (5) Alzheimer's dementia: Plan 74yo female presented with 9 days URI sx with dry cough with associated chest heaviness and shortness of breath with diaphoresis and shaking with BSG 75 on Toujeo 78u daily with new rx for Jardiance reported. Prior lows w/ URI w/ seizure in the past. Recently placed on levaquin for suspected bronchitis and CXR and CTA obtained on admission which were negative for PE or pneumonia. Had been continued on Levaquin for UTI/bronchitis on admission and EKG w/o ischemic changes and troponin negative x 2. #Chest pain/bronchitis/cough CXR negative (again on repeat 07/09), CTA negative for PE. no evidence of acute coronary syndrome some component of the chest pain was musculoskeletal and reproducible on palpation, however, mainly it seemed related to GERD. no further chest pain - she does report history of asthma so cough variant asthma is a possibility, would consider trial of treating asthma if not improving within 1-2 more weeks on acid suppression -completed 5d levaquin. # GERD, hiatal hernia history of cough w/ eating, prior EGD 2014 w/ Dr Case and reported LIFELONG NEED FOR PPI THERAPY. was not on PPI or H2 kari prior to admission - improved, continue twice daily Pepcid and twice daily PPI -she says the EGD has been scheduled for July -recommended elevating HOB - avoid NSAIDs #Hypoglycemia, DM T2 suspected cause for admission with associated diaphoresis and tremors with BSG in 70s, without awareness prior. Home regimen Toujeo 78u SC daily and metformin 500mg daily, NEW rx Jardiance Fe. blood glucose control has significantly improved currently on basal bolus insulin and metformin. blood glucoses reviewed they are overcontrolled today, reviewed recommendations and pharmacy note agree with her plan to reduce the glargine dose A1c 9.9 on repeat Sees an net software developer in [place]. Potentially interested in [place] peter follow up Home Troujeo dose is 78 - vastly different from inpatient insulin needs related to inconsistently taking? and drinking sweet tea - reduced dose of glargine -metformin resumed. on discharge will utilize 10-15 units of glargine and resume jardiance at the 10 mg dose, further adjustment while in SNF rehab -she has early june prescriptions for jardiance 10 mg and jardiance 25 mg - unclear which one she was taking #Tachycardia - as above, troponin negative and CTA negative for PE. blood pressure and heart rate improved on metoprolol 12.5mg BID - continue #Alzheimer's dementia Patient is able to answer questions appropriately and follow commands TSH/B12 wnl. Additional trazodone 50mg HS prn sleep Continue frequent orientation/delirium prevention strategies. DVT ppx - enoxaparin Dispo: referred to SNF hoping for a bed at [facility] soon I wrote her an Rx for Dexcom 7 sensor and gave it to her Admission and Anticipated Discharge Date Admission Date: July 07, 2024 Subjective Shala is doing very well, her cough is unchanged Physical Exam Physical Exam: Last 24h vitals reviewed GEN: awake and sitting in bed HEENT: pupils equal, sclerae anicteric, moist MM RESP: clear to auscultation bilaterally, frequent nonproductive cough unchanged CV: reg no mrg ABD: soft nondistended : no nazario SKIN: warm and dry, no generalized rashes NEURO: AOx person, place, and situation. Face symmetric, speech normal, moves 4 ext spontaneously and equally Results & Data Results & Data Vital Signs (Past 12 Hours) Vital Signs Temp Pulse Pulse Resp BP BP Pulse Ox 07/14/24 16:04 72 07/14/24 15:30 36.8 C 80 16 109/70 94 07/14/24 11:48 36.5 C 68 16 124/72 94 07/14/24 11:19 36.9 C 68 14 110/72 91 07/14/24 08:14 07/14/24 07:42 36.8 C 74 16 102/67 94 07/14/24 07:13 71 O2 Del Method 07/14/24 16:04 07/14/24 15:30 Room Air 07/14/24 11:48 Room Air 07/14/24 11:19 Room Air 07/14/24 08:14 Room Air 07/14/24 07:42 Room Air 07/14/24 07:13 PG Care Time/CCT Total # of Minutes Spent Total Time Spent with Patient: Total time spent is greater than 50% in coordination of care (as documented) at patient's floor/unit and/or counseling patient: Coding Level of Care Code 93768 SUB INP/OBS CARE MIN Diagnoses Diabetes mellitus with hypoglycemia E11.649 Cough R05.9 Chest pain R07.9 GERD (gastroesophageal reflux disease) K21.9 Alzheimer's dementia G30.9; F02.80
[2024-07-14] MEDS: LANTUS PER UNIT CHARGE SQ SCH (21:12)
--- NOTE | 2024-07-15 15:54 | Hospitalist Progress Note ---
Date of Service July 15, 2024 Assessment & Plan (1) Diabetes mellitus with hypoglycemia: (2) Cough: (3) Chest pain: (4) GERD (gastroesophageal reflux disease): (5) Alzheimer's dementia: Plan 74yo female presented with 9 days URI sx with dry cough with associated chest heaviness and shortness of breath with diaphoresis and shaking with BSG 75 on Toujeo 78u daily with new rx for Jardiance reported. Prior lows w/ URI w/ seizure in the past. Recently placed on levaquin for suspected bronchitis and CXR and CTA obtained on admission which were negative for PE or pneumonia. Had been continued on Levaquin for UTI/bronchitis on admission and EKG w/o ischemic changes and troponin negative x 2. #Chest pain/bronchitis/cough CXR negative (again on repeat 07/09), CTA negative for PE. no evidence of acute coronary syndrome some component of the chest pain was musculoskeletal and reproducible on palpation, however, mainly it seemed related to GERD. no further chest pain - she does report history of asthma so cough variant asthma is a possibility, would consider trial of treating asthma if not improving within 1-2 more weeks on acid suppression -completed 5d levaquin. # GERD, hiatal hernia history of cough w/ eating, prior EGD 2014 w/ Dr Case and reported LIFELONG NEED FOR PPI THERAPY. was not on PPI or H2 kari prior to admission - improved, continue twice daily Pepcid and twice daily PPI -she says the EGD has been scheduled for July -recommended elevating HOB - avoid NSAIDs #Hypoglycemia, DM T2 suspected cause for admission with associated diaphoresis and tremors with BSG in 70s, without awareness prior. Home regimen Toujeo 78u SC daily and metformin 500mg daily, NEW rx Jardiance Fe. blood glucose control has significantly improved currently on basal bolus insulin and metformin. 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 Potentially interested in [place] peter follow up Home Troujeo dose is 78 - vastly different from inpatient insulin needs related to inconsistently taking? and drinking sweet tea - reduced dose of glargine -metformin resumed. on discharge will utilize 10-15 units of glargine and resume jardiance at the 10 mg dose, further adjustment while in SNF rehab -she has early june prescriptions for jardiance 10 mg and jardiance 25 mg - unclear which one she was taking #Tachycardia - as above, troponin negative and CTA negative for PE. blood pressure and heart rate improved on metoprolol 12.5mg BID - continue #Alzheimer's dementia Patient is able to answer questions appropriately and follow commands TSH/B12 wnl. Additional trazodone 50mg HS prn sleep Continue frequent orientation/delirium prevention strategies. DVT ppx - enoxaparin Dispo: referred to SNF, has a bed at [facility]. Awaiting insurance Auth Rx for Dexcom 7 sensor was given to the patient Admission and Anticipated Discharge Date Admission Date: July 07, 2024 Subjective Patient feels well overall. Denies chest pain or shortness of breath Review of Systems Review of Systems: All systems reviewed & are unremarkable except as noted in Subjective Physical Exam Physical Exam: General: Awake, conversant Heart: S1, S2/regular rate and rhythm, no murmur rubs or gallops Lungs: Clear to auscultation bilaterally. Normal effort Abdomen: Soft/nontender/nondistended. No hepatosplenomegaly Extremities: No clubbing/cyanosis. No edema Behavior: Appropriate, cooperative Results & Data Results & Data Vital Signs (Past 12 Hours) Vital Signs Temp Pulse Pulse Resp BP Pulse Ox O2 Del Method 07/15/24 14:27 68 07/15/24 11:27 36.8 C 80 18 115/74 97 Room Air 07/15/24 07:53 36.7 C 102 H 16 119/49 L 92 Room Air 07/15/24 07:19 69 Laboratory Results Abnormal lab results 07/14/24 07/14/24 07/15/24 Range/Units 17:25 20:37 08:28 POC Glucose 102 H 148 H 130 H (70-99) mg/dl 07/15/24 Range/Units 12:10 POC Glucose 140 H (70-99) mg/dl PG Care Time/CCT Total # of Minutes Spent Total Time Spent with Patient: Total time spent is greater than 50% in coordination of care (as documented) at patient's floor/unit and/or counseling patient: Coding Level of Care Code 11284 SUB INP/OBS CARE 2/35MIN Diagnoses Diabetes mellitus with hypoglycemia E11.649 Cough R05.9 Chest pain R07.9 GERD (gastroesophageal reflux disease) K21.9 Alzheimer's dementia G30.9; F02.80
--- NOTE | 2024-07-16 16:38 | Hospitalist Progress Note ---
Date of Service July 16, 2024 Assessment & Plan (1) Diabetes mellitus with hypoglycemia: (2) Cough: (3) Chest pain: (4) GERD (gastroesophageal reflux disease): (5) Alzheimer's dementia: Plan 74yo female presented with 9 days URI sx with dry cough with associated chest heaviness and shortness of breath with diaphoresis and shaking with BSG 75 on Toujeo 78u daily with new rx for Jardiance reported. Prior lows w/ URI w/ seizure in the past. Recently placed on levaquin for suspected bronchitis and CXR and CTA obtained on admission which were negative for PE or pneumonia. Had been continued on Levaquin for UTI/bronchitis on admission and EKG w/o ischemic changes and troponin negative x 2. #Chest pain/bronchitis/cough CXR negative (again on repeat 07/09), CTA negative for PE. no evidence of acute coronary syndrome some component of the chest pain was musculoskeletal and reproducible on palpation, however, mainly it seemed related to GERD. no further chest pain - she does report history of asthma so cough variant asthma is a possibility, would consider trial of treating asthma if not improving within 1-2 more weeks on acid suppression -completed 5d levaquin. # GERD, hiatal hernia history of cough w/ eating, prior EGD 2014 w/ Dr Case and reported LIFELONG NEED FOR PPI THERAPY. was not on PPI or H2 kari prior to admission - improved, continue twice daily Pepcid and twice daily PPI -she says the EGD has been scheduled for July -recommended elevating HOB - avoid NSAIDs #Hypoglycemia, DM T2 suspected cause for admission with associated diaphoresis and tremors with BSG in 70s, without awareness prior. Home regimen Toujeo 78u SC daily and metformin 500mg daily, NEW rx Jardiance Fe. blood glucose control has significantly improved currently on basal bolus insulin and metformin. blood glucoses reviewed they are overcontrolled today, reviewed recommendations and pharmacy note agree with her plan to reduce the glargine dose A1c 9.9 on repeat Sees an last dipper in [place]. Potentially interested in [place] peter follow up Home Troujeo dose is 78 - vastly different from inpatient insulin needs related to inconsistently taking? and drinking sweet tea - reduced dose of glargine -metformin resumed. on discharge will utilize 10-15 units of glargine and resume jardiance at the 10 mg dose, further adjustment while in SNF rehab -she has early june prescriptions for jardiance 10 mg and jardiance 25 mg - unclear which one she was taking #Tachycardia - as above, troponin negative and CTA negative for PE. blood pressure and heart rate improved on metoprolol 12.5mg BID - continue #Alzheimer's dementia Patient is able to answer questions appropriately and follow commands TSH/B12 wnl. Additional trazodone 50mg HS prn sleep Continue frequent orientation/delirium prevention strategies. DVT ppx - enoxaparin Dispo: referred to SNF, has a bed at [facility]. Awaiting insurance Auth Rx for Dexcom 7 sensor was given to the patient Admission and Anticipated Discharge Date Admission Date: July 07, 2024 Subjective Patient feels well overall. Denies chest pain or shortness of breath. Review of Systems Review of Systems: All systems reviewed & are unremarkable except as noted in Subjective Physical Exam Physical Exam: General: Awake, conversant Heart: S1, S2/regular rate and rhythm, no murmur rubs or gallops Lungs: Clear to auscultation bilaterally. Normal effort Abdomen: Soft/nontender/nondistended. No hepatosplenomegaly Extremities: No clubbing/cyanosis. No edema Behavior: Appropriate, cooperative Results & Data Results & Data Vital Signs (Past 12 Hours) Vital Signs Temp Pulse Pulse Resp BP Pulse Ox O2 Del Method 07/16/24 15:08 36.8 C 81 18 132/75 95 Room Air 07/16/24 15:00 80 07/16/24 11:42 36.5 C 78 17 109/70 94 Room Air 07/16/24 08:32 86 109/82 07/16/24 08:00 Room Air 07/16/24 08:00 65 07/16/24 07:42 36.8 C 85 16 98/63 L 94 Room Air Laboratory Results Abnormal lab results 07/15/24 07/15/24 07/16/24 Range/Units 16:59 20:03 08:07 POC Glucose 124 H 170 H 107 H (70-99) mg/dl 07/16/24 Range/Units 12:06 POC Glucose 211 H (70-99) mg/dl PG Care Time/CCT Total # of Minutes Spent Total Time Spent with Patient: Total time spent is greater than 50% in coordination of care (as documented) at patient's floor/unit and/or counseling patient: Coding Level of Care Code 03463 SUB INP/OBS CARE MIN Diagnoses Diabetes mellitus with hypoglycemia E11.649 Cough R05.9 Chest pain R07.9 GERD (gastroesophageal reflux disease) K21.9 Alzheimer's dementia G30.9; F02.80
[2024-07-16] MEDS: BENZONATATE 100 MG CAPSULE PO PRN (20:23)
[2024-07-16] MEDS: COUGH DROP (SUGAR FREE) LOZ 24 LOZ/1 BOX BUCCAL STA (20:23)
[2024-07-16] MEDS: ALBUT/IPRATROP 3MG/0.5MG NEB 3 ML VIAL NEB PRN (20:29)
--- NOTE | 2024-07-17 15:17 | Hospitalist Progress Note ---
Date of Service July 17, 2024 Assessment & Plan (1) Diabetes mellitus with hypoglycemia: (2) Cough: (3) Chest pain: (4) GERD (gastroesophageal reflux disease): (5) Alzheimer's dementia: Plan 74yo female presented with 9 days URI sx with dry cough with associated chest heaviness and shortness of breath with diaphoresis and shaking with BSG 75 on Toujeo 78u daily with new rx for Jardiance reported. Prior lows w/ URI w/ seizure in the past. Recently placed on levaquin for suspected bronchitis and CXR and CTA obtained on admission which were negative for PE or pneumonia. Had been continued on Levaquin for UTI/bronchitis on admission and EKG w/o ischemic changes and troponin negative x 2. #Chest pain/bronchitis/cough CXR negative (again on repeat 07/09), CTA negative for PE. no evidence of acute coronary syndrome some component of the chest pain was musculoskeletal and reproducible on palpation, however, mainly it seemed related to GERD. no further chest pain - she does report history of asthma so cough variant asthma is a possibility, would consider trial of treating asthma if not improving within 1-2 more weeks on acid suppression -completed 5d levaquin. Patient complains of a cough again Repeat chest x-ray ordered CBC ordered # GERD, hiatal hernia history of cough w/ eating, prior EGD 2014 w/ Dr Case and reported [place] NEED FOR PPI THERAPY. was not on PPI or H2 kari prior to admission - improved, continue twice daily Pepcid and twice daily PPI -she says the EGD has been scheduled for July -recommended elevating HOB - avoid NSAIDs #Hypoglycemia, DM T2 suspected cause for admission with associated diaphoresis and tremors with BSG in 70s, without awareness prior. Home regimen Toujeo 78u SC daily and metformin 500mg daily, NEW rx Jardiance Fe. blood glucose control has significantly improved currently on basal bolus insulin and metformin. blood glucoses reviewed they are overcontrolled today, reviewed recommendations and pharmacy note agree with her plan to reduce the glargine dose A1c 9.9 on repeat Sees an territory sales executive in [place]. Potentially interested in [facility] follow up Home Troujeo dose is 78 - vastly different from inpatient insulin needs related to inconsistently taking? and drinking sweet tea - reduced dose of glargine -metformin resumed. on discharge will utilize 10-15 units of glargine and resume jardiance at the 10 mg dose, further adjustment while in SNF rehab -she has early june prescriptions for jardiance 10 mg and jardiance 25 mg - unclear which one she was taking #Tachycardia - as above, troponin negative and CTA negative for PE. blood pressure and heart rate improved on metoprolol 12.5mg BID - continue #Alzheimer's dementia Patient is able to answer questions appropriately and follow commands TSH/B12 wnl. Additional trazodone 50mg HS prn sleep Continue frequent orientation/delirium prevention strategies. DVT ppx - enoxaparin Dispo: referred to SNF, has a bed at [facility]. Awaiting insurance Auth Rx for Dexcom 7 sensor was given to the patient Admission and Anticipated Discharge Date Admission Date: July 07, 2024 Subjective Patient feels well. Denies chest pain or shortness of breath. Complains of coughing Review of Systems Review of Systems: All systems reviewed & are unremarkable except as noted in Subjective Physical Exam Physical Exam: General: Awake, conversant Heart: S1, S2/regular rate and rhythm, no murmur rubs or gallops Lungs: Clear to auscultation bilaterally. Normal effort Abdomen: Soft/nontender/nondistended. No hepatosplenomegaly Extremities: No clubbing/cyanosis. No edema Behavior: Appropriate, cooperative Results & Data Results & Data Vital Signs (Past 12 Hours) Vital Signs Temp Pulse Pulse Resp BP Pulse Ox O2 Del Method 07/17/24 15:10 36.5 C 85 20 113/64 96 Room Air 07/17/24 15:04 79 07/17/24 11:21 36.7 C 78 20 106/71 96 Room Air 07/17/24 11:11 85 96 Room Air 07/17/24 09:44 Room Air 07/17/24 07:43 36.8 C 87 20 117/72 93 Room Air 07/17/24 07:06 68 07/17/24 03:46 36.5 C 72 18 105/48 L 95 Room Air PG Care Time/CCT Total # of Minutes Spent Total Time Spent with Patient: Total time spent is greater than 50% in coordination of care (as documented) at patient's floor/unit and/or counseling patient: Coding Level of Care Code 40511 SUB INP/OBS CARE 2/35MIN Diagnoses Diabetes mellitus with hypoglycemia E11.649 Cough R05.9 Chest pain R07.9 GERD (gastroesophageal reflux disease) K21.9 Alzheimer's dementia G30.9; F02.80
[2024-07-17 15:41] LABS: Hematocrit (blood only) 39.9 % (37.0-47.0); Hemoglobin 13.6 g/dl (12.0-16.0); Mean Corpuscular Hemoglobin 29.6 pg (25.0-34.0); Mean Corpuscular Hgb Conc 34.1 g/dL (32.0-36.0); Mean Corpuscular Volume 86.9 fL (80.0-100.0); Mean Platelet Volume 10.2 fL (9.4-12.4); Platelet Count 279 K/uL (130-400); RDW Coefficient of Variation 13.8 % (11.5-14.5); RDW Standard Deviation 43.7 fL (36.4-46.3); Red Blood Count 4.59 M/uL (4.20-5.40); White Blood Count 7.37 K/ul (4.8-10.8)
--- NOTE | 2024-07-17 15:56 | XRay Report ---
XR chest 2V PA/lateral CLINICAL HISTORY: cough COMPARISON STUDY: 07/09/2024 FINDINGS: Heart size and pulmonary vasculature are normal. No effusion, consolidation, or pneumothora x. IMPRESSION: No pneumonia seen. ACT 112: Negative or not required by law. Electronically signed by: Sandeep Kilpatrick M.D. 07/17/2024 3:54 PM
--- NOTE | 2024-07-18 12:04 | Pharmacy Report ---
Pharmacy Glycemic Short Note 2 - Date of Service July 18, 2024 - Glycemic Short BSG Results (Last 24 hours): 07/17/24 07/17/24 07/17/24 11:56 16:51 20:13 POC Glucose 207 H 199 H 156 H 07/18/24 07/18/24 08:16 11:44 POC Glucose 119 H 184 H OUTPATIENT ANTIDIABETIC REGIMEN: * Toujeo 78 units SC daily * Metformin 500 mg PO daily A1c = 9.9% (07/06/24) ASSESSMENT: 07/17/24 * Patient received 16 units of insulin yesterday, all were bolus. She is still receiving metformin ER 500mg with dinner daily. * Lunch BSGs have still been above goal so just the breakfast bolus insulin parameters have been tightened more. * Will not restart Lantus at this time in order to prevent hypoglycemia as seen when she received the last dose. 07/14/24: * Blood sugars have been tightly controlled over past 48 hours w/ decreasing insulin requirements * Fasting blood sugar of 91 mg/dL this morning - will decrease basal further today to decrease risk of hypoglycemia 07/11/24: * Shala received 43 units of insulin yesterday (20 were basal) * Fasting BSG this AM acceptable, continue current basal regimen * Metformin restarted per provider, utilizing tighter breakfast NovoLog parameters, BSGs stable, continue. * She continues on Levaquin. 07/09/24: * Blood sugars trended up throughout the day yesterday w/ elevated fasting blood sugar this morning (159 mg/dL) * Will increase basal insulin and bolus carb ratio today * Patient is awaiting placement 07/07/24: * Blood sugars labile yesterday, ranging 60-205 mg/dL * Received 21 units of insulin yesterday (10 units of basal and 11 units of prandial/correctional bolus) * Significant difference between inpatient and outpatient insulin dosing thus far * Will make only conservative adjustments today given hypoglycemia yesterday 07/06/24: * 74 yo with PMH of diabetes, hyperlipidemia, GERD, and Alzheimer's presenting with URI symptoms, SOB, diaphoresis and shaking. BSG of 75 mg/dL in the ER. Family reports BSG typically runs around 200-300 mg/dL. BSG did trend up to 121 and 183 mg/dL throughout the evening. Patient received a total of 2 units of Novolog 07/05 PM. * Fasting BSG 07/06 resulted at 72 mg/dL thus it was decided to delay resumption of basal insulin until further evidence of BSG recovery. Will order basal insulin per BGS scale to start this evening. * Will loosen Novolog parameters due to hypoglycemia following breakfast insulin coverage. PLAN FOR INPATIENT GLYCEMIC CONTROL: * Metformin 500 mg PO daily w/ dinner * Basal insulin * hold--will reassess need * Bolus insulin * NovoLog per scale QDB * Goal Range: Low 120 mg/dL - High 150 mg/dL * Correction Factor: 25 mg/dL/unit * Nutritional / Prandial insulin per carb ratio of 1 unit per 6 grams CHO consumed * Bolus insulin * NovoLog per scale QDL, QDD, and TID or Q6hrs while NPO * Goal Range: Low 120 mg/dL - High 150 mg/dL * Correction Factor: 40 mg/dL/unit * Nutritional / Prandial insulin per carb ratio of 1 unit per 15 grams CHO consumed
--- NOTE | 2024-07-18 14:34 | Hospitalist Progress Note ---
Date of Service July 18, 2024 Assessment & Plan (1) Diabetes mellitus with hypoglycemia: (2) Cough: (3) Chest pain: (4) GERD (gastroesophageal reflux disease): (5) Alzheimer's dementia: Plan 74yo female presented with 9 days URI sx with dry cough with associated chest heaviness and shortness of breath with diaphoresis and shaking with BSG 75 on Toujeo 78u daily with new rx for Jardiance reported. Prior lows w/ URI w/ seizure in the past. Recently placed on levaquin for suspected bronchitis and CXR and CTA obtained on admission which were negative for PE or pneumonia. Had been continued on Levaquin for UTI/bronchitis on admission and EKG w/o ischemic changes and troponin negative x 2. #Chest pain/bronchitis/cough CXR negative (again on repeat 07/09), CTA negative for PE. no evidence of acute coronary syndrome some component of the chest pain was musculoskeletal and reproducible on palpation, however, mainly it seemed related to GERD. no further chest pain - she does report history of asthma so cough variant asthma is a possibility, would consider trial of treating asthma if not improving within 1-2 more weeks on acid suppression -completed 5d levaquin. Patient complains of a cough again Repeat chest x-ray negative for pneumonia CBC unremarkable # GERD, hiatal hernia history of cough w/ eating, prior EGD 2014 w/ Dr Case and reported [place] NEED FOR PPI THERAPY. was not on PPI or H2 kari prior to admission - improved, continue twice daily Pepcid and twice daily PPI -she says the EGD has been scheduled for July -recommended elevating HOB - avoid NSAIDs #Hypoglycemia, DM T2 suspected cause for admission with associated diaphoresis and tremors with BSG in 70s, without awareness prior. Home regimen Toujeo 78u SC daily and metformin 500mg daily, NEW rx Jardiance Fe. blood glucose control has significantly improved currently on basal bolus insulin and metformin. blood glucoses reviewed they are overcontrolled today, reviewed recommendations and pharmacy note agree with her plan to reduce the glargine dose A1c 9.9 on repeat Sees an nursing home manager in [place]. Potentially interested in [facility] follow up Home Troujeo dose is 78 - vastly different from inpatient insulin needs related to inconsistently taking? and drinking sweet tea - reduced dose of glargine -metformin resumed. on discharge will utilize 10-15 units of glargine and resume jardiance at the 10 mg dose, further adjustment while in SNF rehab -she has early june prescriptions for jardiance 10 mg and jardiance 25 mg - unclear which one she was taking #Tachycardia - as above, troponin negative and CTA negative for PE. blood pressure and heart rate improved on metoprolol 12.5mg BID - continue #Alzheimer's dementia Patient is able to answer questions appropriately and follow commands TSH/B12 wnl. Additional trazodone 50mg HS prn sleep Continue frequent orientation/delirium prevention strategies. DVT ppx - enoxaparin Dispo: referred to SNF, has a bed at [facility]. Insurance authorization has been denied. Patient wishes to go home with home health. Her daughter will be able to take her home tomorrow Rx for Dexcom 7 sensor was given to the patient Admission and Anticipated Discharge Date Admission Date: July 07, 2024 Subjective Patient feels well overall. Denies chest pain or shortness of breath. She is ready to be discharged but has been waiting for insurance decision Review of Systems Review of Systems: All systems reviewed & are unremarkable except as noted in Subjective Physical Exam Physical Exam: General: Awake, conversant Heart: S1, S2/regular rate and rhythm, no murmur rubs or gallops Lungs: Clear to auscultation bilaterally. Normal effort Abdomen: Soft/nontender/nondistended. No hepatosplenomegaly Extremities: No clubbing/cyanosis. No edema Behavior: Appropriate, cooperative Results & Data Results & Data Vital Signs (Past 12 Hours) Vital Signs Temp Pulse Pulse Resp BP BP Pulse Ox 07/18/24 11:11 36.7 C 67 16 121/71 99 07/18/24 10:53 78 17 98 07/18/24 09:43 07/18/24 07:54 36.6 C 75 16 112/72 96 07/18/24 06:49 80 07/18/24 03:51 36.6 C 80 18 98/60 L 94 O2 Del Method FiO2 07/18/24 11:11 Room Air 07/18/24 10:53 Room Air 21 07/18/24 09:43 Room Air 07/18/24 07:54 Room Air 07/18/24 06:49 07/18/24 03:51 Room Air PG Care Time/CCT Total # of Minutes Spent Total Time Spent with Patient: Total time spent is greater than 50% in coordination of care (as documented) at patient's floor/unit and/or counseling patient: Coding Level of Care Code 68741 SUB INP/OBS CARE 2/35MIN Diagnoses Diabetes mellitus with hypoglycemia E11.649 Cough R05.9 Chest pain R07.9 GERD (gastroesophageal reflux disease) K21.9 Alzheimer's dementia G30.9; F02.80
[2024-07-19 07:38] VITALS: RESP 16
--- NOTE | 2024-07-19 09:08 | Discharge Summary ---
Date of Service July 19, 2024 Admission HPI Per Admitting Provider Shala Salguero is a 74-year-old female with history of diabetes, hyperlipidemia, GERD dementia presenting from home with several complaints. She reports that she has had cough and URI symptoms ongoing since June 26. Her cough is persistent, nonproductive. She has some ongoing central chest heaviness as well as chills and sweats. She denies abdominal pain/nausea/vomiting/diarrhea.Daughter reports that patient has had worsening shortness of breath over the last several days. She has been using her home inhalers with no improvement in symptoms. She started using nebulizer treatments yesterday 4 times daily again with no improvement. Patient was seen at [facility] and was diagnosed with acute bronchitis. She received a prescription for Levaquin 750 mg daily which she has been taking as prescribed. Today patient complaining specifically of profuse diaphoresis and feeling very shaky and jittery. In the ER patient is afebrile, hemodynamically stable. Adequate oxygenation on room air ER course: Tylenol Principal Diagnosis Diabetes type 2 with hypoglycemia Cough - probably related to GERD/reflux Treated for acute bronchitis Discharge Exam General: Awake, conversant Heart: S1, S2/regular rate and rhythm, no murmur rubs or gallops Lungs: Clear to auscultation bilaterally. Normal effort Abdomen: Soft/nontender/nondistended. No hepatosplenomegaly Extremities: No clubbing/cyanosis. No edema Behavior: Appropriate, cooperative Discharge Data Allergies Allergy/AdvReac Type Severity Reaction Status Date / Time codeine Allergy Unknown Itchiness Verified 06/11/23 13:53 erythromycin base Allergy Unknown Itchiness Verified 06/11/23 13:53 Penicillins Allergy Unknown Itchiness Verified 06/11/23 13:53 propoxyphene Allergy Unknown UNKNOWN Verified 06/11/23 13:53 sumatriptan Allergy Unknown Unknown Verified 06/11/23 13:53 adhesive tape AdvReac Mild "Rips skin Unverified 06/11/23 13:53 off with it" Consultations 07/05/24 19:09 ED Decision to Admit Stat 07/10/24 09:15 Consult Gastroenterology Routine Ordered Studies 07/05/24 19:19 CT angio chest PE protocol Stat Diabetes Follow up Diabetes Follow-up Needed for HgbA1c >9% Hospital Course (1) Diabetes mellitus with hypoglycemia: (2) Cough: (3) Chest pain: (4) GERD (gastroesophageal reflux disease): (5) Alzheimer's dementia: Plan 74yo female presented with 9 days URI sx with dry cough with associated chest heaviness and shortness of breath with diaphoresis and shaking with BSG 75 on Toujeo 78u daily with new rx for Jardiance reported. Prior lows w/ URI w/ seizure in the past. Recently placed on levaquin for suspected bronchitis and CXR and CTA obtained on admission which were negative for PE or pneumonia. Had been continued on Levaquin for UTI/bronchitis on admission and EKG w/o ischemic changes and troponin negative x 2. #Chest pain/bronchitis/cough CXR negative (again on repeat 07/09), CTA negative for PE. no evidence of acute coronary syndrome some component of the chest pain was musculoskeletal and reproducible on palpation, however, mainly it seemed related to GERD. no further chest pain - she does report history of asthma so cough variant asthma is a possibility, would consider trial of treating asthma if not improving within 1-2 more weeks on acid suppression -completed 5d levaquin. Patient complains of a cough again Repeat chest x-ray negative for pneumonia CBC unremarkable # GERD, hiatal hernia history of cough w/ eating, prior EGD 2014 w/ Dr Case and reported [place] NEED FOR PPI THERAPY. was not on PPI or H2 kari prior to admission - improved, continue twice daily Pepcid and twice daily PPI -she says the EGD has been scheduled for July -recommended elevating HOB - avoid NSAIDs #Hypoglycemia, DM T2 suspected cause for admission with associated diaphoresis and tremors with BSG in 70s, without awareness prior. Home regimen Toujeo 78u SC daily and metformin 500mg daily, NEW rx Jardiance Fe. blood glucose control has significantly improved currently on basal bolus insulin and metformin. blood glucoses reviewed they are overcontrolled today, reviewed recommendations and pharmacy note agree with her plan to reduce the glargine dose A1c 9.9 on repeat Sees an concrete batch plant operator in [place]. Potentially interested in [facility] follow up Home Troujeo dose is 78 - vastly different from inpatient insulin needs related to inconsistently taking? and drinking sweet tea - reduced dose of glargine -metformin resumed. on discharge will utilize 10-15 units of glargine and resume jardiance at the 10 mg dose, further adjustment while in SNF rehab -she has early june prescriptions for jardiance 10 mg and jardiance 25 mg - unclear which one she was taking #Tachycardia - as above, troponin negative and CTA negative for PE. blood pressure and heart rate improved on metoprolol 12.5mg BID - continue #Alzheimer's dementia Patient is able to answer questions appropriately and follow commands TSH/B12 wnl. Additional trazodone 50mg HS prn sleep Continue frequent orientation/delirium prevention strategies. DVT ppx - enoxaparin Dispo: referred to SNF, has a bed at [facility]. Insurance authorization has been denied. Patient wishes to go home with home health. Total Time Total Time Spent Total Time Spent (In Minutes): 35 Discharge Plan Discharge Items Patient Disposition: Home - Home Health Services Reason For Visit: DIAPHORESIS, HYPOGLYCEMIA, COUGH Discharge Diagnosis: Diabetes type 2 with hypoglycemia Cough - probably related to GERD/reflux Treated for acute bronchitis Activity: Resume your previous activity Non-emergency contact: Primary Care Provider Call non-emergency contact if: you have any medication questions and your symptoms worsen Follow-up/Referrals: Jessica Dan D.O. [Primary Care Provider] - (PLEASE CALL YOUR PRIMARY CARE PROVIDER TO SCHEDULE A HOSPITAL DISCHARGE FOLLOW-UP APPOINTMENT WITHIN 7-10 DAYS) Diet: Carb Consistent or DM2 Addtl Attending Provider Instructions: Please avoid sweet tea, juice, soda or any sweetened drinks. Try making tea at home and sweetening with stevia - this will not significantly raise your blood sugar Reduce Toujeo dose to 40 units Continue metformin Hold Jardiance until you follow up with endocrinology Keep a log of your insulin doses and blood sugar Use the dexcom consistently - we wrote Rx for new meter Follow up with Rose Foster in endocrinology [facility]. We made a referral to [facility] endocrinology if you want to change providers, but it will probably take a long time to get an appointment. Call the endocrinology clinic for advice on insulin if you have hypoglycemia, or if you have two or more checks in a row with blood sugar >300 We think the cough and chest pain is related to your hiatal hernia and GERD/ reflux Take pepcid (famotidine) and protonix (pantoprazole) twice a day for now, follow up with gastroenterology for endoscopy Its a good idea to elevate the head of your bed appx 6 inches with a stack of wood blocks or bed risers - you can get these online from [employer] or [employer] You had a course of antibiotics for bronchitis but there was no evidence of pneumonia We prescribed metoprolol to reduce your blood pressure and heart rate We prescribed nystatin for oral thrush (yeast) - you can take this for a week or until the bottle runs out Home health PT, OT, and RN for diabetes management It was a pleasure taking care of your in the hospital, Abby Driscoll MD Addtl Sample Selector Provider Instructions: PRESCRIPTIONS NEEDED AT DISCHARGE: 1.) Dexcom G7 retail wireless sales consultant- 1 each. Pending Studies at Discharge: No Stand-Alone Forms: My [facility] Medications and DC Order Prescriptions: New metoprolol tartrate 25 mg Tablet 12.5 mg PO BID Qty: 30 0RF famotidine 20 mg Tablet 20 mg PO BID Qty: 60 0RF pantoprazole 40 mg Tablet,Delayed Release (Dr/Ec) 40 mg PO BID Qty: 60 0RF nystatin 100,000 unit/mL Suspension 5 ml PO QID Qty: 60 0RF (DME) Dexcom G7 Auto Damage Adjuster Misc See Rx Instructions .Route Qty: 1 0RF Rx Instructions: As directed Continued trazodone 50 mg tablet 50 mg PO DAILY albuterol sulfate 2.5 mg /3 mL (0.083 %) solution for nebulization 2.5 mg inhalation Q6H PRN (Reason: sob) Rx Instructions: been using consistently loratadine 10 mg tablet 10 mg PO DAILY calcium carbonate-vitamin D3 600 mg-10 mcg (400 unit) tablet 1 tab PO UD Rx Instructions: 1 tab po daily. per pt, she doesnt think she still takes it. Isn't sure. (DME) pen needle, diabetic [Easy Touch] 32 gauge x 1/4" needle See Rx Instructions .ROUTE .MEDSUPPLY Qty: 100 Rx Instructions: As directed (DME) pen needle, diabetic [BD Carina 2nd Gen Pen Needle] 32 gauge x 5/32" needle See Rx Instructions .ROUTE .MEDSUPPLY Qty: 1200 Rx Instructions: As directed (DME) Dexcom G7 Sensor Device See Rx Instructions .ROUTE .MEDSUPPLY Qty: 1 Rx Instructions: As directed metformin 500 mg tablet 500 mg PO UD Rx Instructions: per pt she still takes medication as 500 mg po daily.. last filled 01/23/24 30 day supply rizatriptan 10 mg tablet 10 mg PO DIRECTED PRN (Reason: Migraine Headache) fenofibrate micronized 134 mg capsule 134 mg PO UD Rx Instructions: 134 mg po qam. Per pt, she says she still takes medication. Last filled 08/29/23 30 day supply cholecalciferol (vitamin D3) [Vitamin D3] 50 mcg (2,000 unit) tablet 3,000 unit PO QAM albuterol sulfate 90 mcg/actuation HFA aerosol inhaler 1 puff INHALATION Q4H PRN (Reason: Wheezing) duloxetine 60 mg capsule,delayed release(DR/EC) 60 mg PO UD Rx Instructions: 60 mg po daily. Per pt, this doesnt sound familiar to her. last filled 05/17/24 90 day supply insulin glargine U-300 conc [Toujeo SoloStar U-300 Insulin] 300 unit/mL (1.5 mL) insulin pen 40 unit SUBCUT DAILY Qty: 0 0RF Discontinued levofloxacin 750 mg tablet 750 mg PO DAILY Discharge Orders: Discharge Order (Routine); Ordered 07/19/24 Ordered By: Mary Rogel Admission Data Admit Date/Time: 07/07/24 18:21 Attending Provider: Mary Rogel Admit Provider: Ritu Estes Primary Care Provider: Jessica Dan Other Providers: Ritu Estes; [place]; Michael Santiago Other Interventions: Discharge Summary Assessment (RN) Last Done: 07/19/24 10:44
[2024-07-19 10:45] VITALS: BP 113/65; PULSE 80; TEMP 98.1; O2SAT 95
== END 2024-07-19 11:51 | disposition home health service (06) | DRG 639 ==
LOC: ED 16:03 → 2N 16:03 → SUATTDRO 20:03 → 2N 22:29 → SUATTDRO 07-07 18:21